=== PATIENT | male | born 1950 | race Caucasian/White ===

== ENCOUNTER 2019-05-25 16:56 | Inpatient (IN) | payer OTHER ==
[~2019-05-25] VITALS: Ht 177.8 cm; Wt 105.0 kg
[~2019-05-25 16:56] MED LIST: CYCL10 PO; LISI5 PO; METO50ER PO; MORP15ER PO; NITR.4SL SL; POTA10T PO; Prozac20 MG PO
[2019-05-25] MEDS ORDERED: FUROSEMIDE20 MG PO (17:24)
[2019-05-25] MEDS ORDERED: ZOLP10 PO (17:25)
[2019-05-25 17:44] LABS: BASOPHILS ABSOLUTE AUTO 0.03 K/mm3 (0.00-0.23); BASOPHILS PERCENT AUTO 0 % (0-2); EOSINOPHILS ABSOLUTE AUTO 0.16 K/mm3 (0.00-0.68); EOSINOPHILS PERCENT AUTO 1 % (0-6); Hematocrit 42.7 % (37.0-53.0); Hemoglobin 14.3 g/dL (13.5-17.5); IMMATURE GRAN ABSOLUTE AUTO 0.06 K/mm3 (0.00-0.10); IMMATURE GRAN PERCENT AUTO 1 % (0-1); LYMPHOCYTES ABSOLUTE AUTO 1.53 K/mm3 (0.84-5.20); LYMPHOCYTES PERCENT AUTO 12 % (21-46); MONOCYTES ABSOLUTE AUTO 0.91 K/mm3 (0.16-1.47); MONOCYTES PERCENT AUTO 7 % (4-13); Mean Corpuscular HGB 27.9 pg (26.0-34.0); Mean Corpuscular HGB Conc 33.5 g/dL (31.5-36.5); Mean Corpuscular Volume 83 fL (80-100); Mean Platelet Volume 10.1 fL (9.1-12.4); NEUTROPHILS ABSOLUTE AUTO 9.71 K/mm3 (1.96-9.15); NEUTROPHILS PERCENT AUTO 78 % (41-73); Platelet Count 209 K/mm3 (150-400); RDW Coefficient Variation 16.4 % (11.7-14.2); RDW Standard Deviation 49.8 fL (35.1-46.3); Red Blood Cell Count 5.12 M/mm3 (4.30-5.90)
[2019-05-25 18:12] LABS: Alanine Aminotransfer (ALT/SGP 18 U/L (12-78); Albumin, Blood 3.5 g/dL (3.4-5.0); Albumin/Globulin Ratio 1.2 (0.8-1.8); Alk Phos 92 U/L (50-136); Anion Gap 11 mmol/L (6-16); Aspartate Aminotrans (AST/SGOT 20 U/L (12-37); Bilirubin, Total 0.6 mg/dL (0.1-1.0); Blood Urea Nitrogen 17 mg/dL (8-24); Bun/Creatinine Ratio 11.9 (12.0-20.0); CO2, Blood 24 mmol/L (21-32); Calcium, Blood 6.5 mg/dL (8.5-10.1); Chloride, Blood 107 mmol/L (98-108); Creatinine, Blood 1.43 mg/dL (0.60-1.20); Glomerular Filtration Rate 52 (60-); Glucose, Blood 161 mg/dL (70-99); Potassium, Blood 2.6 mmol/L (3.5-5.5); Sodium, Blood 142 mmol/L (136-145); Total Protein, Blood 6.5 g/dL (6.4-8.2); Troponin I <0.015 ng/mL (0.000-0.040)
[2019-05-25 19:28] LABS: International Normalized Ratio 0.97; Prothrombin Time Results 10.3 Sec (9.7-11.5)
--- NOTE | 2019-05-26 00:47 | NUR ---
PATIENT ADMITTED FROM ER. AAOX4. B/P 197/132. SPOKE WITH LAUNDROMAT MANAGER PHYSICIAN WHO WANTS NG TUBE PLACED AND PREMEDICATED WITH ATIVAN FOR PLACEMENT. SPOKE TO NURSING LOGISTICS PLANNING ENGINEER MAGDALENA ANDERSON WHO REQUESTED THAT RESPIRATORY PLACE PATIENT ON CONTINUOUS PULSE OXIMETRY. PATIENT PLACED ON CONT. SPO2 MONITOR AND DOCK SUPERINTENDENT PLACED NG TUBE AFTER PATIENT MEDICATED WITH 2MG ATIVAN. TUBE PLACED AND ONLY SMALL AMOUNT OF FLUID ASPIRATED. SPOKE TO LAUNDROMAT MANAGER PHYSICIAN AGAIN REQUESTING XRAY VERIFICATION OF NG TUBE. ORDER PLACED AND WAITING FOR XRAY TO BE OBTAINED. PATIENT RESTING COMFORTABLY IN BED. RATES PAIN AT 4 WITH NO LONGER COMPLAINING OF NAUSEA. WILL CONTINUE TO MONITOR AND WAIT FOR XRAY RESULTS.
[2019-05-26 05:06] LABS: BASOPHILS ABSOLUTE AUTO 0.01 K/mm3 (0.00-0.23); BASOPHILS PERCENT AUTO 0 % (0-2); EOSINOPHILS ABSOLUTE AUTO 0.03 K/mm3 (0.00-0.68); EOSINOPHILS PERCENT AUTO 0 % (0-6); Hematocrit 38.7 % (37.0-53.0); Hemoglobin 12.8 g/dL (13.5-17.5); IMMATURE GRAN ABSOLUTE AUTO 0.02 K/mm3 (0.00-0.10); IMMATURE GRAN PERCENT AUTO 0 % (0-1); LYMPHOCYTES ABSOLUTE AUTO 1.45 K/mm3 (0.84-5.20); LYMPHOCYTES PERCENT AUTO 18 % (21-46); MONOCYTES ABSOLUTE AUTO 0.85 K/mm3 (0.16-1.47); MONOCYTES PERCENT AUTO 11 % (4-13); Mean Corpuscular HGB 27.2 pg (26.0-34.0); Mean Corpuscular HGB Conc 33.1 g/dL (31.5-36.5); Mean Corpuscular Volume 82 fL (80-100); Mean Platelet Volume 10.1 fL (9.1-12.4); NEUTROPHILS ABSOLUTE AUTO 5.72 K/mm3 (1.96-9.15); NEUTROPHILS PERCENT AUTO 71 % (41-73); Platelet Count 173 K/mm3 (150-400); RDW Coefficient Variation 16.5 % (11.7-14.2); RDW Standard Deviation 49.7 fL (35.1-46.3); White Blood Cell Count 8.08 K/mm3 (4.00-11.30)
--- NOTE | 2019-05-26 05:08 | NUR ---
SHIFT SUMMARY AAOX4. BP ELEVATED AND PHYSICIAN NOTIFIED AND ORDERS RECEIVED. NG TUBE PLACED AND CONNECTED TO LOW INTERMITTENT SUCTION. NAUSEA RESOLVED AFTER NG TUBE PLACED. XRAY OBTAINED FOR NG TUBE PLACEMENT. PATIENT PLACED ON CONTINUOUS PULSE OX AFTER RECEIVING 2MG ATIVAN FOR TUBE PLACEMENT. PATIENT UP SBA. WILL CONTINUE TO MONITOR AND REPORT TO ONCOMING SHIFT.
[2019-05-26 05:35] LABS: Bun/Creatinine Ratio 11.8 (12.0-20.0); Calcium, Blood 6.5 mg/dL (8.5-10.1); Creatinine, Blood 1.27 mg/dL (0.60-1.20); Potassium, Blood 3.3 mmol/L (3.5-5.5)
--- NOTE | 2019-05-26 16:58 | NUR ---
SHIFT SUMMARY PATIENT IS HAVING MINIMAL OUTPUT, NOTED 100CC SINCE START OF SHIFT. PATIENT HAS HAD 1 EPISODE OF GAS NOTED. HYPOACTIVE BOWELS. NO NAUSEA. BLOOD PRESSURE ELEVATED. WORKING WITH DR AND MEDS PER EMAR TO GET THIS WNL. PATIENT IS ALERT AND ORIENTED. ABLE TO MAKE NEEDS KNOWN. MEDICATED FOR PAIN REGULARLY. BEDBATH GIVEN TODAY.
[2019-05-26 17:11] LABS: C-REACTIVE PROTEIN, EXT RANGE 1.69 mg/dL (0.000-0.300)
[2019-05-26 17:41] LABS: Potassium, Blood 3.2 mmol/L (3.5-5.5)
--- NOTE | 2019-05-27 00:38 | NUR ---
AFTER RECEIVING REPORT I NOTICED THAT THE PATIENT HAD SHY RED BLOOD IN THE TUBING OF HIS NG TUBE. I NOTIFIED THE HYDROCHLORIC ACID OPERATOR PHYSICIAN ABOUT BLOOD COMING FROM NG TUBE. WILL CONTINUE TO MONITOR PER PHYSICIAN RECOMMENDATION. PATIENTS NG TUBE THEN WAS ACCIDENTALLY PULLED OUT WHILE PATIENT WAS GETTING BACK IN BED FROM THE [facility]. PATIENT STATES HE DOES NOT WANT THE TUBE REPLACED AT THIS TIME BUT IF HE BECOMES NAUSEOUS WE CAN REEVALUATE TUBE BEING REPLACED. PAIENT ALSO STATES THAT MAYBE HE WILL BE WILLING TO REPLACE THE TUBE IN THE MORNING. WILL CONTINUE TO MONITOR.
--- NOTE | 2019-05-27 02:57 | NUR ---
REPLACED NG TUBE AFTER PATIENT BEGAN HAVING NAUSEA AND SOME VOMITING. TUBE PLACED AND CLEAR MUCOUS LIKE LIQUID WAS PULLED THROUGH TUBE. CONNECTED TO LOW INTERMITTENT SUCTION.
--- NOTE | 2019-05-27 04:46 | NUR ---
SHIFT SUMMARY BLOOD PRESSURE BETTER CONTROLLED. NG TUBE REPLACED AFTER ACCIDENTALLY BEING PULLED. BLOOD NO LONGER SEEN IN TUBING. AAOX4. PAIN NOT WELL CONTROLLED BY DILAUDID. PATIENT RATING HEADACHE PAIN 9/10.STEAM FITTER PHYSICIAN NOTIFIED ABOUT SHY RED BLOOD IN NG TUBE. UP 1 PERSON ASSIST TO BSC. WILL CONTINUE TO MONITOR.
[2019-05-27 05:02] LABS: BASOPHILS ABSOLUTE AUTO 0.01 K/mm3 (0.00-0.23); BASOPHILS PERCENT AUTO 0 % (0-2); EOSINOPHILS ABSOLUTE AUTO 0.07 K/mm3 (0.00-0.68); EOSINOPHILS PERCENT AUTO 1 % (0-6); Hematocrit 34.5 % (37.0-53.0); Hemoglobin 11.2 g/dL (13.5-17.5); IMMATURE GRAN ABSOLUTE AUTO 0.04 K/mm3 (0.00-0.10); IMMATURE GRAN PERCENT AUTO 1 % (0-1); LYMPHOCYTES ABSOLUTE AUTO 1.04 K/mm3 (0.84-5.20); LYMPHOCYTES PERCENT AUTO 13 % (21-46); MONOCYTES ABSOLUTE AUTO 0.78 K/mm3 (0.16-1.47); MONOCYTES PERCENT AUTO 10 % (4-13); Mean Corpuscular HGB 27.2 pg (26.0-34.0); Mean Corpuscular HGB Conc 32.5 g/dL (31.5-36.5); Mean Corpuscular Volume 84 fL (80-100); Mean Platelet Volume 10.3 fL (9.1-12.4); NEUTROPHILS ABSOLUTE AUTO 6.12 K/mm3 (1.96-9.15); NEUTROPHILS PERCENT AUTO 76 % (41-73); Platelet Count 175 K/mm3 (150-400); RDW Coefficient Variation 16.9 % (11.7-14.2); RDW Standard Deviation 51.8 fL (35.1-46.3); Red Blood Cell Count 4.12 M/mm3 (4.30-5.90); White Blood Cell Count 8.06 K/mm3 (4.00-11.30)
[2019-05-27 05:20] LABS: Albumin, Blood 3.2 g/dL (3.4-5.0); Anion Gap 6 mmol/L (6-16); Blood Urea Nitrogen 10 mg/dL (8-24); Bun/Creatinine Ratio 9.5 (12.0-20.0); CO2, Blood 27 mmol/L (21-32); Calcium, Blood 6.7 mg/dL (8.5-10.1); Chloride, Blood 107 mmol/L (98-108); Creatinine, Blood 1.05 mg/dL (0.60-1.20); Glomerular Filtration Rate >60 (60-); Glucose, Blood 102 mg/dL (70-99); Phosphorus, Blood 2.7 mg/dL (2.5-4.9); Potassium, Blood 3.2 mmol/L (3.5-5.5); Sodium, Blood 140 mmol/L (136-145)
--- NOTE | 2019-05-27 08:58 | NUR ---
LEFT MESSAGE ON VOICE MAIL FOR SOMETHING FOR NAUSEA
--- NOTE | 2019-05-27 09:13 | NUR ---
PER GIVE EXTRA DOSE ZOFRAN 4 MG IV.
--- NOTE | 2019-05-27 09:28 | NUR ---
NG TAKEN OUTM ABOUTY 0910 WAS CURLED UP IN MOUITH DUE TO RETCHING.
--- NOTE | 2019-05-27 10:01 | NUR ---
PER PATIENT GOING TO SURGERY TODAY FOR SM INTESTINE RESECTION. PER MD IF PATIENT DOES NOT WISH NG REPLACED DOES NOT NEED TO HAVE IT. PER MD NG WILL NOT HELP.
--- NOTE | 2019-05-27 16:48 | NUR ---
05/27/19 1648 Jonathan Swift CONVERTED FROM OPEN EX LAP TO DIAGNOSTIC LAPAROSCOPIC AT 1650. RELIEF COUNT DONE WITH NEW STAFF.
--- NOTE | 2019-05-27 18:09 | NUR ---
REPORT TO ROCHELLE DYE IN PCU. PATIENT TO GO TO PCU AFTER SURGERY.ANSWER ALL QUESTIONS. BELONGINGS TAKEN TO PCU
--- NOTE | 2019-05-27 18:37 | NUR ---
pt's belongings are now sent to pcu 16 family member came up stairs and asked where he was i dirrected her to the location mentioned to me by the nurse.
[2019-05-28 03:30] LABS: BASOPHILS PERCENT AUTO 0 % (0-2); EOSINOPHILS PERCENT AUTO 0 % (0-6); Hematocrit 33.3 % (37.0-53.0); Hemoglobin 10.8 g/dL (13.5-17.5); IMMATURE GRAN ABSOLUTE AUTO 0.05 K/mm3 (0.00-0.10); IMMATURE GRAN PERCENT AUTO 0 % (0-1); LYMPHOCYTES ABSOLUTE AUTO 0.71 K/mm3 (0.84-5.20); LYMPHOCYTES PERCENT AUTO 6 % (21-46); MONOCYTES PERCENT AUTO 5 % (4-13); Mean Corpuscular HGB 27.8 pg (26.0-34.0); Mean Corpuscular HGB Conc 32.4 g/dL (31.5-36.5); Mean Corpuscular Volume 86 fL (80-100); Mean Platelet Volume 10.2 fL (9.1-12.4); NEUTROPHILS ABSOLUTE AUTO 9.89 K/mm3 (1.96-9.15); NEUTROPHILS PERCENT AUTO 89 % (41-73); Platelet Count 170 K/mm3 (150-400); RDW Coefficient Variation 17.2 % (11.7-14.2); RDW Standard Deviation 55.2 fL (35.1-46.3); Red Blood Cell Count 3.89 M/mm3 (4.30-5.90); White Blood Cell Count 11.15 K/mm3 (4.00-11.30)
[2019-05-28 03:55] LABS: Alanine Aminotransfer (ALT/SGP 27 U/L (12-78); Alk Phos 78 U/L (50-136); Anion Gap 8 mmol/L (6-16); Aspartate Aminotrans (AST/SGOT 40 U/L (12-37); Bilirubin, Total 0.7 mg/dL (0.1-1.0); Blood Urea Nitrogen 13 mg/dL (8-24); Bun/Creatinine Ratio 11.1 (12.0-20.0); CO2, Blood 25 mmol/L (21-32); Calcium, Blood 6.6 mg/dL (8.5-10.1); Chloride, Blood 107 mmol/L (98-108); Creatinine, Blood 1.17 mg/dL (0.60-1.20); Glomerular Filtration Rate >60 (60-); Glucose, Blood 137 mg/dL (70-99); Potassium, Blood 3.4 mmol/L (3.5-5.5); Sodium, Blood 140 mmol/L (136-145)
--- NOTE | 2019-05-28 04:18 | NUR ---
ASSUMED CARE APPROXIMATELY 192; PT COMING FROM SURGICAL PROCEDURE, RHODA TY; PT TALKING TO SPOUSE AT BEDSIDE 2-3 WORD SENTENCES; PT C/O SEVERE PAIN; PT MEDICATED PER EMAR CONSISTENTLY THROUGH THE NIGHT; SURGICAL SITE AQUACELL BANDAGE APPEARS TO BE SOAKED BUT NOT THROUGH; PT HAS TRIED TO URINATE A FEW TIMES IN THE NIGHT STATES THAT HE NEEDS TO BUT CANNOT; L HAND FIELD START IV DC'D; PT HAS 20G IV IN R HAND; CALL LIGHT IN REACH; BED IN LOWEST POSITION; WILL CONTINUE TO MONITOR AND ASSESS UNTIL HAND OFF TO DAY SHIFT RN.
--- NOTE | 2019-05-28 05:55 | NUR ---
BLADDER SCAN: PATIENT BLADDER SCANED DUE TO THE FACT THAT PATIENT HAD ONLY VOIDED APPROX 10 ML'S THROUGHOUT THE NIGHT. PATIENT ALREADY HAVING ABD PAIN DUE TO RECENT SURGERY. PATIENT BLADDER SANED WITH THE RESULT OF 298 ML'S. CHARGE NURSE AWARE AND STATES IT'S FINE TO GIVE HIM MORE TIME TO VOID ON HIS OWN. PATIENT VERY ADAMANT THAT HE DOES NOT WANT TO HAVE A CATHETER PLACED.
--- NOTE | 2019-05-28 15:15 | NUR ---
Pt ref bath. Says will be here soon and doesn't want to "conflict that" I told him to just call when he is ready and I will come help him. He said thank you and then asked if he could have it tele off since is IV meds are done. I explaied that we have to have a DR order for that and that I would talk to his RN so she can figure all that out. call light in reach.
--- NOTE | 2019-05-28 17:30 | NUR ---
SHIFT SUMMARY PT ALERT AND ORIENTED. VS STABLE. O2 SATS REMAIN ABOVE 90% ON RA. HR NSR RATE IN 80'S. AQUACEL DRESSING CHANGED THIS SHIFT. PT COMPLAINS OF PAIN IN HER ABD AND MEDICATED PER EMAR. PT TOLERATING CLEAR LIQUIDS. DIET TO BE ADVANCED TOLERATED. PT TO BE TRANSFERRED TO SURGICAL FLOOR.
--- NOTE | 2019-05-28 18:23 | NUR ---
PT TO RM 224 FROM PCU. RESTING IN BED. REPORTED 10/10 PAIN, MEDICATED PER ORDERS W/1 MG IV DILAUDID. DENIES ANY OTHER NEEDS AT THIS TIME. DRESSING TO MIDLINE ABDOMINAL INCISION HAS SMALL AMT SHADOWING. SPOUSE AT BEDSIDE. CALL LIGHT IN REACH.
[2019-05-29 04:33] LABS: BASOPHILS ABSOLUTE AUTO 0.01 K/mm3 (0.00-0.23); BASOPHILS PERCENT AUTO 0 % (0-2); EOSINOPHILS PERCENT AUTO 1 % (0-6); Hemoglobin 10.7 g/dL (13.5-17.5); IMMATURE GRAN ABSOLUTE AUTO 0.06 K/mm3 (0.00-0.10); IMMATURE GRAN PERCENT AUTO 1 % (0-1); LYMPHOCYTES ABSOLUTE AUTO 1.12 K/mm3 (0.84-5.20); LYMPHOCYTES PERCENT AUTO 12 % (21-46); MONOCYTES ABSOLUTE AUTO 1.29 K/mm3 (0.16-1.47); MONOCYTES PERCENT AUTO 13 % (4-13); Mean Corpuscular HGB 27.4 pg (26.0-34.0); Mean Corpuscular HGB Conc 32.4 g/dL (31.5-36.5); Mean Corpuscular Volume 84 fL (80-100); Mean Platelet Volume 10.2 fL (9.1-12.4); NEUTROPHILS ABSOLUTE AUTO 7.17 K/mm3 (1.96-9.15); NEUTROPHILS PERCENT AUTO 74 % (41-73); Platelet Count 205 K/mm3 (150-400); RDW Coefficient Variation 17.3 % (11.7-14.2); RDW Standard Deviation 53.3 fL (35.1-46.3); Red Blood Cell Count 3.91 M/mm3 (4.30-5.90); White Blood Cell Count 9.75 K/mm3 (4.00-11.30)
[2019-05-29 04:55] LABS: Alanine Aminotransfer (ALT/SGP 29 U/L (12-78); Alk Phos 79 U/L (50-136); Anion Gap 10 mmol/L (6-16); Aspartate Aminotrans (AST/SGOT 40 U/L (12-37); Bilirubin, Total 0.5 mg/dL (0.1-1.0); Blood Urea Nitrogen 13 mg/dL (8-24); Bun/Creatinine Ratio 11.5 (12.0-20.0); CO2, Blood 27 mmol/L (21-32); Calcium, Blood 6.3 mg/dL (8.5-10.1); Chloride, Blood 104 mmol/L (98-108); Creatinine, Blood 1.13 mg/dL (0.60-1.20); Glomerular Filtration Rate >60 (60-); Glucose, Blood 103 mg/dL (70-99); Phosphorus, Blood 2.2 mg/dL (2.5-4.9); Potassium, Blood 2.9 mmol/L (3.5-5.5); Sodium, Blood 141 mmol/L (136-145)
--- NOTE | 2019-05-29 06:08 | NUR ---
SHIFT SUMMARY LYING IN LOW FOWLERS WITH EYES OPEN WHILE WATCHING TV. HAS BEEN PLEASANT AND COOPERATIVE THIS SHIFT. PAIN MANAGAMENT VIA PRN MEDS. DENIES FURTHER NEEDS AT THIS TIME. SAFETY MEASURES IN PLACE. WILL GIVE HAND OFF TO ONCOMING SHIFT USING SBAR.
--- NOTE | 2019-05-29 16:56 | NUR ---
SHIFT SUMMARY PT ABD FIRM AND DISTENDED BUT PASSING GAS. ONLY TAKING SIPS OF WATER SINCE BREAKFAST. UP TO USE BATHROOM SEVERAL TIMES BUT REPORTS FEELING HE DID NOT FEEL UP TO WALKING IN HALLWAY. HTN CONTINUES W/ RELIEF FROM IV HYDRALAZINE. PAIN IS SOMEWHAT BETTER CONTROLLED FROM CHANGING TO TID BUT STILL HIGH.
[2019-05-30 03:47] LABS: Adenovirus F 40/41 Not Detected (NOT DETECT); Astrovirus Not Detected (NOT DETECT); Campylobacter Sp Not Detected (NOT DETECT); Cryptosporidium Not Detected (NOT DETECT); Cyclospora Cayetanensis Not Detected (NOT DETECT); E. Coli O157 Not Detected (NOT DETECT); Entamoeba Histolytica Not Detected (NOT DETECT); Enteroaggregative E. coli-EAEC Not Detected (NOT DETECT); Enteropathogenic E. coli-EPEC Not Detected (NOT DETECT); Enterotoxigenic E. coli-ETEC Not Detected (NOT DETECT); Giardia Lamblia Not Detected (NOT DETECT); Norovirus GI/GII Not Detected (NOT DETECT); Plesiomonas Shigelloides Not Detected (NOT DETECT); Rotavirus A Not Detected (NOT DETECT); Salmonella Sp Not Detected (NOT DETECT); Sapovirus Not Detected (NOT DETECT); Shiga Toxin-prod E. coli-STEC Not Detected (NOT DETECT); Shigella/Enteroin E. coli-EIEC Not Detected (NOT DETECT); Vibrio Cholerae Not Detected (NOT DETECT); Vibrio Sp Not Detected (NOT DETECT); Yersinia Enterocolitica Not Detected (NOT DETECT)
[2019-05-30 04:45] LABS: Anion Gap 13 mmol/L (6-16); Blood Urea Nitrogen 12 mg/dL (8-24); Bun/Creatinine Ratio 10.3 (12.0-20.0); CO2, Blood 24 mmol/L (21-32); Calcium, Blood 6.1 mg/dL (8.5-10.1); Chloride, Blood 101 mmol/L (98-108); Creatinine, Blood 1.17 mg/dL (0.60-1.20); Glomerular Filtration Rate >60 (60-); Glucose, Blood 112 mg/dL (70-99); Phosphorus, Blood 3.7 mg/dL (2.5-4.9); Potassium, Blood 2.8 mmol/L (3.5-5.5); Sodium, Blood 138 mmol/L (136-145)
--- NOTE | 2019-05-30 06:35 | NUR ---
SHIFT SUMMARY PT POD#3 OPEN MELONY. AAOX4. DISCOMFORT CONTROLLED WITH SCHEDULED MS CONTIN + 1MG IV DILAUDID X1 THIS SHIFT, NAUSEA CONTROLLED WITH 4MG IV ZOFRAN X1, NO EMESIS. ABD INCISIONS WITH DRESSING, QUARTER SIZE RED DRAINAGE NOTED UPON ASSESSMENT, NO INCREASE THIS SHIFT. PT UP TO RESTROOM SBA WITH FWW, CONTINUE TO ENCOURAGE. MULTIPLE LOOSE BMs THIS SHIFT. PT REPORTING THE SENSATION OF NEEDING TO VOID, BLADDER SCAN POST VOID OF 350cc, PT EDUCATED REGARDING NEXT INTERVENTIONS + PT REFUSING STRAIGHT CATHETER T/O NIGHT, CONTINUE TO EDUCATE. PT RESTING WELL THIS AM. CALL CEDRIC IN LACHELLE GRANADOS.
--- NOTE | 2019-05-30 18:08 | NUR ---
PATIENT ENCOURAGED TO BE OOB AMBULATING THIS SHIFT. PATIENT IS RESISTIVE TO ACTIVITY DUE TO FEAR OF EXPLOSIVE LIQUID STOOL. PATIENT WITH 1 EPISODE OF INCONT OF STOOL. PT REPORTS CHRONIC BACK AND ABD PAIN AND FAIR RELIEF WITH PAIN MEDS. PT YUAN DIET WITHOUT NAUSEA. IV POTASSIUM INFUSION SLOWED FROM SCHEDULED RATE DUE TO PATIENTS REPORT OF BURNING AND ARM PAIN WITH INFUSION. PATIENT IN ISOLATION FOR C DIFF
[2019-05-31 05:12] LABS: Albumin, Blood 2.9 g/dL (3.4-5.0); Anion Gap 9 mmol/L (6-16); Blood Urea Nitrogen 13 mg/dL (8-24); Bun/Creatinine Ratio 11.5 (12.0-20.0); CO2, Blood 27 mmol/L (21-32); Calcium, Blood 6.7 mg/dL (8.5-10.1); Chloride, Blood 100 mmol/L (98-108); Creatinine, Blood 1.13 mg/dL (0.60-1.20); Glomerular Filtration Rate >60 (60-); Glucose, Blood 89 mg/dL (70-99); Phosphorus, Blood 2.7 mg/dL (2.5-4.9); Potassium, Blood 2.9 mmol/L (3.5-5.5); Sodium, Blood 136 mmol/L (136-145)
--- NOTE | 2019-05-31 06:43 | NUR ---
SHIFT SUMMARY: LUIS HAS COMPLAINED OF 7-9/10 PAIN FOR WHICH IV DILAUDID IS EFFECTIVE. HE STATES THAT HIS CHRONIC BACK PAIN HAS A BASELINE OF 6/10. HE REPORTED 2 EPISDOES OF DIARRHEA LAST NIGHT. HE IS INDEPENDENT IN HIS ROOM. HE IS ABLE TO MAKE HIS NEEDS KNOWN. NO ACUTE CHANGES THIS SHIFT.
--- NOTE | 2019-05-31 12:20 | NUR ---
1145 iv infiltrated k rider infusing, tender, iv site slightly puffy and dc'd. spoke with dr Reinoso regarding IV
[2019-05-31 15:26] LABS: BASOPHILS ABSOLUTE AUTO 0.02 K/mm3 (0.00-0.23); BASOPHILS PERCENT AUTO 0 % (0-2); EOSINOPHILS ABSOLUTE AUTO 0.38 K/mm3 (0.00-0.68); EOSINOPHILS PERCENT AUTO 5 % (0-6); Hemoglobin 11.7 g/dL (13.5-17.5); IMMATURE GRAN ABSOLUTE AUTO 0.04 K/mm3 (0.00-0.10); IMMATURE GRAN PERCENT AUTO 1 % (0-1); LYMPHOCYTES ABSOLUTE AUTO 1.04 K/mm3 (0.84-5.20); LYMPHOCYTES PERCENT AUTO 14 % (21-46); MONOCYTES ABSOLUTE AUTO 1.23 K/mm3 (0.16-1.47); MONOCYTES PERCENT AUTO 16 % (4-13); Mean Corpuscular HGB 27.5 pg (26.0-34.0); Mean Corpuscular HGB Conc 32.5 g/dL (31.5-36.5); Mean Corpuscular Volume 85 fL (80-100); Mean Platelet Volume 10.3 fL (9.1-12.4); NEUTROPHILS ABSOLUTE AUTO 5.02 K/mm3 (1.96-9.15); NEUTROPHILS PERCENT AUTO 65 % (41-73); Platelet Count 256 K/mm3 (150-400); RDW Coefficient Variation 16.6 % (11.7-14.2); RDW Standard Deviation 51.3 fL (35.1-46.3); Red Blood Cell Count 4.26 M/mm3 (4.30-5.90); White Blood Cell Count 7.73 K/mm3 (4.00-11.30)
--- NOTE | 2019-05-31 18:18 | NUR ---
PATIENT RESISTANT TO ACTIVITY THIS SHIFT AND HAS DECLINED TO SIT IN CHAIR OR AMBULATE OTHER THAN WHEN AMBULATES TO BATHROOM TO VOID. PATIENT REPORTS ONE SMALL, BROWN, LIQUID STOOL AND SEVERAL EPISODED OF PASSING FLATUS. PATIENT YUAN SMALL AMOUNTS OF REGULAR DIET WITHOUT NAUSEA.
[2019-06-01 04:35] LABS: Albumin, Blood 2.8 g/dL (3.4-5.0); Anion Gap 9 mmol/L (6-16); Blood Urea Nitrogen 10 mg/dL (8-24); Bun/Creatinine Ratio 9.5 (12.0-20.0); CO2, Blood 28 mmol/L (21-32); Calcium, Blood 7.1 mg/dL (8.5-10.1); Chloride, Blood 100 mmol/L (98-108); Creatinine, Blood 1.05 mg/dL (0.60-1.20); Glomerular Filtration Rate >60 (60-); Glucose, Blood 89 mg/dL (70-99); Phosphorus, Blood 2.7 mg/dL (2.5-4.9); Sodium, Blood 137 mmol/L (136-145)
--- NOTE | 2019-06-01 04:41 | NUR ---
SHIFT SUMMARY POD 5 EXLAP AND LAP MELONY PATIENT AA0X4. BP ELEVATED, PRN HYDRALAZINE GIVEN. MEDICATED FOR PAIN X2 DURING SHIFT, PATIENT HAS BEEN SLEEPING IN BED DURING SHIFT. STATES PAIN RELIEVED WELL WITH MEDICATION. PATIENT STILL PASSING LOOSE STOOLS, ABLE TO AMBULATE TO BATHROOM. STILL DISTENDED ABD. LUNGS COARSE, ENCOURAGED INCENTIVE SPIROMETRY, EDUCATED PATIENT ON PURPOSE. EXPRESSED UNDERSTANDING AND WAS ABLE TO DO TASK INDEPENDENTLY.
--- NOTE | 2019-06-01 16:56 | NUR ---
SUMMARY: PT IS POD5 LAP/OPEN MELONY. NO ACUTE CHANGE TODAY. SURGERY HAS SIGNED OFF. VSS, PT IS A/O, INDEPENDENT IN ROOM. SURGICAL SITES WNL. PT PAIN AND BLOOD PRESSURE MEDS EDITED TODAY, PT BP AND PAIN STABLE AT THIS TIME. NO IV HYDRALAZINE NEEDED TODAY. CONTINUES TO HAVE LOOSE STOOLS, CDIFF POSTIVE, RECIEVING PO VANCO. PLAN IS POSSIBLE DC TOMORROW.
[2019-06-02 05:23] LABS: Albumin, Blood 2.8 g/dL (3.4-5.0); Anion Gap 9 mmol/L (6-16); Blood Urea Nitrogen 9 mg/dL (8-24); Bun/Creatinine Ratio 8.2 (12.0-20.0); CO2, Blood 28 mmol/L (21-32); Calcium, Blood 7.1 mg/dL (8.5-10.1); Chloride, Blood 101 mmol/L (98-108); Glomerular Filtration Rate >60 (60-); Glucose, Blood 92 mg/dL (70-99); Phosphorus, Blood 3.2 mg/dL (2.5-4.9); Potassium, Blood 3.1 mmol/L (3.5-5.5); Sodium, Blood 138 mmol/L (136-145)
--- NOTE | 2019-06-02 07:05 | NUR ---
SUMMARY CALLED DR EDWARDS REGARDING PT C/O PO MORPHINE INEFFECTIVE FOR ACUTE PAIN. ROBYN ORDERED 1 DOSE MORPHINE IV AND WAS GIVEN.PT REPORTED EFFECTIVE AND SLEPT AFTER WITH NO DISTRESS.
[2019-06-02] MEDS ORDERED: CALCIUM 600 +1 EA11 PO (11:43)
[2019-06-02] MEDS ORDERED: Vsl#3 Capsule1 EACH PO (11:45)
[2019-06-02] MEDS ORDERED: VANCOCIN HCL250 MG PO (11:47)
[2019-06-02] MEDS ORDERED: Vitamin D2000 UNIT PO (11:48)
--- NOTE | 2019-06-02 13:05 | NUR ---
DISCHARGE: PACKET PRINTED. MEDS CALLED TO [facility], PT GIVEN SCRIPT. PT VERBALIZED UNDERSTANDING OF EDUCATION. PT LEFT UNIT VIA WHEELCHAIR WITH AND THAO SMITH AT ABOUT 1250
--- NOTE | 2019-06-02 17:06 | NUR ---
MED REC FAXED TO [facility] AT 9722
--- NOTE | 2019-06-02 17:21 | NUR ---
DR. RODARTE SPOKE WITH THIS RN CONCERNING PT DSICHARGED/HOME METOPROLOL DOSE. PT CALLED AND MADE AWARE THAT PT PRESCRIBED DOSE NEEDED TO BE CHANGED. PT NEREIDA, TO DAY CARE HOME MOTHER DIFFERENT SCRIPT FOR METOPROLOL TARTRATE 50MG XL 100MG PO DAILY, DISP: 30. SAYS THAT SHE WILL DAY CARE HOME MOTHER SCRIPT TONIGHT. WILL MAKE CHARGE NOC RN AWARE AND LEAVE SCRIPT AT NURSES STATION.
== END 2019-06-02 12:50 | disposition home or self-care (01) | DRG 418 ==
LOC: ER 16:56 → MEDS 16:57 → PCU 05-27 19:06 → SURS 05-28 18:13
PROVIDERS: Emergency Medicine; Internal Medicine; Nurse Practitioner Acute Care; Surgery; ADMIT Hospitalist
PROC: 0FT44ZZ Resection of Gallbladder, Percutaneous Endoscopic Approach (ICD-10-PCS; principal; 2019-05-27 14:00)
DX: K80.20 Calculus of gallbladder without cholecystitis without obstruction (principal); A04.72 Enterocolitis due to Clostridium difficile, not specified as recurrent; I48.0 Paroxysmal atrial fibrillation; F32.9 Major depressive disorder, single episode, unspecified; J45.909 Unspecified asthma, uncomplicated; E78.5 Hyperlipidemia, unspecified; Z86.73 Personal history of transient ischemic attack (TIA), and cerebral infarction without residual deficits; I45.81 Long QT syndrome; I25.10 Atherosclerotic heart disease of native coronary artery without angina pectoris; G89.29 Other chronic pain; E87.6 Hypokalemia; N18.3 Chronic kidney disease, stage 3 (moderate); E83.51 Hypocalcemia; E55.9 Vitamin D deficiency, unspecified; I12.9 Hypertensive chronic kidney disease with stage 1 through stage 4 chronic kidney disease, or unspecified chronic kidney disease
CPT/HCPCS: 0097U; 36415; 71045; 74174; 74176; 76377; 80048; 80053; 80069; 82306; 82330; 82652; 83605; 83615; 83690; 83735; 83970; 84132; 84484; 85025; 85610; 85651; 85730; 86140; 87324; 88304; 93005; 93010; 94640; 94760; 96361; 96365-59; 96366; 96368; 96375-59; 96376-59; 97116; 97162; 97166; 97530; 97535; 99285-25; J0360; J0610; J1100; J1170; J2060; J2250; J2270; J2405; J2543; J2704; J2710; J3010; J3480; J7030; J7050; J7060; J7120; Q9967

== ENCOUNTER 2019-07-20 09:45 | Emergency (ER) | payer OTHER ==
[~2019-07-20] VITALS: Ht 182.9 cm; Wt 99.8 kg
[~2019-07-20 09:45] MED LIST changes: +CALCIUM 600 +1 EA11 PO; +FUROSEMIDE20 MG PO; +VANCOCIN HCL250 MG PO; +Vitamin D2000 UNIT PO; +Vsl#3 Capsule1 EACH PO; +ZOLP10 PO
== END 2019-07-20 11:09 | disposition home or self-care (01) ==
LOC: ER 09:45
DX: G89.29 Other chronic pain (principal); M54.5 Low back pain; R33.9 Retention of urine, unspecified; I10 Essential (primary) hypertension; J45.909 Unspecified asthma, uncomplicated; I48.91 Unspecified atrial fibrillation; E78.5 Hyperlipidemia, unspecified; Z88.5 Allergy status to narcotic agent; Z88.6 Allergy status to analgesic agent; Z79.899 Other long term (current) drug therapy; Z88.8 Allergy status to other drugs, medicaments and biological substances; Z86.73 Personal history of transient ischemic attack (TIA), and cerebral infarction without residual deficits
CPT/HCPCS: 51798; 96374; 99283-25; J1170

== ENCOUNTER 2019-08-31 15:12 | Inpatient (IN) | payer OTHER, MEDICARE ==
[~2019-08-31] VITALS: Ht 180.3 cm; Wt 100.5 kg
[2019-08-31] MEDS ORDERED: BUDE6HFA INH (16:20)
[2019-08-31] MEDS ORDERED: FAMO20 PO (16:21)
[2019-08-31] MEDS ORDERED: GABA800 PO (16:22)
[2019-08-31] MEDS ORDERED: BACL10 PO (16:22)
[2019-08-31] MEDS ORDERED: ZOCOR20 MG PO (16:23)
[2019-08-31] MEDS ORDERED: Cymbalta20 MG PO (16:23)
[2019-08-31] MEDS ORDERED: TAMS.4ER PO (16:24)
[2019-08-31] MEDS ORDERED: TRAZ50 PO (16:24)
[2019-08-31] MEDS ORDERED: Aspirin EC81 MG PO (16:24)
[2019-08-31] MEDS ORDERED: OXYC10TA19 PO (16:25)
[2019-08-31 16:45] LABS: Albumin, Blood 3.2 g/dL (3.4-5.0); Albumin/Globulin Ratio 0.9 (0.8-1.8); Bilirubin, Total 0.5 mg/dL (0.1-1.0); Bun/Creatinine Ratio 10.9 (12.0-20.0); Creatinine, Blood 2.2 mg/dL (0.60-1.20); Globulin, Blood 3.5 g/dL (2.2-4.0); Potassium, Blood 2.8 mmol/L (3.5-5.5); Total Protein, Blood 6.7 g/dL (6.4-8.2)
[2019-08-31 16:49] LABS: Influenza A Negative (NEGATIVE); Influenza B Negative (NEGATIVE)
[2019-08-31 16:59] LABS: BASOPHILS ABSOLUTE AUTO 0.01 K/mm3 (0.00-0.23); BASOPHILS PERCENT AUTO 0 % (0-2); EOSINOPHILS ABSOLUTE AUTO 0.17 K/mm3 (0.00-0.68); EOSINOPHILS PERCENT AUTO 3 % (0-6); Hematocrit 26.9 % (37.0-53.0); Hemoglobin 8.7 g/dL (13.5-17.5); IMMATURE GRAN ABSOLUTE AUTO 0.02 K/mm3 (0.00-0.10); IMMATURE GRAN PERCENT AUTO 0 % (0-1); LYMPHOCYTES ABSOLUTE AUTO 0.75 K/mm3 (0.84-5.20); LYMPHOCYTES PERCENT AUTO 12 % (21-46); MONOCYTES ABSOLUTE AUTO 0.97 K/mm3 (0.16-1.47); MONOCYTES PERCENT AUTO 15 % (4-13); Mean Corpuscular HGB 26.5 pg (26.0-34.0); Mean Corpuscular HGB Conc 32.3 g/dL (31.5-36.5); Mean Corpuscular Volume 82 fL (80-100); Mean Platelet Volume 9.8 fL (9.1-12.4); NEUTROPHILS ABSOLUTE AUTO 4.59 K/mm3 (1.96-9.15); NEUTROPHILS PERCENT AUTO 71 % (41-73); Platelet Count 225 K/mm3 (150-400); RDW Coefficient Variation 16.2 % (11.7-14.2); Red Blood Cell Count 3.28 M/mm3 (4.30-5.90); White Blood Cell Count 6.51 K/mm3 (4.00-11.30)
[2019-08-31 18:25] LABS: Source, Urine Clean Catch
[2019-08-31 18:37] LABS: Bilirubin, Urine Neg (Neg); Blood, Urine 2+ (Neg); Glucose Qualitative, Urine Neg (Neg); Ketones, Urine 1+ (Neg); Leukocyte Esterase, Urine Neg (Neg); Nitrite, Urine Neg (Neg); Protein, Urine 2+ (Neg); Specific Gravity, Urine 1.015 (1.003-1.022); Urobilinogen, Urine NORM (Normal)
[2019-08-31 18:45] LABS: Magnesium, Blood 1.8 mg/dL (1.6-2.4); Phosphorus, Blood 3.9 mg/dL (2.5-4.9)
[2019-08-31 18:54] LABS: Appearance, Urine Clear (Clear); Color, Urine Yellow (P-Yellow); White Blood Cells, Urine 0-2 /hpf (0-5)
[2019-08-31 18:55] LABS: Amorphous Mod (0-Heavy); Bacteria Mod /hpf; Mucus Heavy (0-Heavy); Squamous Epithelial Cells Few /hpf (Few)
--- NOTE | 2019-08-31 22:52 | NUR ---
Received pt in good condition from ED RN at 1925. Pt alert and oriented, but in pain. Aurelia Conrad APRN updated on pt status, d/c ng tube order. Pt passed swallow eval, no n+v. Diet updated. Pt oriented to room, brought to bedside afterwards. Pt states pain still 02/15, however pt is also dozing. O2 sat without NC is 92% when awake, snoring while asleep. Will reassess after pt wakes again. Call light close to hand, pt uses TV for distraction from pain while awake.
[2019-09-01 02:05] LABS: BASOPHILS ABSOLUTE AUTO 0.02 K/mm3 (0.00-0.23); BASOPHILS PERCENT AUTO 0 % (0-2); EOSINOPHILS PERCENT AUTO 4 % (0-6); Hematocrit 28.4 % (37.0-53.0); IMMATURE GRAN ABSOLUTE AUTO 0.03 K/mm3 (0.00-0.10); IMMATURE GRAN PERCENT AUTO 0 % (0-1); LYMPHOCYTES ABSOLUTE AUTO 1.29 K/mm3 (0.84-5.20); LYMPHOCYTES PERCENT AUTO 17 % (21-46); MONOCYTES ABSOLUTE AUTO 1.33 K/mm3 (0.16-1.47); MONOCYTES PERCENT AUTO 18 % (4-13); Mean Corpuscular HGB 26.5 pg (26.0-34.0); Mean Corpuscular HGB Conc 31.7 g/dL (31.5-36.5); Mean Corpuscular Volume 84 fL (80-100); Mean Platelet Volume 10.4 fL (9.1-12.4); NEUTROPHILS ABSOLUTE AUTO 4.65 K/mm3 (1.96-9.15); NEUTROPHILS PERCENT AUTO 61 % (41-73); Platelet Count 217 K/mm3 (150-400); RDW Coefficient Variation 16.6 % (11.7-14.2); RDW Standard Deviation 50.4 fL (35.1-46.3); Red Blood Cell Count 3.39 M/mm3 (4.30-5.90); White Blood Cell Count 7.62 K/mm3 (4.00-11.30)
[2019-09-01 02:22] LABS: Albumin, Blood 2.6 g/dL (3.4-5.0); Albumin/Globulin Ratio 0.9 (0.8-1.8); Bilirubin, Total 0.3 mg/dL (0.1-1.0); Bun/Creatinine Ratio 13.9 (12.0-20.0); Calcium, Blood 6.4 mg/dL (8.5-10.1); Creatinine, Blood 1.66 mg/dL (0.60-1.20); Potassium, Blood 3.2 mmol/L (3.5-5.5); Total Protein, Blood 5.6 g/dL (6.4-8.2)
--- NOTE | 2019-09-01 05:38 | NUR ---
Trialed pt off O2 again, pt tolerated for a few minutes, but due to pain and shallow breathing, unable to tolerate room air. Pt able to sleep deeply, arousable to touch/shake.
--- NOTE | 2019-09-01 10:17 | NUR ---
CARE ASSUMED ASSESSMENT COMPLETED. PT ALERT AND ORIENTED X4, APPROPRIATE AND COOPERATIVE. TEMP 99.3, OTHER VSS, PT NORMOTENSIVE. ABDOMEN TENDER TO PALPATION, PT HAD 1 MUCOUSY LIQUID STOOL, SPECIMEN SENT TO LAB. SURGICAL INCISION TO MID LOWER BACK OPEN TO AIR, NANCY INTACT, SLIGHT REDNESS AND MINIMAL SWELLING NOTED TO RIGHT UPPER SIDE OF INCISION, NO DRAINAGE OR FOUL ODOR NOTED. DR. MAN IN TO ASSESS, PT NOW MED STATUS NO TELE. PT MEDICATED FOR PAIN, ABX ADMINISTERED PER ORDERS.
--- NOTE | 2019-09-01 12:13 | NUR ---
PT HAS HAD MULTIPLE MUCOUS BM'S TODAY, PLAN TO INSERT RECTAL TUBE AFTER LUNCH. PT SITTING UP IN BED EATING AT THIS TIME, APPETITE GOOD, AT BEDSIDE. VS REMAIN STABLE, PT ALERT AND ORIENTED X4.
[2019-09-01 12:57] LABS: Adenovirus F 40/41 Not Detected (NOT DETECT); Astrovirus Not Detected (NOT DETECT); Campylobacter Sp Not Detected (NOT DETECT); Cryptosporidium Not Detected (NOT DETECT); Cyclospora Cayetanensis Not Detected (NOT DETECT); E. Coli O157 Not Detected (NOT DETECT); Entamoeba Histolytica Not Detected (NOT DETECT); Enteroaggregative E. coli-EAEC Not Detected (NOT DETECT); Enteropathogenic E. coli-EPEC Not Detected (NOT DETECT); Enterotoxigenic E. coli-ETEC Not Detected (NOT DETECT); Giardia Lamblia Not Detected (NOT DETECT); Norovirus GI/GII Not Detected (NOT DETECT); Plesiomonas Shigelloides Not Detected (NOT DETECT); Rotavirus A Not Detected (NOT DETECT); Salmonella Sp Not Detected (NOT DETECT); Sapovirus Not Detected (NOT DETECT); Shiga Toxin-prod E. coli-STEC Not Detected (NOT DETECT); Shigella/Enteroin E. coli-EIEC Not Detected (NOT DETECT); Vibrio Cholerae Not Detected (NOT DETECT); Vibrio Sp Not Detected (NOT DETECT); Yersinia Enterocolitica Not Detected (NOT DETECT)
--- NOTE | 2019-09-01 14:53 | NUR ---
PT CONTINUES TO HAVE LOOSE BM'S, RECTAL TUBE PLACED, IMMEDIATELY BEGAN LEAKING, STOOL IS SLIGHTLY MORE FORMED. RECTAL TUBE DC'D. PT WORKING IN BED WITH PHYSICAL THERAPY, PT INSTRUCTED TO HAVE FAMILY BRING IN BACK BRACE. PT COOPERATIVE WITH CARE, TOLERATING PO WELL, RESTING WITH EYES CLOSED AT THIS TIME. VS HAVE BEEN STABLE.
--- NOTE | 2019-09-01 16:52 | NUR ---
TRANSFER NOTE- PT TRANSFERED TO MEDICAL FLOOR FROM ICU2. PT ALERT AND ORIENTED 2P MAX ASSIST FOR TRANSFERS IN THE BED. PT USES THE BED MOORE FOR ALL STOOLS. PT C-DIFF POSSITIVE. THIS IS HIS SECOND BOUT OF C-DIFF IN THE PAST TWO MONTHS. PT HAD A SPINAL FUSION OF THE LOWER BACK ARROUND Aug. PT HAS ALOT OF PAIN A RESULT OF THE SURGERY.
--- NOTE | 2019-09-01 17:32 | NUR ---
1700: PT HAS BEEN SLEEPING SOUNDLY WITH NO C/O, NO ADDITIONAL DIARRHEA SINCE RECTAL TUBE REMOVED. VSS AT THIS TIME, PT NORMOTENSIVE, DENIES CHEST PAIN/SOB. REPORT CALLED TO HARDIK GREWAL. PT TO ROOM 338 WITH BELONGINGS, CHART, AND MEDS AT THIS TIME, TOLERATED TRANSFER WELL. FLAGYL CONTINUES TO INFUSE.
--- NOTE | 2019-09-01 18:09 | NUR ---
SHIFT SUMMARY- PT ARRIVED ON MEDICAL FLOOR AT 1700. HE IS IN BED CALL LIGHT IN REACH, CALLS APPROPRIATELY, IN ISO FOR C-DIFF. PT MEDICATED FOR PAIN AT AROUND 1730 WITH NO EFFECT AT THIS TIME WILL CTM. WILL PASS ON IN BEDSIDE REPORT THAT THE PT HAS OTHER PAIN MEDICATION ONCE THIS MED HAS HAD TIME TO BECOME EFFECTIVE.
[2019-09-02 05:03] LABS: Hematocrit 27.9 % (37.0-53.0); Hemoglobin 8.8 g/dL (13.5-17.5); Mean Corpuscular HGB 26.4 pg (26.0-34.0); Mean Corpuscular HGB Conc 31.5 g/dL (31.5-36.5); Mean Corpuscular Volume 84 fL (80-100); Mean Platelet Volume 10.3 fL (9.1-12.4); Platelet Count 228 K/mm3 (150-400); RDW Coefficient Variation 16.3 % (11.7-14.2); RDW Standard Deviation 49.7 fL (35.1-46.3); Red Blood Cell Count 3.33 M/mm3 (4.30-5.90); White Blood Cell Count 6.92 K/mm3 (4.00-11.30)
[2019-09-02 05:27] LABS: Bun/Creatinine Ratio 13.2 (12.0-20.0); Calcium, Blood 6.7 mg/dL (8.5-10.1); Creatinine, Blood 1.29 mg/dL (0.60-1.20); Magnesium, Blood 1.9 mg/dL (1.6-2.4)
--- NOTE | 2019-09-02 06:18 | NUR ---
SHIFT SUMMARY PATIENT ALERT AND ORIENTED OVERNIGHT. PLEASANT BUT EXPERIENCING HIGH LEVELS OF PAIN DUE TO HIS RECENT BACK SURGERY. JARQUIN IN PLACE AND DRAINING TO GRAVITY. BOTH IV'S PATENT AND FLUSHED. ON 2 LITERS O2 VIA NASAL CANULA. BED IN LOWEST POSITION WITH WHEELS LOCKED. CALL LIGHT AND BELONGINGS WITHIN REACH. REPORT GIVEN TO ONCOMING RN.
--- NOTE | 2019-09-02 16:59 | NUR ---
PT AOX3-4 DOES HAVE SOME CONFUSION AT TIMES. PT CONTINUE TO HAVE A LOT OF BACK PAIN RELATED TO BACK SURGERY. PT TREATED FOR PAIN PER EMAR. PT AT THIS TIME DOES NOT HAVE BACK BRACE IN ROOM AND HAS BEEN USING BED MOORE HE IS NOT TO GET UP WITHOUT BRACE ONE. PT CALLS APPROPRIATELY NO DISTRESS NOTE AT THIS TIME. WILL CONTINUE TO MONITOR.
[2019-09-03 05:50] LABS: BASOPHILS ABSOLUTE AUTO 0.01 K/mm3 (0.00-0.23); BASOPHILS PERCENT AUTO 0 % (0-2); EOSINOPHILS ABSOLUTE AUTO 0.18 K/mm3 (0.00-0.68); EOSINOPHILS PERCENT AUTO 4 % (0-6); Hematocrit 28.4 % (37.0-53.0); IMMATURE GRAN ABSOLUTE AUTO 0.03 K/mm3 (0.00-0.10); IMMATURE GRAN PERCENT AUTO 1 % (0-1); LYMPHOCYTES PERCENT AUTO 13 % (21-46); MONOCYTES ABSOLUTE AUTO 0.67 K/mm3 (0.16-1.47); MONOCYTES PERCENT AUTO 15 % (4-13); Mean Corpuscular HGB 26.1 pg (26.0-34.0); Mean Corpuscular HGB Conc 31.7 g/dL (31.5-36.5); Mean Corpuscular Volume 82 fL (80-100); Mean Platelet Volume 10.6 fL (9.1-12.4); NEUTROPHILS ABSOLUTE AUTO 2.98 K/mm3 (1.96-9.15); NEUTROPHILS PERCENT AUTO 67 % (41-73); Platelet Count 244 K/mm3 (150-400); RDW Coefficient Variation 16.1 % (11.7-14.2); RDW Standard Deviation 49.3 fL (35.1-46.3); Red Blood Cell Count 3.45 M/mm3 (4.30-5.90); White Blood Cell Count 4.47 K/mm3 (4.00-11.30)
[2019-09-03 06:09] LABS: Albumin, Blood 2.7 g/dL (3.4-5.0); Anion Gap 8 mmol/L (6-16); Blood Urea Nitrogen 11 mg/dL (8-24); Bun/Creatinine Ratio 10.1 (12.0-20.0); CO2, Blood 25 mmol/L (21-32); Calcium, Blood 6.8 mg/dL (8.5-10.1); Chloride, Blood 106 mmol/L (98-108); Creatinine, Blood 1.09 mg/dL (0.60-1.20); Glomerular Filtration Rate >60 (60-); Glucose, Blood 135 mg/dL (70-99); Phosphorus, Blood 2.2 mg/dL (2.5-4.9); Potassium, Blood 3.4 mmol/L (3.5-5.5); Sodium, Blood 139 mmol/L (136-145)
--- NOTE | 2019-09-03 07:37 | NUR ---
SHIFT SUMMARY PT WAS FOUND IN PAIN AT BEGINNING OF SHIFT. PT TX PER MAR WITH GOOD RELIEF. PT HAD SLEPT FOR MOST OF SHIFT. PT CONTINUES TO HAVE LOOSE WATERY STOOL. PT WAS FOUND WITH A TEMP AND INCREASED CONFUSION. PT TX WITH TYLENOL WITH CONFUSION AND TEMP RESOLVEING. PT CURRENTLY AWAKE AND HAVE SOME DISCOMFORT. CALL LIGHT IN REACH.
--- NOTE | 2019-09-03 19:50 | NUR ---
SHIFT SUMMARY: NO ACUTE CHANGES TO REPORT THIS SHIFT. PT A&O; CALM AND COOPERATIVE WITH CARE. BACK PAIN R/T LUMBAR FUSION 08/25; MEDICATED FOR PAIN PER EMAR; STRICT BEDREST c BACK BRACE IN PLACE; JARQUIN IN PLACE-PATENT & DRAINING. TELE ADDED THIS SHIFT; SINUS TACHYCARDIA; 2X HOME BLOOD PRESSURE MEDS ADDED THIS SHIFT. IV & PO ABX CONTINUING; INFECTIOUS DISEASE (DR CABALLERO) TO BE CONSULTED 09/04. REPORT GIVEN TO ONCOMING RN.
--- NOTE | 2019-09-04 02:03 | NUR ---
RAPID RESPONSE NOTE WENT INTO PT ROOM JUST BEFORE MIDNIGHT TO GIVE MEDS & PT STARTED PROJECTILE VOMITING, CALLED CHARGE NURSE & ASKED HER TO BRING ZOFRAN. CHECKED VS, BP 174/127, HR 113, RR 25, SPO2 @91% ON 2L, T 99.0. VEW SCORE 4. PT ALSO REPORTED 10/10 PAIN IN BACK & WAS SHOWING MANY NON-VERBAL SIGNS OF PAIN, THEREFORE AFTER ADMINISTERING ZOFRAN I GAVE 50MCG FENTANYL & 10MG ROXICODONE TO SEE IF BP & HR WERE INCREASED R/T PAIN. PT LOOKED REALLY SICK, ABD VERY DISTENDED, FIRM, TIGHT, PAINFUL TO PALPATION & PT WAS MORE DROWSY THEN BEGINNNING OF SHIT YET STILL AOX4. PT REPORTED HIS ABD WAS MORE SWOLLEN THEN USUAL. ASKED CHARGE NURSE TO CALL RAPID. DURING RAPID BP INCREASED TO 209/141, HR 108, T 100.2, SPO2 @89% ON 2L THEREFORE INCREASED O2 TO 4L & SPO2 @92%. PT HAD ANOTHER EPISODE OF EMESIS ONCE SENIOR BUSINESS ANALYST ARRIVED, BUT COULD NOT RECIEVE MORE ZOFRAN SINCE IT WAS JUST GIVEN [address] INGRAM ORDERED STAT CT, NPO & NG TUBE PLACEMENT. CT SHOWED BOWEL BLOCKAGE. PT WAS TRANSFERRED TO PCU PER ORDERS @0150, GAVE REPORT TO GARO MALONE RN. NOTIFIED PTS (NEREIDA) OF ROOM CHANGE @0200.
--- NOTE | 2019-09-04 03:25 | NUR ---
OBSTETRICS SCRUB NURSE- PT TO PCU 14 FROM ROOM 338 AT 0155. OBSTETRICS SCRUB NURSE CALLED AFTER PT HAD NEW ONSET VOMITING, INCREASING OXYGEN NEEDS, TACHYCARDIA, AND INCREASING ABDOMINAL PAIN. ON ARRIVAL TO PCU PT IS ACTIVELY VOMITING AND IS INCONTINENT OF EXTRA LARGE WATERY STOOL. NG HOOKED TO SUCTION AND PT STOPPED VOMITING. PT OPEN EYES TO VERBAL STIMULI BUT APPEARS VERY DROWSY, FAILS TO FOLLOW COMMANDS OR ANSWER QUESTIONS, AND FALLS BACK TO SLEEP QUICKLY. PT IS HYPERTENSIVE, TEMP 101.7, INCREASED RR. ABDOMEN IS SEVERELY DISTENDED, HYPOACTIVE BOWEL TONES, PAIN/GUARDING WITH PALPATION. PER CT RESULTS, POSSIBLE ILEUS. PT HAS SURGICAL INCISION MID LOWER BACK FOLLOWING RECENT LUMBAR FUSION AND EXPERIENCES SIGNIFICANT PAIN WITH REPOSITIONING AND CARE. 3 PEOPLE USED TO LOG ROLL AND REPOSITION. JARQUIN PATENT AND DRAINING CLOUDY YELLOW URINE. SEE FULL SHIFT ASSESSMENT
--- NOTE | 2019-09-04 04:00 | NUR ---
CALL PLACED TO HOSPITALIST REGARDING CONTINUED HYPERTENSION. ORDER FOR HYDRALAZINE PLACED.
[2019-09-04 04:27] LABS: BASOPHILS ABSOLUTE AUTO 0.01 K/mm3 (0.00-0.23); BASOPHILS PERCENT AUTO 0 % (0-2); EOSINOPHILS ABSOLUTE AUTO 0.02 K/mm3 (0.00-0.68); EOSINOPHILS PERCENT AUTO 0 % (0-6); Hemoglobin 9.6 g/dL (13.5-17.5); IMMATURE GRAN ABSOLUTE AUTO 0.04 K/mm3 (0.00-0.10); IMMATURE GRAN PERCENT AUTO 1 % (0-1); LYMPHOCYTES ABSOLUTE AUTO 0.31 K/mm3 (0.84-5.20); LYMPHOCYTES PERCENT AUTO 7 % (21-46); MONOCYTES ABSOLUTE AUTO 0.46 K/mm3 (0.16-1.47); MONOCYTES PERCENT AUTO 10 % (4-13); Mean Corpuscular Volume 81 fL (80-100); Mean Platelet Volume 10.5 fL (9.1-12.4); NEUTROPHILS ABSOLUTE AUTO 3.78 K/mm3 (1.96-9.15); NEUTROPHILS PERCENT AUTO 82 % (41-73); Platelet Count 235 K/mm3 (150-400); RDW Coefficient Variation 15.9 % (11.7-14.2); Red Blood Cell Count 3.69 M/mm3 (4.30-5.90); White Blood Cell Count 4.62 K/mm3 (4.00-11.30)
[2019-09-04 04:44] LABS: Albumin, Blood 2.7 g/dL (3.4-5.0); Anion Gap 7 mmol/L (6-16); Blood Urea Nitrogen 10 mg/dL (8-24); Bun/Creatinine Ratio 10.2 (12.0-20.0); CO2, Blood 28 mmol/L (21-32); Chloride, Blood 101 mmol/L (98-108); Creatinine, Blood 0.98 mg/dL (0.60-1.20); Glomerular Filtration Rate >60 (60-); Glucose, Blood 173 mg/dL (70-99); Magnesium, Blood 1.3 mg/dL (1.6-2.4); Phosphorus, Blood 1.5 mg/dL (2.5-4.9); Sodium, Blood 136 mmol/L (136-145)
--- NOTE | 2019-09-04 05:01 | NUR ---
DR. INGRAM AT BEDSIDE TO ASSESS PT. PT OPENS EYES TO VERBAL STIMULUS, FAILS TO VERBALLY RESPOND OR FOLLOW DIRECTIONS. ORDER FOR URGENT HEAD CT AND ABG.
--- NOTE | 2019-09-04 08:00 | NUR ---
ASSUMED CARE PT ALERT AND ORIENTED TO SELF, PLACE, AND FOLLOWING DIRECTIONS. VS STABLE. O2 SATS REMAIN ABOVE 90% ON 2L NC. BP STABLE. HR NSR. PT COMPLAINS OF 8/10 PAIN IN HIS BACK AND REFUSES REPOSITIONING AT TIMES DUE TO PAIN. PT YELLING OUT ABOUT HIS PAIN IN HIS BACK. ATTEMPTING TO COMFORT PATIENT AND TREAT PAIN. SURGICAL SITE TO LOWER BACK WITH NANCY OPEN TO AIR. PT HAVING LARGE SOFT BOWEL MOVEMENTS. PT VOMITTING THIS AM AND MEDICATED PER EMAR. NG TUBE TO LIS. SECOND SUCTION SET UP IN THE ROOM. BED ALARM ON. WILL CONTINUE TO MONITOR CLOSELY.
[2019-09-04 08:30] LABS: PCO2 Arterial 38.7 mmHg (35-45); PO2 Arterial 45.7 mmHg (80-100); pH Blood Arterial 7.48 (7.35-7.45)
--- NOTE | 2019-09-04 18:01 | NUR ---
SHIFT SUMMARY PT ALERT AND ORIENTED TO SELF, PLACE, AND FOLLOWING DIRECTIONS. VS STABLE. HR REMAINS NSR. BP STABLE. O2 SATS REMAIN ABOVE 90% ON 2L NC. PT COMPLAINS OF PAIN IN HIS BACK AND MEDICATED PER EMAR. PT REPOSITIONED NEEDED, BUT OFTEN REFUSES DUE TO PAIN. PT INCONTINENT OF BM THIS SHIFT. JARQUIN PATENT AND DRAINING CLEAR YELLOW URINE. NG TUBE TO LIS. ABD SEVERELY DISTENDED AND TENDER. PT NAUSEOUS THROUGH SHIFT AND MEDICATED PER EMAR. CALL LIGHT IN REACH AND BED ALARM ON. WILL CONTINUE TO MONITOR AND REPORT TO ONCOMING RN.
--- NOTE | 2019-09-04 19:20 | NUR ---
ASSUME CARE: BEDSIDE REPORT RECIEVED FROM BRIGETTE OFF GOING RN. MONITOR INTACT SHOWING SINUS RHYTHM. HEART RATE 70'S. LUNG SOUNDS CLEAR IN THE UPPER LOBES DECREASED IN THE LOWER. RESPIRATIONS REGULAR AND EASY AT REST. NGN TO9 LIS WITH YELLOW/GREEN RETURN. ABDOMEN FIRM ROUND WITH BOWEL SOUNDS FOUR QUADS. NANCY TO MID BACK DRY/INTACT. INCONTINENT OF STOOL LIQUID GREEN MODERATE AMT. JARQUIN PATENT DRAINING JASON URINE. ASSIST WITH REPOSIONING. PILLOWS PLACED UNDER EXTREMITIES FOR PATIENT COMFORT. CONTINUE TO MONITOR AND REPORT CHANGE IN PATIENT CONDITION.
[2019-09-05 05:49] LABS: BASOPHILS PERCENT AUTO 0 % (0-2); EOSINOPHILS ABSOLUTE AUTO 0.01 K/mm3 (0.00-0.68); EOSINOPHILS PERCENT AUTO 0 % (0-6); Hematocrit 28.8 % (37.0-53.0); Hemoglobin 9.4 g/dL (13.5-17.5); IMMATURE GRAN ABSOLUTE AUTO 0.08 K/mm3 (0.00-0.10); IMMATURE GRAN PERCENT AUTO 2 % (0-1); LYMPHOCYTES ABSOLUTE AUTO 0.88 K/mm3 (0.84-5.20); LYMPHOCYTES PERCENT AUTO 18 % (21-46); MONOCYTES ABSOLUTE AUTO 0.82 K/mm3 (0.16-1.47); MONOCYTES PERCENT AUTO 17 % (4-13); Mean Corpuscular HGB 26.2 pg (26.0-34.0); Mean Corpuscular HGB Conc 32.6 g/dL (31.5-36.5); Mean Corpuscular Volume 80 fL (80-100); Mean Platelet Volume 10.2 fL (9.1-12.4); NEUTROPHILS ABSOLUTE AUTO 2.98 K/mm3 (1.96-9.15); NEUTROPHILS PERCENT AUTO 63 % (41-73); Platelet Count 249 K/mm3 (150-400); RDW Standard Deviation 47.3 fL (35.1-46.3); Red Blood Cell Count 3.59 M/mm3 (4.30-5.90); White Blood Cell Count 4.77 K/mm3 (4.00-11.30)
[2019-09-05 06:01] LABS: Anion Gap 9 mmol/L (6-16); Blood Urea Nitrogen 12 mg/dL (8-24); Bun/Creatinine Ratio 13.8 (12.0-20.0); CO2, Blood 27 mmol/L (21-32); Calcium, Blood 6.5 mg/dL (8.5-10.1); Chloride, Blood 101 mmol/L (98-108); Creatinine, Blood 0.87 mg/dL (0.60-1.20); Glomerular Filtration Rate >60 (60-); Glucose, Blood 108 mg/dL (70-99); Potassium, Blood 2.9 mmol/L (3.5-5.5); Sodium, Blood 137 mmol/L (136-145)
--- NOTE | 2019-09-05 06:45 | NUR ---
SHIFT SUMMARY: DOZES AT INTERVALS DURING NOC. FREQ REQUEST FOR "NAUSEA MEDICINE AND PAIN MEDICINE" MEDICATED WITH ZOFRAN AND 50MCGS OF FENTAYNL IV SEE MAR FOR FREQUENCY AND TIMES. LUNG SOUNDS CLEAR UPPER LOBES WITH COARSE SOUNDS IN THE BASES RESPIRATIONS REGULAR AND EASY AT REST. CALLS OUT AND MOANS WITH DISCOMFORT UPON REPOSITIONING. ABDOMEN FIRM,ROUND, TENDER WITH HYPER ACTIVE BOWLE SOUNDS JARQUIN PATENT DRAINING JASON URINE. INCONTINENT OF LIQUID GREEN/BROWN STOOL.REPOSITION FREQ AT LEAST EVERY TWO HOURS FOR PT COMFORT. N\\G TO LIS WITH YELLOW/GREEN LIQUID RETURN. 100ML THIS SHIFT.EXTREMITIES ELEVATED ON PILLOWS FOR COMFORT. BARRIER CREME TO BOTTOM FOR PREVENTIVE SKIN CARE. BOTTOM RED. CONTINUE TO MONITOR AND REPORT CHANGE IN PATIENT CONDITION
--- NOTE | 2019-09-05 18:41 | NUR ---
SHIFT SUMMARY PT ALERT AND ORIENTED. VS STABLE. O2 SATS REMAIN ABOVE 90% ON 2L NC. PT HAVING SEVERE BACK PAIN THROUGHOUT SHIFT. MEDICATED PER EMAR AND REPOSITIONED REQUESTED BY PATIENT. ABD IS SEVERLY DISTENDED AND TENDER. JARQUIN PATENT AND DRAINING CLEAR YELLOW URINE. PT NPO. DISCUSSED WITH HOSPITALIST PO MEDICATIONS AND IF WE COULD SWITCH PERTINENT MEDICATIONS TO IV. CARDIAC MEDS HAVE NOT BEEN CHANGED TO IV. NS WITH KCL INFUSING PER ORDERS. ORAL VANCO GIVEN PER DR. CABALLERO AND ORDERS TO TURN OFF SUCTION FOR 20 MIN AFTER VANCO IS GIVEN TO LET IT ABSORB AND THEN RESUME SUCTION. WILL CONTINUE TO MONITOR AND REPORT TO ONCOMING RN. CALL LIGHT IN REACH.
--- NOTE | 2019-09-05 22:09 | NUR ---
LYING ON L SIDE, REPORT RECEIVED FROM DAY SHIFT, CALL LIGHT IN REACH, KCL INFUSING AT 125, NC 3L 02 96%, ABLE TO MOVE LEGS AND ARMS BUT WEAK, PULSES STRONG WITH GOOD PROFUSION, LS COURSE THROUGHOUT,ABDM TENDER WITH HYPO IN LOWER QUADRANTS, EYES PERRL, ORAL CARE PERFORMED, REPOSITIONED AND CLEANED, MAC DRAINING DARK GREEN FLUID, JARQUIN IN PLACE YELLOW CLEAR URINE, MEDICATED FOR HIGH BP, HELD ALL PO MEDICATION DURE TO NPO STATUS, MEDICATED FOR PAIN WITH SOME SUCCESS, WILL CONTINUE TO MONITOR AND TREAT
[2019-09-06 05:27] LABS: Hemoglobin 10.5 g/dL (13.5-17.5); Mean Corpuscular HGB 26.2 pg (26.0-34.0); Mean Corpuscular HGB Conc 32.8 g/dL (31.5-36.5); Mean Corpuscular Volume 80 fL (80-100); Platelet Count 302 K/mm3 (150-400); RDW Coefficient Variation 16.2 % (11.7-14.2); RDW Standard Deviation 47.5 fL (35.1-46.3); Red Blood Cell Count 4.01 M/mm3 (4.30-5.90); White Blood Cell Count 7.66 K/mm3 (4.00-11.30)
[2019-09-06 05:56] LABS: Anion Gap 10 mmol/L (6-16); Blood Urea Nitrogen 17 mg/dL (8-24); Bun/Creatinine Ratio 21.9 (12.0-20.0); CO2, Blood 25 mmol/L (21-32); Calcium, Blood 6.7 mg/dL (8.5-10.1); Chloride, Blood 100 mmol/L (98-108); Creatinine, Blood 0.78 mg/dL (0.60-1.20); Free Thyroxine 1.61 ng/dL (0.70-1.60); Glomerular Filtration Rate >60 (60-); Glucose, Blood 102 mg/dL (70-99); Potassium, Blood 3.4 mmol/L (3.5-5.5); Sodium, Blood 135 mmol/L (136-145)
[2019-09-06 05:59] LABS: Triiodothyronine, Free 1.72 pg/mL (2.18-3.98)
[2019-09-06 06:02] LABS: BAND PERCENT MAN 1 % (0-8); BASOPHILS PERCENT MAN 0 % (0-2); EOSINOPHILS PERCENT MAN 0 % (0-6); LYMPHOCYTES ABSOLUTE MAN 0.76 K/mm3 (0.84-5.20); LYMPHOCYTES PERCENT MAN 10 % (21-46); METAMYELOCYTE ABSOLUTE MAN 0.15 K/mm3 (0.00-0.00); METAMYELOCYTE PERCENT MAN 2 % (0-0); MONOCYTES ABSOLUTE MAN 0.76 K/mm3 (0.16-1.47); MONOCYTES PERCENT MAN 10 % (4-13); MYELOCYTE ABSOLUTE MAN 0.15 K/mm3 (0.00-0.00); MYELOCYTE PERCENT MAN 2 % (0-0); NEUTROPHILS ABSOLUTE MAN 5.82 K/mm3 (1.96-9.15); SEG NEUTROPHILS PERCENT MAN 75 % (41-73); TOTAL CELLS COUNTED 100
--- NOTE | 2019-09-06 07:37 | NUR ---
A+O TALKING IN FULL SENTENCES, a+o, received nausea and pain medication as offten as allowed by bertram díaz bath given by staff, medicated for high bp successfully, call light in reach, bed in low position, 2L via nc
--- NOTE | 2019-09-06 08:00 | NUR ---
pt laying in bed awake nausiated, a/ox3, seems fatigued, lungs are clear dim in bases, 2 liters 02 via n/c, resp even and unlabored, no cough noted, hrirr, tele in place running afib per monitor, see strip, no edema noted, ppp+2, cap refill <3 sec, iv sites to r and l fa's, sites are clear and patent, infusing ns with potassium in left arm, btx4, abd round semi firm, tender, magallanes draining clear yellow urine, ng tube draining clear,to lis, bright yellow material, is npo at this time, skin c/w/d, kenny davis, call light in reach.
--- NOTE | 2019-09-06 12:16 | NUR ---
pt still having some nausia, but doing ok, he reports the dilaudid I gave him earlier helped a lot. reports a h/a, gave him a cool washcloth for his f/h. call light in reach.
--- NOTE | 2019-09-06 16:08 | NUR ---
Spiritual care visit conducted. Patient is lying in bed and alert. Patient immediately shares that he is not doing well and that he is not [employer] Witness and he does not attend [employer] but believes in God. Patient tells me about how emotionally he is a roller coaster as he tries to deal with the pain. He then tells me that he is wiped out and needs to rest and I ask if I could prayer for him. Patient agrees that prayer would be ok. I gladly provide prayer. Patient states that he would be good with me visiting tomorrow. I will continue to remain available to patient and family.
--- NOTE | 2019-09-06 18:21 | NUR ---
pt has had a rough day this am, but was able to relax this afternoon, has recieved 3 doses of zofran, he reports he is feeling like he is improving. no further changes this shift. call light in reach.
--- NOTE | 2019-09-07 04:03 | NUR ---
SHIFT SUMMARY A/O, ABLE TO MAKE NEEDS KNOWN. COOPERATIVE WITH CARE. CALLS AND ANSWERS QUESTIONS APPROPRIATELY. C/O PAIN/DISCOMFORT WELL NAUSEA W/O EMESIS; MEDICATED PER EMAR. RESTED, BUT UNABLE TO SLEEP DURING THE NIGHT. NOTED X3 BM'S THIS SHIFT. NG REMAINS IN PALCE WITH SUCTION LOW INTERMITTENT. NOTED HTN, ALL OTHER VS WNL. RESPIRATIONS REMAIN EVEN WITH EQUAL RISE/FALL WITH SPO2 >90%. NO ACUTE CHANGES NOTED OVERNIGHT. BED IN LOWEST POSITION; ALARM ON. CALL LIGHT AND BELONGINGS WITHIN REACH. WCTM. REPORT TO ONCOMING RN.
[2019-09-07 04:31] LABS: BASOPHILS ABSOLUTE AUTO 0.02 K/mm3 (0.00-0.23); BASOPHILS PERCENT AUTO 0 % (0-2); EOSINOPHILS ABSOLUTE AUTO 0.03 K/mm3 (0.00-0.68); EOSINOPHILS PERCENT AUTO 0 % (0-6); Hematocrit 34.2 % (37.0-53.0); IMMATURE GRAN ABSOLUTE AUTO 0.25 K/mm3 (0.00-0.10); IMMATURE GRAN PERCENT AUTO 4 % (0-1); LYMPHOCYTES ABSOLUTE AUTO 1.26 K/mm3 (0.84-5.20); LYMPHOCYTES PERCENT AUTO 18 % (21-46); MONOCYTES ABSOLUTE AUTO 1.05 K/mm3 (0.16-1.47); MONOCYTES PERCENT AUTO 15 % (4-13); Mean Corpuscular HGB 25.8 pg (26.0-34.0); Mean Corpuscular HGB Conc 32.2 g/dL (31.5-36.5); Mean Corpuscular Volume 80 fL (80-100); Mean Platelet Volume 10.2 fL (9.1-12.4); NEUTROPHILS ABSOLUTE AUTO 4.45 K/mm3 (1.96-9.15); NEUTROPHILS PERCENT AUTO 63 % (41-73); Platelet Count 371 K/mm3 (150-400); RDW Coefficient Variation 16.4 % (11.7-14.2); RDW Standard Deviation 47.7 fL (35.1-46.3); Red Blood Cell Count 4.26 M/mm3 (4.30-5.90); White Blood Cell Count 7.06 K/mm3 (4.00-11.30)
[2019-09-07 04:52] LABS: Anion Gap 8 mmol/L (6-16); Blood Urea Nitrogen 19 mg/dL (8-24); Bun/Creatinine Ratio 21.7 (12.0-20.0); CO2, Blood 25 mmol/L (21-32); Calcium, Blood 6.8 mg/dL (8.5-10.1); Chloride, Blood 103 mmol/L (98-108); Creatinine, Blood 0.87 mg/dL (0.60-1.20); Glomerular Filtration Rate >60 (60-); Glucose, Blood 104 mg/dL (70-99); Magnesium, Blood 1.8 mg/dL (1.6-2.4); Potassium, Blood 3.7 mmol/L (3.5-5.5); Sodium, Blood 136 mmol/L (136-145)
--- NOTE | 2019-09-07 08:35 | NUR ---
the pt reports nausea and pain. NGT evacuated 200 cc green clear fluid per noc shift. Currently has hypoactive bowel tones, states passing liquid stool and gas. Monroy catheter in place, draining clear yellow urine. Pt was medicated for pain and repositioned on his right side with pillows positioned behind his back and under calves and between knees for comrfort.
--- NOTE | 2019-09-07 11:04 | NUR ---
Pt received phone call from his ; pt tells me that his is in the ER with "respiratory issues". STates that he needs to be disconnected from everything and his ailyn taken out so that he can go home and take care of the dog which his cannot take care of now that she is in hospital. Explained to the pt that in his condition he needs to be well before he is capable of taking care of the dog. He is making phone calls to family/friends to find someone who can care for the dog.
--- NOTE | 2019-09-07 12:30 | NUR ---
The pt spoke with his , who was on a stretcher in the hallway, as she was being admitted to room PCU 12 across the lowery from the patient.
--- NOTE | 2019-09-07 14:21 | NUR ---
Telephone report was given to Vanessa Koo. The pt voided before he was transferred up to room 330. He is requesting pain medication upon arrival. NGT to low intermittent suction; green brownish fluid being evacuated from tubing. NGT was secured with new stat lock device to his nose. IV fluids infusing per orders at this time. Pt has no other complaints or needs voiced. THAO Templeton at the bedside, assisting patient and verifying needs are met.
--- NOTE | 2019-09-07 19:55 | NUR ---
SHIFT SUMMARY- PT PAIN SEEMS TO BE WELL MANAGED BY THE IV DILAUDID. NG TUBE IN PLACE PATENT AND DRAINING TO LOW INTERMITTENT SUCTION, CURRENTLY CLAMPED POST PO ABX ADMINISTRATION. PASSED ON IN REPORT TO NIGHT RN THAT TUBE SHOULD BE RECONNECTED AT 2100. PT REQUESTED PAIN MEDICATION NIGHT HARDIK COMBS IS AWARE AND WILL MEDICATE PER EMAR. PT IS CONTINENT OF STOOL WHEN HE CALLS FOR ASSISTANCE THERE IS SOME URGENCY INVOLVED D/T C-DIFF. PT HAS A URINAL AT THE BEDSIDE THAT HE USES INDEPENDENTLY. PASSED ALL INFORMATION ALONG IN BEDSIDE REPORT TO NIGHT HARDIK COMBS.
--- NOTE | 2019-09-08 02:36 | NUR ---
09/07/191999 UPON ASSESSMENT, RN NOTICED THAT NG TUBE NASAL TAPE WAS OFF NOSE. RN RE-APPLIED TAPE AFTER PLACEMENT OF NG TUBE CONFIRMED. SAFETY PIN HOLDING NG TUBE TO GOWN IN PLACE. MEDICATED FOR NAUSEA AND PAIN PER MAR. ABDOMEN WITH VERY HYPOACTIVE BOWEL SOUNDS. PT DENIES PASSING ANY FLATUS OR STOOL TODAY. HOB ELEVATED.
[2019-09-08 05:32] LABS: Alanine Aminotransfer (ALT/SGP 16 U/L (12-78); Albumin, Blood 2.7 g/dL (3.4-5.0); Albumin/Globulin Ratio 0.9 (0.8-1.8); Alk Phos 69 U/L (50-136); Anion Gap 7 mmol/L (6-16); Aspartate Aminotrans (AST/SGOT 29 U/L (12-37); Bilirubin, Total 0.4 mg/dL (0.1-1.0); Blood Urea Nitrogen 20 mg/dL (8-24); CO2, Blood 24 mmol/L (21-32); Calcium, Blood 6.6 mg/dL (8.5-10.1); Chloride, Blood 106 mmol/L (98-108); Creatinine, Blood 0.91 mg/dL (0.60-1.20); Globulin, Blood 3.1 g/dL (2.2-4.0); Glomerular Filtration Rate >60 (60-); Glucose, Blood 105 mg/dL (70-99); Sodium, Blood 137 mmol/L (136-145); Total Protein, Blood 5.8 g/dL (6.4-8.2)
--- NOTE | 2019-09-08 07:47 | NUR ---
09/08/19 0610 NG TUBE DRAINAGE = 450 ML LIGHT GREEN LIQUIDS. MEDICATED FOR NAUSEA AND BACK INCISIONAL PAIN. VITALS STABLE. BP HIGH THIS AM AND WAS MEDICATED THIS AM WELL.
--- NOTE | 2019-09-08 15:59 | NUR ---
CALLED DR CHAUDHARY- PT BP ELEVATED TO 180/108. PT MEDICATED WITH IV PAIN MEDICATION AT THIS TIME. DR AWARE OF BP WILL RECHECK SHORTLY AND ADMINISTER PRN BP MEDS IF NEEDED.
--- NOTE | 2019-09-08 18:32 | NUR ---
SHIFT SUMMARY- PT ALERT AND ORIENTED. C/O SPINAL PAIN T/O THE SHIFT. PT IN ISOLATION FOR C-DIFF. PT USES THE URINAL INDEPENDENTLY IN THE BED. PT HAD AN ACCIDENT WITH THE URINAL THIS EVENING RESULTING IN A FULL BED CHANGE. PT BEING MEDICATED FOR PAIN AT THIS TIME. AFTER THE LINEN CHANGE HE ASKED FOR PAIN MEDICATION WHILE MOANING AND CRYING A LITTLE. PT NG TUBE IS CLAMPED AT THIS TIME PO VANCO WAS GIVENAT 1800. WILL UNCLAMP AT TIME OF REPORT TO NIGHT RN. PT HAS A BACK BRACE IN THE ROOM FOR WHEN HE WORKS WITH PHYSICAL THERAPY. PT DECLINED PHYSICAL THERAPY TODAY. PT NG TUBE NORMALLY CONNECTED TO LOW INTERMITTENT SUCTION. PT HAS HAD INTERMITTENT NAUSEA NOT REQUIRING MEDICATION T/O THE DAY.
--- NOTE | 2019-09-08 18:41 | NUR ---
ANIMAL THERAPIST PLACED A CALL TO THE NEURO SURGEON IN [place] TO DETERMINE WHEN THE PT NANCY SHOULD BE REMOVED. NO CALL BACK HAS BEEN RECIEVED. WILL PASS ON TO NIGHT RN THAT ANOTHER CALL SHOULD BE PLACED TOMORROW.
--- NOTE | 2019-09-09 04:31 | NUR ---
SHIFT SUMMARY: PATIENT STATES HE IS VERY LIGHT SENSETIVE AND [place]. PATIENT WRITHING AND YELLING OUT WHEN STAFF USED THE LANCET FOR A BLOOD SUGAR POC. PATIENT ASKING FOR PAIN MEDICATION EVERY 2 HOURS. VSS AT THIS TIME, BED LOW AND LOCKED, CALL LIGHT WITHIN REACH.
[2019-09-09 06:00] LABS: Anion Gap 8 mmol/L (6-16); Blood Urea Nitrogen 23 mg/dL (8-24); Bun/Creatinine Ratio 25.2 (12.0-20.0); CO2, Blood 23 mmol/L (21-32); Chloride, Blood 102 mmol/L (98-108); Creatinine, Blood 0.91 mg/dL (0.60-1.20); Glomerular Filtration Rate >60 (60-); Glucose, Blood 107 mg/dL (70-99); Magnesium, Blood 1.7 mg/dL (1.6-2.4); Potassium, Blood 3.7 mmol/L (3.5-5.5); Sodium, Blood 133 mmol/L (136-145); Triglycerides 64 mg/dL (30-160)
--- NOTE | 2019-09-09 16:10 | NUR ---
SHIFT SUMMARY NO ACUTE CHANGES. PATIENT HAS REQUESTED PRN PAIN MEDICATIONS Q2 THROUGHT THIS SHIFT. PATIENT COUNCILED ABOUT EFFECTS OF OPIATES ON GASTRIC MOTILITY. PATIENT DENEIS NAUSEA AND SHORTNESS OF BREATH. PATIENT HAS REFUSED TO GET OUT OF BED FOR PT OR FLOOR STAFF. PATIENT REPOSITIONED HE WILL ALLOW. PATIENT SAT ON EDGE OF BED WITH PT. NG TO LIS, DRAINING GREEN-BROWN LIQUID. CALL LIGHT IN REACH.
--- NOTE | 2019-09-10 01:32 | NUR ---
At shift commence pt was transferred to radiology for ultrasound of abd re ileus. Has been hooked up to intermittent low suction (per NG tube) and has received PO Vanco for C-Diff treatment - see MAR for details. Has also received Dilaudid 1 mg IV about every 2 hrs for back pain - see MAR for details. Call light in reach. Isolation precautions maintained. IV Cinimix infusing at 100 ml/hr as ordered - JCRn
[2019-09-10 06:03] LABS: Anion Gap 8 mmol/L (6-16); Blood Urea Nitrogen 27 mg/dL (8-24); Bun/Creatinine Ratio 27.2 (12.0-20.0); CO2, Blood 24 mmol/L (21-32); Calcium, Blood 7.2 mg/dL (8.5-10.1); Chloride, Blood 102 mmol/L (98-108); Creatinine, Blood 0.99 mg/dL (0.60-1.20); Glomerular Filtration Rate >60 (60-); Glucose, Blood 104 mg/dL (70-99); Magnesium, Blood 1.8 mg/dL (1.6-2.4); Phosphorus, Blood 4.6 mg/dL (2.5-4.9); Potassium, Blood 3.9 mmol/L (3.5-5.5); Sodium, Blood 134 mmol/L (136-145)
--- NOTE | 2019-09-10 17:09 | NUR ---
SHIFT SUMMARY PATIENT MEDICATED SEVERAL TIMES FOR PAIN. DENIES NAUSEA AND SHORTNESS OF BREATH. PATIENT WORKED WITH PT TODAY. PATIENT UP ONE ASSIST WITH FWW AND GAIT BELT. PATIENT UP IN CHAIR FOR ONE HOUR. PATIENT CAN HAVE NANCY REMOVED FROM BACK INCISION BUT DECLINED TO HAVE THEM REMOVED THIS AFTERNOON BECAUSE HE WAS TIRED. PATIENT TOLERATING CLEAR LIQUID DIET AT THIS TIME BUT HAS NOT HAD MUCH APPETITE. NG TUBE SUCTION CURRENTLY TURNED OFF. POSSIBLE NG DC IF PATIENT CONTINUES TO TOLERATE ADVANCING DIET. CALL CATHY GRANADOS.
--- NOTE | 2019-09-10 19:13 | NUR ---
NG DC'D NG TUBE DC'D WITHOUT DIFFICULTY.
--- NOTE | 2019-09-11 03:25 | NUR ---
hAS BEEN RESTING QUIETLY WITH FEW INTERRUTPTIONS SINCE HS. CLINIMIX CONTINUES TO INFUSE PER MD ORDERS AT 100 ML/HR. IV DILAUDID ADMINISTERED EARLIER, SEE MAR FOR DETAILS, NO COMPLAINTS VOICED AT THIS TIME. CALL LIGHT IN REACH.ISOLATION PRECAUTIONS MAINTAINED.
[2019-09-11 05:58] LABS: Anion Gap 7 mmol/L (6-16); Blood Urea Nitrogen 28 mg/dL (8-24); Bun/Creatinine Ratio 29.8 (12.0-20.0); CO2, Blood 25 mmol/L (21-32); Calcium, Blood 7.1 mg/dL (8.5-10.1); Chloride, Blood 103 mmol/L (98-108); Creatinine, Blood 0.94 mg/dL (0.60-1.20); Glomerular Filtration Rate >60 (60-); Glucose, Blood 99 mg/dL (70-99); Magnesium, Blood 1.9 mg/dL (1.6-2.4); Phosphorus, Blood 3.8 mg/dL (2.5-4.9); Potassium, Blood 4.2 mmol/L (3.5-5.5); Sodium, Blood 135 mmol/L (136-145)
--- NOTE | 2019-09-11 18:16 | NUR ---
ALERT. ORIENTED. MEDICATED T/O DAY FOR BACK PAIN. TOLERATING ADVANCED DIET. UNLABORED RESPIRATIONS. HAS DECLINED TO GET UP TODAY. CLINBRENX April'Aleida. .TM
--- NOTE | 2019-09-12 02:14 | NUR ---
HAS BEEN RESTING QUIETLY WITH FEW INTERRUPTIONS THIS SHIFT. VOIDING -USING URINAL. REMAINS ON C-DIFF PRECAUTIONS. TOLERATING SOFT DIET. HOB ELEVATED. RECEIVED ANALGESICS FOR BACK PAIN - SEE MAR FOR DETAILS. CALL LIGHT IN REACH.
[2019-09-12 06:14] LABS: Albumin, Blood 2.5 g/dL (3.4-5.0); Anion Gap 6 mmol/L (6-16); Blood Urea Nitrogen 28 mg/dL (8-24); Bun/Creatinine Ratio 24.1 (12.0-20.0); CO2, Blood 25 mmol/L (21-32); Chloride, Blood 108 mmol/L (98-108); Creatinine, Blood 1.16 mg/dL (0.60-1.20); Glomerular Filtration Rate >60 (60-); Glucose, Blood 83 mg/dL (70-99); Phosphorus, Blood 3.6 mg/dL (2.5-4.9); Potassium, Blood 4.3 mmol/L (3.5-5.5); Sodium, Blood 139 mmol/L (136-145)
--- NOTE | 2019-09-12 16:21 | NUR ---
THERE WAS SOME CONCERN TO WHERE PATIENTS BACK BRACE IS. BACK BRACE IS IN PATIENT ROOM AT THIS TIME AND PATIENT IS AWARE, P.T. IS AWARE FOR WHEN PATIENT IS MOBILIZED AND IS AWARE.
--- NOTE | 2019-09-13 04:08 | NUR ---
HAS BEEN RESTING QUIETLY WITH FEW INTERRUPTIONS SINCE HS. WAS AWAKENED FOR INCONT CHANGE X 2 [id number]. RECEIVED PAIN MEDS - SEE MAR FOR DETAILS. CONTACT PRECAUTIONS MAINTAINED. CALL LIGHT IN REACH.
[2019-09-13 09:22] LABS: Albumin, Blood 2.8 g/dL (3.4-5.0); Anion Gap 7 mmol/L (6-16); Blood Urea Nitrogen 20 mg/dL (8-24); Bun/Creatinine Ratio 19.2 (12.0-20.0); CO2, Blood 25 mmol/L (21-32); Calcium, Blood 7.3 mg/dL (8.5-10.1); Chloride, Blood 107 mmol/L (98-108); Creatinine, Blood 1.04 mg/dL (0.60-1.20); Glomerular Filtration Rate >60 (60-); Glucose, Blood 94 mg/dL (70-99); Phosphorus, Blood 3.5 mg/dL (2.5-4.9); Sodium, Blood 139 mmol/L (136-145)
--- NOTE | 2019-09-13 18:06 | NUR ---
No acute changes noted. Patient has constant chronic back pain that is reported as a 10/10 even with prn medications on board. Patient continues to have loose stools this shift. Patient worked with PT on getting up to the bedside commode. No other issues noted at this time. Will continue to monitor for changes.
--- NOTE | 2019-09-14 04:23 | NUR ---
DISTRIBUTION CENTER SUPERVISOR SUMMARY Patient slept intermittantly waking to use commode or urinal. Hardeep had two liquid stools overnight. It was reiterrated to patient that it was important for him to call for staff assist to BSC to use commode. Explained Patient that his complaints of being tender around his rectum were from the cdiff stools in his briefs. Patient agreed and did well with commode (with assist) after that. Bowel tones hypoactive, no nausea. Lungs clear but dim, AP regular to auscultation. Marcelina in back out today.
[2019-09-14 09:03] LABS: Albumin, Blood 2.7 g/dL (3.4-5.0); Anion Gap 6 mmol/L (6-16); Blood Urea Nitrogen 16 mg/dL (8-24); CO2, Blood 27 mmol/L (21-32); Calcium, Blood 7.8 mg/dL (8.5-10.1); Chloride, Blood 106 mmol/L (98-108); Creatinine, Blood 1.07 mg/dL (0.60-1.20); Glomerular Filtration Rate >60 (60-); Glucose, Blood 88 mg/dL (70-99); Phosphorus, Blood 3.4 mg/dL (2.5-4.9); Potassium, Blood 3.9 mmol/L (3.5-5.5); Sodium, Blood 139 mmol/L (136-145)
--- NOTE | 2019-09-14 17:55 | NUR ---
SUMMARY PT IS A/O X4, PLEASANT AFFECT, UP w SBA TO CHAIR/BSC. DX C-DIFF COLITIS, ORAL VANCO/ORDER CONTINUES. HE HAS HAD 2-3 LOO[address] STO[address]S THIS SHIFT. DR WOODWARD PT MAY TRANSFER TO SNF FOR CONTINUING REHAB D/T RECENT SPINAL FUSION SURG ONCE STOOLS ARE FORMED. AIRPLANE ENGINEER STATE WE WILL START BANATROL TONITE TO BULK STOOLS. BACK SURG SITE w STERISTRIPS IN PLACE, NO S/S INFECTION. VSS.
--- NOTE | 2019-09-14 19:30 | NUR ---
SOTO IS SITTING IN BED, STATES SHE CONTINUES TO HAVE BROWN LOOSE STOOLS. HE HAS A FEW TODAY. ABDOMIN WITH HYPERACTIVE BOWELS, MILD TENDERNESS. STATES HIS BUTTOCKS IS ALSO SORE, ENCOURAGED HIM TO GET UP AND MOVE SOME. REPORTS PAIN WITH MOVMENT AND DOES NOT LIKE TO GET UP DUE TO THIS. DISCUSSED REHABILITATION AFTER BACK SURGERY AND HOW IT HELPS TO PREVENT PAIN AND STIFFNESS. REQUESTED MEDICATIONS FOR PAIN. WILL PULL WITH NIGHT MEDS. NUMBNESS TO BLE STATES IS HIS NORM. LUNG SOUNDS DIMINISHED, COUGH MILD AND NONPRODUCTIVE. CALL LIGHT IN REACH, WILL CONTINUE TO MONITOR.
--- NOTE | 2019-09-15 04:43 | NUR ---
SHIFT SUMMARY: SOTO HAD A GOOD NIGHT. PAIN HAS BEEN CONTROLLED WITH CURRENT TREATMENT. HE CALLED IT AN EARLY NIGHT TAKING HIS MEDICATIONS AND GOING TO SLEEP. WOKE UP ONCE TO USE THE BATHROOM AND ASKED FOR A SNACK THEN FELL BACK TO SLEEP. HE HAD NO LOOSE STOOLS THIS SHIFT. CALL LIGHT REMAINED IN REACH AND USED APPROPRIATLY. NO ACUTE CHANGES TO REPORT.
[2019-09-15 05:48] LABS: Albumin, Blood 2.6 g/dL (3.4-5.0); Anion Gap 5 mmol/L (6-16); Blood Urea Nitrogen 14 mg/dL (8-24); Bun/Creatinine Ratio 12.5 (12.0-20.0); CO2, Blood 28 mmol/L (21-32); Calcium, Blood 7.5 mg/dL (8.5-10.1); Chloride, Blood 104 mmol/L (98-108); Creatinine, Blood 1.12 mg/dL (0.60-1.20); Glomerular Filtration Rate >60 (60-); Glucose, Blood 93 mg/dL (70-99); Phosphorus, Blood 3.4 mg/dL (2.5-4.9); Potassium, Blood 3.7 mmol/L (3.5-5.5); Sodium, Blood 137 mmol/L (136-145)
--- NOTE | 2019-09-15 17:15 | NUR ---
SUMMARY PT HAD LARGE LOOSE BM THIS AM, DIARRHEA HOWEVER NOT WATERY. RN D/C DOUGH MAKER & VOCATIONAL HORTICULTURE INSTRUCTOR STATE PT MUST BE 48HR W/O DIARRHEA BEFORE HE WILL BE ACCEPTED TO SNF REHAB. PT WAS STARTED ON BANATROL YESTERDAY, DR CARROLL ADD QUESTRAN TODAY. PT HAS NOT HAD ANY FURTHER BM'S OR DIARRHEA TODAY, VOCATIONAL HORTICULTURE INSTRUCTOR NOTIFIED THIS AFTERNOON. DX C-DIFF, DR CARROLL DECREASE ORAL VANCO DOSE TODAY. SPINAL FUSION SITE W/O S/S INFECTION. PT CONTINUES TO STATE BACK PAIN. DR CARROLL CHANGE TO SCHEDULED MORPHINE 30MG PO Q8HRS, HAVE GIVEN TYLENOL X1. PT IS UP TO CHAIR/BSC SBA, ENCOURAGED TO LOG ROLL TO GET IN&OUT OF BED. HE IS GENERALLY PLEASANT, A/O X4. VSS.
--- NOTE | 2019-09-15 20:00 | NUR ---
SOTO WAS SLEEPING WHEN WALKED INTO THE ROOM. HE WAS EASILY AWAKENED. STATES HIS PAIN IS BETTER. HAD SOME ENCOURAGED SAYINGS ABOUT HIS MOBILITY, AND THOUGHTS OF GETTING UP AND MOVING MORE. HOPES HIS STOOLS CONTINUE TO THICKEN UP SO HE CAN GET BACK TO REHAB. MEDS ADMINISTERED. DENIES ANY NEEDS AT THIS TIME. WILL CONTINUE TO MONITOR.
--- NOTE | 2019-09-16 05:14 | NUR ---
SHIFT SUMMARY: SOTO HAS BEEN QUIET THIS SHIFT. SLEEPING MOST OF THE TIME. NO STOOLS NOTED THIS SHIFT. PAIN MANAGED WITH MS SAM STAYING AN AVERAGE 6/. VS HAVE BEEN STABLE. MEDS ADMINISTERED PER EMAR. NO OTHER ACUTE CHANGES TO REPORT.
--- NOTE | 2019-09-16 17:11 | NUR ---
PT AOX4 AND COOPERATIVE OF CARE. PT CONTINUES TO BE TREATED FOR BACK PAIN PER EMAR. PT HAS BM TODAY THE CONSISTANCY WAS SOFT PUDDING LIKE AND BROWN IN COLOR. PT UP IN CHAIR FOR SOME OF THE DAY. CALLS APPROPRIATELY WILL CONTINUE TO MONITOR.
--- NOTE | 2019-09-17 03:11 | NUR ---
SHIFT SUMMARY PATIENT HAD NO ACUTE CHANGES OBSERVED. AXOX 3 AND ONE ASSIST TO BSC. PIV REMAINS INTACT AND ON ROOM AIR. ORAL VANCO GIVEN PER EMAR AND SCHEDULE MS CONTIN FOR BACK PAIN. VSS/AFEBRILE. DENIES SOB AND N/V. COOPERATIVE WITH CARE. CALL LIGHT IN REACH. BED IN LOWEST POSITION. WILL CONTINUE TO MONITOR UNTIL DAY SHIFT NURSE ASSUMES CARE.
[2019-09-17 06:19] LABS: Anion Gap 4 mmol/L (6-16); Blood Urea Nitrogen 11 mg/dL (8-24); CO2, Blood 27 mmol/L (21-32); Calcium, Blood 7.4 mg/dL (8.5-10.1); Chloride, Blood 107 mmol/L (98-108); Glomerular Filtration Rate >60 (60-); Glucose, Blood 91 mg/dL (70-99); Potassium, Blood 4.6 mmol/L (3.5-5.5); Sodium, Blood 138 mmol/L (136-145)
--- NOTE | 2019-09-17 19:25 | NUR ---
SHIFT SUMMARY: NO ACUTE CHANGES TO REPORT THIS SHIFT. PT A&O; CALM AND COOPERATIVE WITH CARE. MEDICATED FOR BACK PAIN PER EMAR c JUAN FRANCISCO MS CONTIN & PRN TYLENOL. PO ABX CONTINUING; PHYSICAL THERAPY FOLLOWING. REPORT GIVEN TO ONCOMING RN.
--- NOTE | 2019-09-18 03:03 | NUR ---
SHIFT SUMMARY PATIENT HAD NO ACUTE CHANGES OBSERVED THIS SHIFT. AXOX 3 AND ONE ASSIST TO BSC. SCHEDULE MS CONTIN PER EMAR FOR BACK PAIN. USING TYLENOL INBETWEEN SCHEDULED MS CONTIN. PIV REMAINS INTACT. DENIES SOB AND N/V. ORAL VANCO GIVEN PER EMAR. VSS/AFEBRILE. COOPERATIVE WITH CARE. CALL LIGHT IN REACH. BED IN LOWEST POSITION. WILL CONTINUE TO MONITOR UNTIL DAY SHIFT NURSE ASSUMES CARE.
[2019-09-18] MEDS ORDERED: METO50 PO (10:01)
[2019-09-18] MEDS ORDERED: TUMS500 MG PO (10:03)
[2019-09-18] MEDS ORDERED: CHOLP PO (10:04)
[2019-09-18] MEDS ORDERED: Vsl#3 Capsule1 EACH PO (10:05)
[2019-09-18] MEDS ORDERED: XARELTO20 MG PO (10:05)
[2019-09-18] MEDS ORDERED: VANCOCIN HCL125 MG PO (10:06)
--- NOTE | 2019-09-18 11:05 | NUR ---
PT DCD TO [facility]. REPORT CALLED TO JAZMINE MAN. PACKET SENT WITH SYNCHRONIZER. ALL PERSONAL BELONGINGS SENT WITH PT. IV REMOVED WITH NO ISSUE. PT STABLE UPON DC.
== END 2019-09-18 10:49 | DRG 871 ==
LOC: ER 15:12 → MEDS 19:26 → ICUE 19:26 → ICUW 19:26 → PCU 19:26 → ICUE 19:29 → MEDS 09-01 16:52 → PCU 09-04 01:50 → MEDS 09-07 14:10 → ENPENDDIS 09-18 10:28 → MEDS 09-18 10:49
PROVIDERS: Internal Medicine; Nurse Practitioner Acute Care; Physician Assistant; ADMIT Internal Medicine
DX: A41.4 Sepsis due to anaerobes (principal); R65.21 Severe sepsis with septic shock; G93.41 Metabolic encephalopathy; R57.1 Hypovolemic shock; N17.9 Acute kidney failure, unspecified; F33.8 Other recurrent depressive disorders; A04.72 Enterocolitis due to Clostridium difficile, not specified as recurrent; E83.39 Other disorders of phosphorus metabolism; E83.42 Hypomagnesemia; E83.51 Hypocalcemia; G47.33 Obstructive sleep apnea (adult) (pediatric); N40.0 Benign prostatic hyperplasia without lower urinary tract symptoms; R53.81 Other malaise; D63.8 Anemia in other chronic diseases classified elsewhere; J44.9 Chronic obstructive pulmonary disease, unspecified; Z86.73 Personal history of transient ischemic attack (TIA), and cerebral infarction without residual deficits; E86.0 Dehydration; Z99.81 Dependence on supplemental oxygen; I12.9 Hypertensive chronic kidney disease with stage 1 through stage 4 chronic kidney disease, or unspecified chronic kidney disease; N18.3 Chronic kidney disease, stage 3 (moderate)
CPT/HCPCS: 0097U; 36415; 36600; 51702; 70450; 71045; 74018; 74176; 80048; 80053; 80069; 81001; 82272; 82306; 82330; 82728; 82803; 82947; 83540; 83550; 83605; 83690; 83735; 83880; 83970; 84100; 84439; 84443; 84478; 84481; 84484; 85025; 85027; 86850; 86900; 86901; 87040; 87086; 87324; 87804; 93005; 93010; 94640; 94760; 94762; 96361-59; 96365-59; 96367-59; 96368; 96375-59; 97110; 97116; 97163; 97530; 99285-25; A9270; C9113; J0360; J0610; J0696; J0744; J1170; J1650; J2310; J2405; J3010; J3243; J3475; J3480; J7030; J7050; J7060

== ENCOUNTER 2019-10-23 17:35 | Inpatient (IN) | payer OTHER ==
[~2019-10-23] VITALS: Ht 180.3 cm; Wt 90.0 kg
[~2019-10-23 17:35] MED LIST changes: +Aspirin EC81 MG PO; +BACL10 PO; +BUDE6HFA INH; +CHOLP PO; +Cymbalta20 MG PO; +FAMO20 PO; +GABA800 PO; +METO50 PO; +OXYC10TA19 PO; +TAMS.4ER PO; +TRAZ50 PO; +TUMS500 MG PO; +VANCOCIN HCL125 MG PO; +XARELTO20 MG PO; +ZOCOR20 MG PO
[2019-10-23] MEDS ORDERED: AMLO5 PO (17:43)
[2019-10-23] MEDS ORDERED: BACL10 PO (17:44)
[2019-10-23] MEDS ORDERED: FURO20 PO (17:44)
[2019-10-23] MEDS ORDERED: METO50ER PO (17:44)
[2019-10-23] MEDS ORDERED: Cymbalta20 MG PT (17:45)
[2019-10-23] MEDS ORDERED: Prozac20 MG PO (17:45)
[2019-10-23] MEDS ORDERED: LISI20 PO (17:45)
[2019-10-23] MEDS ORDERED: GABA800 PO (17:46)
[2019-10-23] MEDS ORDERED: BACL20 PO (17:46)
[2019-10-23] MEDS ORDERED: ZOCOR20 MG PO (17:46)
[2019-10-23] MEDS ORDERED: XARELTO20 MG PO (17:48)
[2019-10-23 18:13] LABS: BASOPHILS ABSOLUTE AUTO 0.01 K/mm3 (0.00-0.23); BASOPHILS PERCENT AUTO 0 % (0-2); EOSINOPHILS ABSOLUTE AUTO 0.16 K/mm3 (0.00-0.68); EOSINOPHILS PERCENT AUTO 2 % (0-6); Hematocrit 34.9 % (37.0-53.0); Hemoglobin 11.4 g/dL (13.5-17.5); IMMATURE GRAN ABSOLUTE AUTO 0.02 K/mm3 (0.00-0.10); IMMATURE GRAN PERCENT AUTO 0 % (0-1); LYMPHOCYTES ABSOLUTE AUTO 1.82 K/mm3 (0.84-5.20); LYMPHOCYTES PERCENT AUTO 20 % (21-46); MONOCYTES ABSOLUTE AUTO 0.97 K/mm3 (0.16-1.47); MONOCYTES PERCENT AUTO 11 % (4-13); Mean Corpuscular HGB 26.5 pg (26.0-34.0); Mean Corpuscular HGB Conc 32.7 g/dL (31.5-36.5); Mean Corpuscular Volume 81 fL (80-100); Mean Platelet Volume 9.5 fL (9.1-12.4); NEUTROPHILS ABSOLUTE AUTO 6.09 K/mm3 (1.96-9.15); NEUTROPHILS PERCENT AUTO 67 % (41-73); Platelet Count 257 K/mm3 (150-400); RDW Standard Deviation 53.1 fL (35.1-46.3); White Blood Cell Count 9.07 K/mm3 (4.00-11.30)
[2019-10-23 18:28] LABS: Albumin, Blood 3.7 g/dL (3.4-5.0); Bilirubin, Total 0.5 mg/dL (0.1-1.0); Bun/Creatinine Ratio 19.5 (12.0-20.0); Calcium, Blood 7.3 mg/dL (8.5-10.1); Creatinine, Blood 1.28 mg/dL (0.60-1.20); Globulin, Blood 3.6 g/dL (2.2-4.0); International Normalized Ratio 1.06; Magnesium, Blood 1.7 mg/dL (1.6-2.4); Potassium, Blood 2.6 mmol/L (3.5-5.5); Prothrombin Time Results 11.3 Sec (9.7-11.5); Total Protein, Blood 7.3 g/dL (6.4-8.2)
[2019-10-23 19:22] LABS: Source, Urine Clean Catch
[2019-10-23 19:27] LABS: Bilirubin, Urine Neg (Neg); Blood, Urine Neg (Neg); Glucose Qualitative, Urine Neg (Neg); Ketones, Urine Neg (Neg); Leukocyte Esterase, Urine Neg (Neg); Nitrite, Urine Neg (Neg); Protein, Urine Neg (Neg); Urobilinogen, Urine NORM (Normal)
[2019-10-23 19:30] LABS: Appearance, Urine Clear (Clear); Color, Urine Yellow (P-Yellow)
--- NOTE | 2019-10-24 04:10 | NUR ---
PT DRY HEAVING, NURSE NOTIFIED
--- NOTE | 2019-10-24 04:25 | NUR ---
PHYSICIAN COMMUNICATION CONTACTED DIE MAKER BENCH STAMPING PHYSICIAN, DR INGRAM, TO ASK FOR ADDITIONAL MEDICATION TO HELP WITH THE PATIENT'S NAUSEA. HE ORDERED REGLAN 10MG IV Q6HR.
--- NOTE | 2019-10-24 06:03 | NUR ---
PT HAD ONE INCONTINENT STOOL IN ATTENDS, ONE EXTRA LARGE STOOL IN BEDSIDE COMMODE
--- NOTE | 2019-10-24 06:17 | NUR ---
SHIFT SUMMARY PATIENT ALERT AND ORIENTED. HAS BEEN HAVING NAUSEA AND DRY HEAVING WITH PAIN IN HIS BACK AT 8/10. PATIENT MEDICATED PER EMAR FOR PAIN AND NAUSEA. TELE IN PLACE. PATIENT IS ABLE TO GET UP TO THE COMMODE WITH MINIMAL ASSISTANCE AND CALLS APPROPRIATELY WHEN HE NEEDS HELP. PATIENT HAD ONE LARGE LOOSE BOWEL MOVEMENT. IV IN LEFT HAND PATENT AND INFUSING WITH NORMAL SALINE AT 75 ML/HR. PATIENT ON ROOM AIR. BED IN LOWEST POSITION WITH WHEELS LOCKED. CALL LIGHT WITHIN REACH. REPORT GIVEN TO ONCOMING RN.
[2019-10-24 09:19] LABS: Hematocrit 33.6 % (37.0-53.0); Hemoglobin 10.8 g/dL (13.5-17.5); Mean Corpuscular HGB 26.3 pg (26.0-34.0); Mean Corpuscular HGB Conc 32.1 g/dL (31.5-36.5); Mean Corpuscular Volume 82 fL (80-100); Mean Platelet Volume 9.4 fL (9.1-12.4); Platelet Count 219 K/mm3 (150-400); RDW Standard Deviation 53.7 fL (35.1-46.3)
[2019-10-24 09:48] LABS: Alanine Aminotransfer (ALT/SGP 18 U/L (12-78); Albumin, Blood 3.3 g/dL (3.4-5.0); Alk Phos 100 U/L (50-136); Anion Gap 10 mmol/L (6-16); Aspartate Aminotrans (AST/SGOT 15 U/L (12-37); Bilirubin, Total 0.6 mg/dL (0.1-1.0); Blood Urea Nitrogen 17 mg/dL (8-24); Bun/Creatinine Ratio 17.9 (12.0-20.0); CO2, Blood 27 mmol/L (21-32); Chloride, Blood 103 mmol/L (98-108); Creatinine, Blood 0.95 mg/dL (0.60-1.20); Globulin, Blood 3.2 g/dL (2.2-4.0); Glomerular Filtration Rate >60 (60-); Glucose, Blood 126 mg/dL (70-99); Potassium, Blood 2.8 mmol/L (3.5-5.5); Sodium, Blood 140 mmol/L (136-145); Total Protein, Blood 6.5 g/dL (6.4-8.2)
--- NOTE | 2019-10-24 19:12 | NUR ---
PT. LAYING IN BED, HAD SEVERAL LOOSE STOOLS TODAY. STOOL SENT TO R/O C-DIFF. PT IS COLONIZED BUT DOES NOT HAVE C-DIFF. PT. GETTING K-RIDERS FOR REPORT OF LOW KCL. PT. A&O AND USES CALL LIGHT APPROPRIATELY. 1 PERSON ASSIST TO BSC.
--- NOTE | 2019-10-25 03:48 | NUR ---
BIOINFORMATICS SPECIALIST REPORT PT A/P X4. SLEPT OFF AND ON TONIGHT. PT WAS NAUSEOUS AND HAS CHRONIC BACK PAIN. MEDICATED FOR PAIN AND NAUSEA PER EMAR. PT HAD 250 ML EMESIS OUTPUT. WARM WASH CLOTH APPLIED TO FOREHEAD. VSS. NO ACUTE CHANGES. WILL CONTINUE TO MONITOR.
[2019-10-25 09:39] LABS: Anion Gap 8 mmol/L (6-16); Blood Urea Nitrogen 13 mg/dL (8-24); Bun/Creatinine Ratio 14.7 (12.0-20.0); CO2, Blood 28 mmol/L (21-32); Calcium, Blood 7.4 mg/dL (8.5-10.1); Chloride, Blood 105 mmol/L (98-108); Creatinine, Blood 0.88 mg/dL (0.60-1.20); Glomerular Filtration Rate >60 (60-); Glucose, Blood 115 mg/dL (70-99); Potassium, Blood 2.8 mmol/L (3.5-5.5); Sodium, Blood 141 mmol/L (136-145)
[2019-10-25] MEDS ORDERED: ASPIR 8181 M1 PO (15:24)
[2019-10-25] MEDS ORDERED: TUMS500 MG PO (15:28)
[2019-10-25] MEDS ORDERED: TAMS.4ER PO (15:29)
[2019-10-25] MEDS ORDERED: MORP15ER PO (15:34)
[2019-10-25] MEDS ORDERED: BUDE6HFA INH (15:37)
[2019-10-25] MEDS ORDERED: NITR.4SL SL (15:37)
[2019-10-25] MEDS ORDERED: ACET500 PO (15:38)
[2019-10-25] MEDS ORDERED: TRAZ100 PO (15:38)
[2019-10-25] MEDS ORDERED: VANCOMYCIN50 MG/1 ML PO (15:42)
[2019-10-25] MEDS ORDERED: Vsl#3 Capsule1 EACH PO (15:45)
--- NOTE | 2019-10-25 19:05 | NUR ---
PT. LYING BED PHENERGAN GIVEN FOR REPORT OF NAUSEA AND WRETCHING. 12,5 OF PHERGAN WAS GIVEN. STARTED NS AT 200 ML/HR BUT PT. UNABLE TO BEAR THE PAIN RELATED TO THE 22 GA. HE HAS IN HIS LEFT HAND. HAD TO LOWER THE RATE TO 100 ML/HR. KCL RIDERS COMPLETE, NOTED POTASSIUM NOW AT 3.6
[2019-10-25 19:17] LABS: Anion Gap 9 mmol/L (6-16); Blood Urea Nitrogen 15 mg/dL (8-24); Bun/Creatinine Ratio 19.4 (12.0-20.0); CO2, Blood 23 mmol/L (21-32); Calcium, Blood 7.3 mg/dL (8.5-10.1); Chloride, Blood 108 mmol/L (98-108); Creatinine, Blood 0.77 mg/dL (0.60-1.20); Glomerular Filtration Rate >60 (60-); Glucose, Blood 124 mg/dL (70-99); Potassium, Blood 3.6 mmol/L (3.5-5.5); Sodium, Blood 140 mmol/L (136-145)
--- NOTE | 2019-10-26 04:18 | NUR ---
SHIFT SUMMARY PT HAS HAD NO ACUTE CHANGES THIS SHIFT, PT REPORTS NAUSEA T/O SHIFT, VOMITING PERIODICALLY SOMEWHAT CONTROLLED BY ANTIEMETICS, PT REFUSED ALL 2100 PO MEDS D/T NAUSEA, MEDICATED PER Oct PAIN, NO OTHER COMPLAINTS, BEDRESTING AT THIS TIME, CALL LIGHT IN REACH, WILL CONT TO MONITOR UNTIL REPORT GIVEN TO DAY RN.
--- NOTE | 2019-10-26 08:53 | NUR ---
PATIENT DECLINED ALL OF HIS ORAL MEDICATIONS, WITH THE EXCEPTION OF THE BACLOFEN, BECAUSE HE CANNOT KEEP THEM DOWN. WILL NOTIFY DR ESTRADA WHEN HE MAKES HIS ROUNDS.
--- NOTE | 2019-10-26 10:03 | NUR ---
DR ESTRADA NOTIFIED THAT PATIENT HAS NOT TAKEN HIS PO MEDICATIONS AT 1000. DR ESTRADA WENT IN TO VISIT WITH PATIENT.
[2019-10-26] MEDS ORDERED: ONDA4ODT MM (13:28)
--- NOTE | 2019-10-26 13:55 | NUR ---
DISCHARGE INSTRUCTIONS GIVEN TO PATIENT WITH AT BEDSIDE. EDUCATIONAL MATERIAL GIVEN WELL. IV REMOVED FROM DANIEL. ALL QUESTIONS ANSWERED. PATIENT IS READY TO DISCHARGE HOME, WAITING FOR DIGITAL CONTROLS TECHNICAL OFFICER AND W/C TO ASSIST HIM OUT TO VEHICLE. TO TRANPORT HIM HOME.
--- NOTE | 2019-10-26 13:58 | NUR ---
PATIENT DISCHARGED HOME AT 1355.
== END 2019-10-26 13:52 | disposition home or self-care (01) | DRG 392 ==
LOC: ER 17:35 → MEDS 17:36
PROVIDERS: Emergency Medicine; Hospitalist; ADMIT Internal Medicine
DX: K52.9 Noninfective gastroenteritis and colitis, unspecified (principal); N17.9 Acute kidney failure, unspecified; E86.0 Dehydration; G47.33 Obstructive sleep apnea (adult) (pediatric); I10 Essential (primary) hypertension; E87.6 Hypokalemia; E78.5 Hyperlipidemia, unspecified; I48.91 Unspecified atrial fibrillation; Z86.73 Personal history of transient ischemic attack (TIA), and cerebral infarction without residual deficits; Z79.01 Long term (current) use of anticoagulants
CPT/HCPCS: 36415; 74018; 74177; 80048; 80053; 81003; 83690; 83735; 85025; 85027; 85610; 85730; 87324; 87493; 93005; 93010; 96361; 96365; 96366; 96375; 96376; 99285-25; G0378; J2405; J2550; J2765; J3010; J3480; J7030; Q9967

== ENCOUNTER 2019-11-22 06:50 | Inpatient (IN) | payer OTHER, MEDICARE ==
[~2019-11-22] VITALS: Ht 180.3 cm; Wt 92.2 kg
[~2019-11-22 06:50] MED LIST changes: +AMLO5 PO; +ASPIR 8181 M1 PO; +BACL20 PO; +Cymbalta20 MG PT; +FURO20 PO; +LISI20 PO; +ONDA4ODT MM; +TRAZ100 PO; +VANCOMYCIN50 MG/1 ML PO
[2019-11-22] MEDS ORDERED: TRAZ50 (07:29)
[2019-11-22] MEDS ORDERED: MORP15ER (07:31)
[2019-11-22 07:42] LABS: BASOPHILS ABSOLUTE AUTO 0.02 K/mm3 (0.00-0.23); BASOPHILS PERCENT AUTO 0 % (0-2); EOSINOPHILS ABSOLUTE AUTO 0.08 K/mm3 (0.00-0.68); EOSINOPHILS PERCENT AUTO 1 % (0-6); Hematocrit 34.3 % (37.0-53.0); Hemoglobin 10.9 g/dL (13.5-17.5); IMMATURE GRAN ABSOLUTE AUTO 0.03 K/mm3 (0.00-0.10); IMMATURE GRAN PERCENT AUTO 0 % (0-1); LYMPHOCYTES ABSOLUTE AUTO 1.58 K/mm3 (0.84-5.20); LYMPHOCYTES PERCENT AUTO 20 % (21-46); MONOCYTES ABSOLUTE AUTO 1.26 K/mm3 (0.16-1.47); MONOCYTES PERCENT AUTO 16 % (4-13); Mean Corpuscular HGB 25.9 pg (26.0-34.0); Mean Corpuscular HGB Conc 31.8 g/dL (31.5-36.5); Mean Corpuscular Volume 82 fL (80-100); Mean Platelet Volume 9.2 fL (9.1-12.4); NEUTROPHILS PERCENT AUTO 63 % (41-73); Platelet Count 289 K/mm3 (150-400); RDW Coefficient Variation 17.6 % (11.7-14.2); RDW Standard Deviation 52.1 fL (35.1-46.3); Red Blood Cell Count 4.21 M/mm3 (4.30-5.90); White Blood Cell Count 7.97 K/mm3 (4.00-11.30)
[2019-11-22 08:06] LABS: Alanine Aminotransfer (ALT/SGP 13 U/L (12-78); Albumin/Globulin Ratio 0.7 (0.8-1.8); Alk Phos 98 U/L (50-136); Anion Gap 7 mmol/L (6-16); Aspartate Aminotrans (AST/SGOT 24 U/L (12-37); Bilirubin, Total 0.2 mg/dL (0.1-1.0); Blood Urea Nitrogen 31 mg/dL (8-24); Bun/Creatinine Ratio 16.2 (12.0-20.0); CO2, Blood 29 mmol/L (21-32); Calcium, Blood 6.2 mg/dL (8.5-10.1); Chloride, Blood 104 mmol/L (98-108); Creatinine, Blood 1.91 mg/dL (0.60-1.20); Glomerular Filtration Rate 37 (60-); Glucose, Blood 114 mg/dL (70-99); Potassium, Blood 2.7 mmol/L (3.5-5.5); Sodium, Blood 140 mmol/L (136-145); Troponin I <0.015 ng/mL (0.000-0.040)
[2019-11-22] MEDS ORDERED: ASPI81CH PO (10:23)
[2019-11-22] MEDS ORDERED: BACL10 PO (10:24)
[2019-11-22] MEDS ORDERED: BUDE6HFA INH (10:24)
[2019-11-22] MEDS ORDERED: Prozac20 MG PO (10:25)
[2019-11-22] MEDS ORDERED: TUMS500 MG PO (10:25)
[2019-11-22] MEDS ORDERED: Neurontin800 MG PO (10:25)
[2019-11-22] MEDS ORDERED: LACT PO (10:26)
[2019-11-22] MEDS ORDERED: ZESTRIL40 M1 PO (10:26)
[2019-11-22] MEDS ORDERED: METO50ER PO (10:26)
[2019-11-22] MEDS ORDERED: NITR.4SL SL (10:27)
[2019-11-22] MEDS ORDERED: MORP15ER PO (10:27)
[2019-11-22] MEDS ORDERED: ONDA4 PO (10:27)
[2019-11-22] MEDS ORDERED: ZOCOR20 MG PO (10:28)
[2019-11-22] MEDS ORDERED: XARELTO20 MG PO ×2 (10:28→12:27)
[2019-11-22] MEDS ORDERED: TRAZ100 PO (10:29)
[2019-11-22] MEDS ORDERED: TAMS.4ER PO (10:29)
[2019-11-22 11:27] LABS: Adenovirus F 40/41 Not Detected (NOT DETECT); Astrovirus Not Detected (NOT DETECT); Campylobacter Sp Not Detected (NOT DETECT); Cryptosporidium Not Detected (NOT DETECT); Cyclospora Cayetanensis Not Detected (NOT DETECT); E. Coli O157 Not Detected (NOT DETECT); Entamoeba Histolytica Not Detected (NOT DETECT); Enteroaggregative E. coli-EAEC Not Detected (NOT DETECT); Enteropathogenic E. coli-EPEC Not Detected (NOT DETECT); Enterotoxigenic E. coli-ETEC Not Detected (NOT DETECT); Giardia Lamblia Not Detected (NOT DETECT); Norovirus GI/GII Not Detected (NOT DETECT); Plesiomonas Shigelloides Not Detected (NOT DETECT); Rotavirus A Not Detected (NOT DETECT); Salmonella Sp Not Detected (NOT DETECT); Sapovirus Not Detected (NOT DETECT); Shiga Toxin-prod E. coli-STEC Not Detected (NOT DETECT); Shigella/Enteroin E. coli-EIEC Not Detected (NOT DETECT); Vibrio Cholerae Not Detected (NOT DETECT); Vibrio Sp Not Detected (NOT DETECT); Yersinia Enterocolitica Not Detected (NOT DETECT)
[2019-11-22] MEDS ORDERED: ACET500 PO (12:24)
[2019-11-22] MEDS ORDERED: ALBU90OI INH (12:29)
[2019-11-22] MEDS ORDERED: Cymbalta20 MG PO (12:34)
--- NOTE | 2019-11-22 14:26 | NUR ---
ADISSION FROM ED. BROUGHT TO PCU VIA JARRET, REPORT FROM MAGDA. K+ AND NS INFUSING ON ARRIVAL. A/A/0X4, JARQUIN CATH PLACED BY ED. VSS, CALL LIGHT IN REACH. WILL CONTINUE TO MONITOR.
[2019-11-22 15:13] LABS: Hemoglobin 10.9 g/dL (13.5-17.5)
[2019-11-22 15:56] LABS: Source, Urine Clean Catch
[2019-11-22 16:08] LABS: Bilirubin, Urine Neg (Neg); Blood, Urine Neg (Neg); Glucose Qualitative, Urine Neg (Neg); Ketones, Urine Neg (Neg); Leukocyte Esterase, Urine Neg (Neg); Nitrite, Urine Neg (Neg); Protein, Urine 2+ (Neg); Specific Gravity, Urine 1.015 (1.003-1.022); Urobilinogen, Urine NORM (Normal)
[2019-11-22 16:10] LABS: Appearance, Urine Clear (Clear); Color, Urine Yellow (P-Yellow)
[2019-11-22 16:15] LABS: Bacteria Few /hpf; Mucus Light (0-Heavy); Red Blood Cells, Urine 0-2 /hpf (0-2); Squamous Epithelial Cells Few /hpf (Few); White Blood Cells, Urine 0-2 /hpf (0-5)
--- NOTE | 2019-11-22 17:50 | NUR ---
SHIFT SUMMARY; ADMISSION FROM ED DURING SHIFT. REPORTS WEAKNESS AND SYNCOPE AT HOME WITH 5 DAYS DIARRHEA. C-DIFF POSITIVE STOOL IN ED. REPORTS HX OF SAME RECENTLY. A/A/OX4. 2 PERSON ASSIST DURING SHIFT WITH ATTENDS CHANGE AND LEIF CARE. LOOSE WATERY, RED STOOL X2 DURING AFTERNOON. VSS, LR INFUSING AT 100ML/HR. SITTING IN HIGH FOWLERS AT DINNER, MEAL TRAY PROVIDED. MEPILEX TO PRESSURE SORE TO COCCYX. BARRIER CREAM TO BUTTOX AND GROIN FOR RED TENDER SKIN.
[2019-11-22 21:16] LABS: Hematocrit 29.4 % (37.0-53.0); Hemoglobin 9.7 g/dL (13.5-17.5)
[2019-11-23 03:45] LABS: BASOPHILS ABSOLUTE AUTO 0.01 K/mm3 (0.00-0.23); BASOPHILS PERCENT AUTO 0 % (0-2); EOSINOPHILS ABSOLUTE AUTO 0.05 K/mm3 (0.00-0.68); EOSINOPHILS PERCENT AUTO 1 % (0-6); Hematocrit 27.6 % (37.0-53.0); Hemoglobin 8.8 g/dL (13.5-17.5); IMMATURE GRAN ABSOLUTE AUTO 0.05 K/mm3 (0.00-0.10); IMMATURE GRAN PERCENT AUTO 1 % (0-1); LYMPHOCYTES ABSOLUTE AUTO 1.54 K/mm3 (0.84-5.20); LYMPHOCYTES PERCENT AUTO 22 % (21-46); MONOCYTES ABSOLUTE AUTO 1.24 K/mm3 (0.16-1.47); MONOCYTES PERCENT AUTO 18 % (4-13); Mean Corpuscular HGB Conc 31.9 g/dL (31.5-36.5); Mean Corpuscular Volume 81 fL (80-100); Mean Platelet Volume 9.4 fL (9.1-12.4); NEUTROPHILS ABSOLUTE AUTO 4.03 K/mm3 (1.96-9.15); NEUTROPHILS PERCENT AUTO 58 % (41-73); Platelet Count 227 K/mm3 (150-400); RDW Coefficient Variation 17.8 % (11.7-14.2); RDW Standard Deviation 52.8 fL (35.1-46.3); Red Blood Cell Count 3.39 M/mm3 (4.30-5.90); White Blood Cell Count 6.92 K/mm3 (4.00-11.30)
[2019-11-23 04:03] LABS: Albumin, Blood 1.6 g/dL (3.4-5.0); Albumin/Globulin Ratio 0.7 (0.8-1.8); Bilirubin, Total 0.3 mg/dL (0.1-1.0); Bun/Creatinine Ratio 17.9 (12.0-20.0); Calcium, Blood 6.1 mg/dL (8.5-10.1); Creatinine, Blood 1.34 mg/dL (0.60-1.20); Globulin, Blood 2.3 g/dL (2.2-4.0); Magnesium, Blood 1.5 mg/dL (1.6-2.4); Potassium, Blood 3.2 mmol/L (3.5-5.5); Total Protein, Blood 3.9 g/dL (6.4-8.2)
--- NOTE | 2019-11-23 06:41 | NUR ---
SHIFT SUMMARY PT A&O X4. BP's LOW, OTHERWISE VSS. SPO2 > 92% ON 3L NC. MONITOR SHOWS AFIB, HR 80's-110's. 4 BT RUN OF VTACH @ 0234 THIS AM & 8 BT RUN OF VTACH @ 9939. VSS W/ PT REPORT OF "I FELT A FLUTTERING." EVENT STRIPS PRINTED & PLACED IN CHART. PT C/O "BACK & BUTT" PAIN. PRESSURE ULCERES NOTED TO PT's COCCYX/BUTTOCKS. PT C/O PAIN W/ ANY PT CARE/MOVEMENT. PT W/ MULT BLOODY BM's THIS SHIFT, PASSING DARK MAROON COLORED CLOTS, LIQUID, AND JELLY LIKE STOOL. PROTONIX GTT INFUSING PER ORDERS. LR GTT INFUSING PER ORDERS. JARQUIN CATH PATENT AND DRAINING. PUSS NOTED TO BE COMING FROM HEAD OF PT's PENIS. FREQUENT PRN LEIF CARE/CATH CARE/ATTENDS CHANGES PROVIDED. WILL CONTINUE TO MONITOR AND PROVIDE CARE UNTIL REPORT OFF TO DAY SHIFT RN.
--- NOTE | 2019-11-23 07:30 | NUR ---
ASSUMED CARE AT 0700. A/A/OX4 RESTING IN BED IN SUPINE POSITION. JARQUIN CATH IN PLACE DRAINING CLEAR STRAW URINE. ATTENDS ON WITH MEPILEX ON COCCYX. CONTINUES TO HAVE INTERMITANT RED JELLY LIKE OUT PUT FROM RECTUM. CONSULTED BY GI LAST NIGHT. WILL CONTINUE TO MONITOR. CALL LIGHT IN REACH, SIDE RAILS X3 LOCKED.
[2019-11-23 10:58] LABS: Percent Saturation 21.4 % (20.0-50.0)
[2019-11-23 12:41] LABS: Hematocrit 29.9 % (37.0-53.0); Hemoglobin 9.6 g/dL (13.5-17.5)
--- NOTE | 2019-11-23 18:08 | NUR ---
SHIFT SUMMARY; SLEEPING INTERMIANTLY THROUGHOUT DAY. REPORTS PAIN TO LOW BACK WHICH IS CHRONIC. MEDICATED PER ORDERS WITH PO PAIN MEDS. MULTIPLE ATTENDS CHANGES THROUGHOUT DAY. NO LOOSE STOOL DURING SHIFT. RED BLOOD WITH ATTENDS CHANGES DECREASING THROUGHOUT SHIFT TO MINIMAL AMOUNT. PROTONIX INFUSING AT 10ML/HR. A/A/OX4. REPOSITIONED Q2 HOURS, MEPILEX DRESSING ON COCCYX FOR PRESSURE ULCER THAT WAS PRESENT ON ADMIT.
[2019-11-23 20:56] LABS: Hematocrit 23.7 % (37.0-53.0); Hemoglobin 7.8 g/dL (13.5-17.5)
[2019-11-24 04:17] LABS: BASOPHILS ABSOLUTE AUTO 0.01 K/mm3 (0.00-0.23); BASOPHILS PERCENT AUTO 0 % (0-2); EOSINOPHILS ABSOLUTE AUTO 0.06 K/mm3 (0.00-0.68); EOSINOPHILS PERCENT AUTO 1 % (0-6); Hematocrit 22.2 % (37.0-53.0); Hemoglobin 7.1 g/dL (13.5-17.5); IMMATURE GRAN ABSOLUTE AUTO 0.06 K/mm3 (0.00-0.10); IMMATURE GRAN PERCENT AUTO 1 % (0-1); LYMPHOCYTES ABSOLUTE AUTO 1.09 K/mm3 (0.84-5.20); LYMPHOCYTES PERCENT AUTO 25 % (21-46); MONOCYTES ABSOLUTE AUTO 0.87 K/mm3 (0.16-1.47); MONOCYTES PERCENT AUTO 20 % (4-13); Mean Corpuscular HGB 25.8 pg (26.0-34.0); Mean Corpuscular Volume 81 fL (80-100); Mean Platelet Volume 9.2 fL (9.1-12.4); NEUTROPHILS ABSOLUTE AUTO 2.31 K/mm3 (1.96-9.15); NEUTROPHILS PERCENT AUTO 52 % (41-73); Platelet Count 199 K/mm3 (150-400); RDW Coefficient Variation 17.6 % (11.7-14.2); RDW Standard Deviation 52.3 fL (35.1-46.3); Red Blood Cell Count 2.75 M/mm3 (4.30-5.90)
[2019-11-24 04:38] LABS: Albumin, Blood 1.3 g/dL (3.4-5.0); Anion Gap 4 mmol/L (6-16); Blood Urea Nitrogen 16 mg/dL (8-24); Bun/Creatinine Ratio 15.4 (12.0-20.0); CO2, Blood 28 mmol/L (21-32); Calcium, Blood 6.2 mg/dL (8.5-10.1); Chloride, Blood 109 mmol/L (98-108); Creatinine, Blood 1.04 mg/dL (0.60-1.20); Glomerular Filtration Rate >60 (60-); Glucose, Blood 85 mg/dL (70-99); Phosphorus, Blood 2.4 mg/dL (2.5-4.9); Potassium, Blood 3.1 mmol/L (3.5-5.5); Sodium, Blood 141 mmol/L (136-145)
--- NOTE | 2019-11-24 06:17 | NUR ---
SHIFT SUMMARY PT A&O X4. VSS. MONITOR SHOWS AFIB, HR 80's-90's. SPO2 > 92% ON 2L NC. PT PAINFUL W/ MOVEMENT OR BEING TOUCHED. PRESSURE ULCER NOTED TO COCCYX/BUTTOCKS. PT W/ MULT EPISODES OF MAROON COLORED, JELLY LIKE BLEED FROM RECTUM. PRN LEIF CARE, CATH CARE, & ATTENDS CHANGES PROVIDED. JARQUIN CATH PATENT AND DRAINING YELLOW URINE. LR GTT & PROTONIX GTT INFUSING PER ORDERS. K LEVEL 3.1 THIS MORNING. CALL TO MD MAN W/ ORDERS FOR 40 MEQ PO KCL, GIVEN. HGB NOTED TO BE 7.1 W/ PROGRESS NOTE DATED 11/23/19 BY MD MARY INSTRUCTING TO TRANSFUSE FOR HGB < 7.0. WILL CONTINUE TO MONITOR AND PROVIDE CARE UNTIL REPORT OFF TO DAY SHIFT RN.
--- NOTE | 2019-11-24 07:25 | NUR ---
ASSUMED PATIENT CARE. PATIENT RESTING COMFORTABLY IN BED, CONVERSING WITH NURSING STAFF. NO SIGNS OF ACUTE DISTRESS, WCTM.
--- NOTE | 2019-11-24 11:57 | NUR ---
Spiritual care visit conducted. Patient immediately tells me that he is not doing well and that he is struggling physically and with his mind. Patient voices the reasons for the struggle. I listen empathically, normalize patient experience, reinforce helpful attitudes and practices and provide pastoral residential treatment counselor and prayer. Patient responds well and shows signs of improved hope. I will continue to remain available to patient and family.
--- NOTE | 2019-11-24 19:31 | NUR ---
RELINQUISHED PATIENT CARE.
--- NOTE | 2019-11-24 19:41 | NUR ---
NO ACUTE EVENTS THIS SHIFT. PATIENT H&H CONTINUED TO TREND DOWN AND X2 UNITS PRBCs GIVEN THIS SHIFT. PATIENT CONTINUED TO HAVE LOOSE, RED STOOLS WITH EITHER SCANT AMOUNTS OF FORMED STOOL OR CLOTS. PATIENT LOW IN K+, Ca AND Mag, RECIEVED THESE IV ALONG WITH IV ABX. PATIENT IS ALSO RECEIVING IV PUSH PROTONIX. PLAN IS TO CONTINUE TO TREAT C. DIFF. WITH IV AND PO ABX, AND SUPPORT H&H NEEDED, AND PROMOTE PO INTAKE OF CLEAR LIQUID DIET.
[2019-11-24 20:49] LABS: Hematocrit 28.3 % (37.0-53.0); Hemoglobin 9.5 g/dL (13.5-17.5)
[2019-11-25 04:53] LABS: BASOPHILS ABSOLUTE AUTO 0.01 K/mm3 (0.00-0.23); BASOPHILS PERCENT AUTO 0 % (0-2); EOSINOPHILS ABSOLUTE AUTO 0.04 K/mm3 (0.00-0.68); EOSINOPHILS PERCENT AUTO 1 % (0-6); Hemoglobin 9.8 g/dL (13.5-17.5); IMMATURE GRAN ABSOLUTE AUTO 0.11 K/mm3 (0.00-0.10); IMMATURE GRAN PERCENT AUTO 2 % (0-1); LYMPHOCYTES ABSOLUTE AUTO 1.73 K/mm3 (0.84-5.20); LYMPHOCYTES PERCENT AUTO 31 % (21-46); MONOCYTES ABSOLUTE AUTO 0.96 K/mm3 (0.16-1.47); MONOCYTES PERCENT AUTO 17 % (4-13); Mean Corpuscular HGB 27.5 pg (26.0-34.0); Mean Corpuscular HGB Conc 33.8 g/dL (31.5-36.5); Mean Corpuscular Volume 82 fL (80-100); Mean Platelet Volume 8.6 fL (9.1-12.4); NEUTROPHILS ABSOLUTE AUTO 2.75 K/mm3 (1.96-9.15); NEUTROPHILS PERCENT AUTO 49 % (41-73); Platelet Count 209 K/mm3 (150-400); RDW Coefficient Variation 16.7 % (11.7-14.2); RDW Standard Deviation 50.4 fL (35.1-46.3); Red Blood Cell Count 3.56 M/mm3 (4.30-5.90)
[2019-11-25 05:08] LABS: Albumin, Blood 1.5 g/dL (3.4-5.0); Anion Gap 4 mmol/L (6-16); Blood Urea Nitrogen 11 mg/dL (8-24); Bun/Creatinine Ratio 11.6 (12.0-20.0); CO2, Blood 27 mmol/L (21-32); Calcium, Blood 6.2 mg/dL (8.5-10.1); Chloride, Blood 109 mmol/L (98-108); Creatinine, Blood 0.95 mg/dL (0.60-1.20); Glomerular Filtration Rate >60 (60-); Glucose, Blood 89 mg/dL (70-99); Phosphorus, Blood 2.9 mg/dL (2.5-4.9); Potassium, Blood 3.6 mmol/L (3.5-5.5); Sodium, Blood 140 mmol/L (136-145)
--- NOTE | 2019-11-25 06:24 | NUR ---
SHIFT SUMMARY PATIENT PLEASENT THROUGHOUT THE NIGHT. PATIENT APPEARED TO NAP ON AND OFF LAST NIGHT. PATIENT MEDICATED FOR PAIN AND NAUSEA PER EMAR. IV FLUIDS RUNNING PER ORDERS. ABX GIVEN PER ORDERS. VITAL SIGNS CHARTED. CALL LIGHT WITHIN REACH. WILL CONTINUE TO MONITOR PATIENT AND REPORT TO ONCOMING RN.
--- NOTE | 2019-11-25 07:11 | NUR ---
ASSUMED PATIENT CARE. PATIENT SLEEPING COMFORTABLY IN BED, NO SIGNS OF ACUTE DISTRESS, WCTM.
--- NOTE | 2019-11-25 14:55 | NUR ---
REPORT GIVEN TO CARMINA DYE IN MEDICAL.
--- NOTE | 2019-11-25 15:08 | NUR ---
PATIENT TRANSFERRED TO MEDICAL FLOOR.
--- NOTE | 2019-11-25 16:22 | NUR ---
TRANSFER NOTE- PT ALERT AND ORIENTED. REQUESTED A CHANGE, HAD ANOTHER INCONTINENT STOOL, PT CHANGED AND REPOSITIONED ON MULTIPLE PILLOWS. CALMAZINE APPLIED TO EXCORIATIONS MEPILEX CHANGED D/T BEING SOILED. AFTER THE CHANGE THE PT REQUESTED PAIN MEDICATION, MS CONTIN NOT AVAILABLE FOR A COUPLE OF HOURS. PT REQUESTED TYLENOL. CALLED DR MALLOY FOR TYLENOL, NEW ORDER RECIEVED. WILL MEDICATE ONCE ORDER IS VERIFIED.
--- NOTE | 2019-11-25 18:46 | NUR ---
SHIFT SUMMARY- PT HAS HAD NO ACUTE CHANGE SINCE TRANSFER TO MEDICAL FLOOR. EXCORIATIONS ON BUTTOX NEED SPECIAL ATTENTION DURING LEIF CARE. FREQUENT INCONTINENT STOOLS D/T C-DIFF. PT CALLS APPROPRIATELY WHEN HE HAS LOOSE STOOLS. 2P MAX ASSIST WITH ROLL AND CHANGE.
[2019-11-26 04:02] LABS: BASOPHILS PERCENT AUTO 0 % (0-2); EOSINOPHILS ABSOLUTE AUTO 0.06 K/mm3 (0.00-0.68); EOSINOPHILS PERCENT AUTO 2 % (0-6); Hematocrit 27.2 % (37.0-53.0); Hemoglobin 9.1 g/dL (13.5-17.5); IMMATURE GRAN ABSOLUTE AUTO 0.14 K/mm3 (0.00-0.10); IMMATURE GRAN PERCENT AUTO 4 % (0-1); LYMPHOCYTES ABSOLUTE AUTO 0.98 K/mm3 (0.84-5.20); LYMPHOCYTES PERCENT AUTO 26 % (21-46); MONOCYTES ABSOLUTE AUTO 0.68 K/mm3 (0.16-1.47); MONOCYTES PERCENT AUTO 18 % (4-13); Mean Corpuscular HGB 27.3 pg (26.0-34.0); Mean Corpuscular HGB Conc 33.5 g/dL (31.5-36.5); Mean Corpuscular Volume 82 fL (80-100); Mean Platelet Volume 8.7 fL (9.1-12.4); NEUTROPHILS ABSOLUTE AUTO 1.96 K/mm3 (1.96-9.15); NEUTROPHILS PERCENT AUTO 51 % (41-73); Platelet Count 184 K/mm3 (150-400); RDW Coefficient Variation 16.9 % (11.7-14.2); RDW Standard Deviation 50.7 fL (35.1-46.3); Red Blood Cell Count 3.33 M/mm3 (4.30-5.90); White Blood Cell Count 3.82 K/mm3 (4.00-11.30)
[2019-11-26 04:25] LABS: Anion Gap 4 mmol/L (6-16); Blood Urea Nitrogen 9 mg/dL (8-24); CO2, Blood 28 mmol/L (21-32); Calcium, Blood 6.1 mg/dL (8.5-10.1); Chloride, Blood 107 mmol/L (98-108); Glomerular Filtration Rate >60 (60-); Glucose, Blood 83 mg/dL (70-99); Magnesium, Blood 1.4 mg/dL (1.6-2.4); Potassium, Blood 3.5 mmol/L (3.5-5.5); Sodium, Blood 139 mmol/L (136-145)
--- NOTE | 2019-11-26 07:39 | NUR ---
11/26/19 0545 SLEEPING WELL THIS AM. VITALS STABLE. MEDICATED FOR CHRONIC HEADACHES EARLIER IN SHIFT. UNEVENTFUL NIGHT.
--- NOTE | 2019-11-26 07:42 | NUR ---
11/26/19 0655 MEDICATED FOR CHRONIC PAIN PER OCT. PT HAS BEEN TRUNED Q 2-3 HOURS PER HIS REQUEST. ALFREDITO ANDRES. JARQUIN CATH. DRAINING WELL.
--- NOTE | 2019-11-26 18:28 | NUR ---
PT. SITTING UP IN BED EATING DINNER. DIET CHANGED TODAY TO MECH SOFT, WITH GROUND MEAT. TOLERATED WELL. NO OTHER NOTEABLE CHANGES. PT. STILL HAVING LOOSE STOOLS TODAY.
--- NOTE | 2019-11-27 03:35 | NUR ---
SUMMARY PT HAS BEEN RESTING QUIETLY WITH FEW INTRRUPTIONS SINCE HE REQUESTED SLEEP MED "MELATONIN" AND IT WAS ORDERED. IVF OF LR CONTINUES AT 100 ML/HR PER MD ORDERS. CHANGED WHEN INCONT OF FECES, FECES REMAINS LIQUID AND PT IS IN ISOLATION FOR R/O C DIFF. TAKING PO VANCOMYCIN Q 6 HRS ORDERED. CALL LIGHT IN REACH.
--- NOTE | 2019-11-27 14:58 | NUR ---
Pt resting in bed upon arrival. Pt is A&O and reports pain is managed with current regimen. Pt denies dyapnea at this time but reports SOB with exertion including repositioning in bed. Pt reports living at home with his , has 2 children, one of whom lives in [facility]. Listened as Pt describes event leading up to hospital stay. Pt reports concerns of his 's ability to help him up is he collapses again. Pt [facility] He [facility] 12 hours a week. Suggested having his needs reassessed to see if he qualifies for more hours. Discussed current code status. Educated Pt on life sustaining measures including risks and implications. Pt reports wanting to be a full code. He states he does not want to be intubated for a long period of time. Pt also reports having a comleted Advanced Directive with the [place]. Pt reports no other concerns at this time. Spoke with Pt's Bedside HARDIK Oliveira and discussed case. Spoke with Caremanager Tenorio and relayed Pt's concerns. Spoke with Dr Gonsalez, discussed case, and relayed Pt's wishes. Placed new code status order for full code per V/O from Dr Gonsalez. Palliative Care will remain available and will fax a request to [place] for AD/POLST.
--- NOTE | 2019-11-27 15:13 | NUR ---
Initial spiritual care note: Mr. Avelar is non-sikhism and declined auto body customizer visit.
--- NOTE | 2019-11-27 17:25 | NUR ---
SUMMARY PT SITTING UP IN THE CHAIR AT THE BEDSIDE, PT HAS BEEN PLEASANT AND COOPERATIVE WITH CARE T/O THE DAY, PT WORKED WITH PT/OT, PT HAS BEEN INCONTINENT OF A FEW LOOSE STOOLS TODAY, BUTTOCKS AND LEIF AREA IS RED, CREAM AND FOAM DRESSING APPLIED, PT MED PER EMAR FOR PAIN, VSS, NO ACUTE CHANGES, WILL CONT TO MONITOR
--- NOTE | 2019-11-28 04:10 | NUR ---
11/28/19 0400 PT REQUESTING TYLENOL FOR CHRONIC BACK/BUTTOCKS DISCOMFORT. MEDICATED PER OCT. STATES HE HAS NOT SLEPT YET THIS NIGHT. VITALS STABLE. REPOSITIONED Q 2-3 HOURS FOR COMFORT. JARQUIN PATENT WITH CLEAR YELLOW URINE.
[2019-11-28 04:55] LABS: Anion Gap 4 mmol/L (6-16); Blood Urea Nitrogen 6 mg/dL (8-24); Bun/Creatinine Ratio 6.1 (12.0-20.0); CO2, Blood 29 mmol/L (21-32); Calcium, Blood 6.1 mg/dL (8.5-10.1); Chloride, Blood 105 mmol/L (98-108); Creatinine, Blood 0.98 mg/dL (0.60-1.20); Glomerular Filtration Rate >60 (60-); Glucose, Blood 92 mg/dL (70-99); Magnesium, Blood 1.4 mg/dL (1.6-2.4); Potassium, Blood 3.9 mmol/L (3.5-5.5); Sodium, Blood 138 mmol/L (136-145)
--- NOTE | 2019-11-28 17:10 | NUR ---
PT IS A/OX3, PLEASANT AND COOPERATIVE, THE PT IS UP WITH 1 PERSON ASSIST TO THE CHAIR, THE PT WAS UP INTO THE CHAIR FOR LUNCH AND DINNER TODAY, THE PT APPEARS TO BE BREATHING EASILY AT REST, THE PT WAS MEDICATED FOR PAIN X1 SO FAR THIS SHIFT, PT REPORTED NO DIARRHEA OR BM SO FAR THIS SHIFT, PT WAS REPOSITIONED T/O THE DAY, CALL LIGHT WITHIN REACH, WILL CONTINUE TO MONITOR AND ASSESS FOR CHANGES
--- NOTE | 2019-11-29 04:56 | NUR ---
SHIFT SUMMARY- PT. A&O, COOPERATIVE WITH CARE. PT. UP TO THE BATHROOM MULTIPLE TIMES T/O THE NIGHT, HAD LOOSE STOOLS. C/O PAIN 1X TO THE LOWER BACK AND LT HIP. MEDICATED PER EMAR, WITH GOOD RELIEF. VSS AND JARQUIN PATENT. REPOSITIONED Q2 AND PRN FOR COMFORT. PT. DENIED ANY OTHER NEEDS T/O THE SHIFT. CALL LIGHT WITHIN REACH AND SIDE RAILS UP X2. WILL CONT TO MONITOR.
[2019-11-29 05:05] LABS: Anion Gap 3 mmol/L (6-16); Blood Urea Nitrogen 5 mg/dL (8-24); Bun/Creatinine Ratio 4.9 (12.0-20.0); CO2, Blood 31 mmol/L (21-32); Calcium, Blood 6.4 mg/dL (8.5-10.1); Chloride, Blood 104 mmol/L (98-108); Creatinine, Blood 1.03 mg/dL (0.60-1.20); Glomerular Filtration Rate >60 (60-); Glucose, Blood 85 mg/dL (70-99); Magnesium, Blood 1.7 mg/dL (1.6-2.4); Potassium, Blood 4.1 mmol/L (3.5-5.5); Sodium, Blood 138 mmol/L (136-145)
--- NOTE | 2019-11-29 15:54 | NUR ---
PT IS A/OX3, PLEASANT AND COOPERATIVE, THE PT IS UP WITH MINIMAL ASSIST USES THE FWW, THE PT BECOMES VERY SOB WITH MINIMAL ACITVITY, THEPT WAS MEDICADTE FOR PAIN NEEDED T/O THE DAY, THE PT EARLIER TODAY WAS CONCERNED ABOUT HIS AT HOME AND REQUESTED THAT WE TALK TO ABOUT DISCHARGE, THAT CALL WAS MADE TO THE AND SHE IS CONSIDERING DC HOME POSSIBLE [place] IF THE PT IS STRONG ENOUGH, PT APPEARS TO BE BREATHING EASILY AT REST ON RA, THE PT REPORTS HAVING SOFT STOOL BU NO DIARRHEA AT THIS TIME, CALL LIGHT IN REACH, WILL CONTINUE TO MONITOR AND ASSESS FOR CHANGES
--- NOTE | 2019-11-30 04:43 | NUR ---
SHIFT SUMMARY PATIENT HAD NO ACUTE CHANGES OBSERVED. ONE ASSIST W/FWW. POWERGLIDE REY INTACT. REPORTED LOW BACK PAIN X TWO AND RECIEVED MS CONTIN PER EMAR. DENIES SOB AND N/V. VSS AND ON ROOM AIR. USES URINAL AT BED SIDE. TAKES MEDICATION WHOLE WITH WATER X ONE EACH. COOPERATIVE WITH CARE. CALL LIGHT IN REACH. BED IN LOWEST POSITION. WILL CONTINUE TO MONITOR UNTIL DAY SHIFT NURSE ASSUMES CARE.
[2019-11-30 05:11] LABS: Anion Gap 2 mmol/L (6-16); Blood Urea Nitrogen 4 mg/dL (8-24); Bun/Creatinine Ratio 4.1 (12.0-20.0); CO2, Blood 32 mmol/L (21-32); Calcium, Blood 6.3 mg/dL (8.5-10.1); Chloride, Blood 105 mmol/L (98-108); Creatinine, Blood 0.96 mg/dL (0.60-1.20); Glomerular Filtration Rate >60 (60-); Glucose, Blood 95 mg/dL (70-99); Magnesium, Blood 1.6 mg/dL (1.6-2.4); Potassium, Blood 3.7 mmol/L (3.5-5.5); Sodium, Blood 139 mmol/L (136-145)
[2019-11-30] MEDS ORDERED: ACET325 PO (11:49)
[2019-11-30] MEDS ORDERED: TUMS500 MG PO (11:54)
[2019-11-30] MEDS ORDERED: CHOLP PO (11:55)
[2019-11-30] MEDS ORDERED: MELATONIN5 M1 PO (11:56)
[2019-11-30] MEDS ORDERED: PANT40 PO (11:57)
[2019-11-30] MEDS ORDERED: Florastor250 MG PO (11:58)
[2019-11-30] MEDS ORDERED: VANCOMYCIN50 MG/1 ML (12:00)
[2019-11-30] MEDS ORDERED: Vitamin D2000 UNIT PO (12:01)
--- NOTE | 2019-11-30 14:20 | NUR ---
1258 PT DISCHARGED HOME VIA PERSONAL VEHICLE ACCOPANIED AND DRIVEN BY . ESCORTED TO ENTRANCE VIA W/C BY CHAIR CAR DRIVER. IV REMOVED. D/C INSTRUCTIONS REVIEWED WITH PT AND COPY PROVIDED. NO NEW CHANGES OR CONCERNS.
== END 2019-11-30 12:59 | disposition home health service (06) | DRG 371 ==
LOC: ER 06:50 → PCU 10:09 → MEDS 10:09 → PCU 13:35 → MEDS 11-25 15:06 → ENPENDDIS 11-30 10:00 → MEDS 11-30 12:59
PROVIDERS: Emergency Medicine; Family Medicine; Internal Medicine; Nurse Practitioner Acute Care; Student in an Organized Health Care Education/Training Program; ADMIT Hospitalist
PROC: 30233N1 Transfusion of Nonautologous Red Blood Cells into Peripheral Vein, Percutaneous Approach (ICD-10-PCS; principal; 2019-11-23)
DX: A04.72 Enterocolitis due to Clostridium difficile, not specified as recurrent (principal); J96.01 Acute respiratory failure with hypoxia; N17.9 Acute kidney failure, unspecified; I48.20 Chronic atrial fibrillation, unspecified; D62 Acute posthemorrhagic anemia; R55 Syncope and collapse; N40.0 Benign prostatic hyperplasia without lower urinary tract symptoms; M54.9 Dorsalgia, unspecified; F32.9 Major depressive disorder, single episode, unspecified; I10 Essential (primary) hypertension; E83.51 Hypocalcemia; E87.6 Hypokalemia; E83.42 Hypomagnesemia
CPT/HCPCS: 0097U; 36415; 51702; 71045; 74176; 80048; 80053; 80069; 81001; 82330; 82607; 82728; 82746; 83540; 83550; 83735; 83880; 84132; 84484; 85014; 85018; 85025; 85651; 86140; 86850; 86900; 86901; 86923; 87324; 93005; 93010; 93971; 94640; 94760; 96361; 96365; 96366; 97110; 97116; 97162; 97166; 97530; 97535; 99285-25; A9270; A9270-GY; C9113; J0610; J2405; J3010; J3475; J3480; J7030; J7060; J7120; P9016

== ENCOUNTER → 2020-11-16 | Outpatient (CLI) | payer OTHER ==
[~2020-11-16] MED LIST changes: +ACET325 PO; +ACET500 PO; +ALBU90OI INH; +ASPI81CH PO; +Florastor250 MG PO; +LACT PO; +MELATONIN5 M1 PO; +METO25ER PO; +MORP15ER; +Neurontin800 MG PO; +ONDA4 PO; +PANT40 PO; +POTCHL20ER PO; +TRAZ50; +VANCOMYCIN50 MG/1 ML; +ZESTRIL40 M1 PO
[2020-11-16 11:56] LABS: Appearance, Urine Turbid (Clear); Bilirubin, Urine Neg (Neg); Blood, Urine Neg (Neg); Color, Urine Yellow (P-Yellow); Glucose Qualitative, Urine Neg (Neg); Ketones, Urine Neg (Neg); Leukocyte Esterase, Urine 1+ (Neg); Nitrite, Urine Neg (Neg); Protein, Urine 1+ (Neg); Urobilinogen, Urine NORM (Normal)
[2020-11-16 12:11] LABS: Protein, Urine Random 28.3 mg/dL (0.0-11.9); Protein/Creat Ratio, Ur Random 0.1
[2020-11-16 12:22] LABS: Amorphous Mod (0-Heavy); Bacteria Mod /hpf; Mucus Mod (0-Heavy); Red Blood Cells, Urine 0-2 /hpf (0-2); Squamous Epithelial Cells Not Seen /hpf (Few)
== END ==
LOC: OLS 09:30 → LAB SHORT 09:30
PROVIDERS: Internal Medicine
DX: N18.2 Chronic kidney disease, stage 2 (mild) (principal)
CPT/HCPCS: 81001; 82570; 84156

== ENCOUNTER 2021-01-31 02:26 | Inpatient (IN) | payer OTHER, MEDICARE ==
[~2021-01-31] VITALS: Ht 180.3 cm; Wt 108.8 kg
[2021-01-31 03:08] LABS: BASOPHILS ABSOLUTE AUTO 0.02 K/mm3 (0.00-0.23); BASOPHILS PERCENT AUTO 0 % (0-2); EOSINOPHILS ABSOLUTE AUTO 0.08 K/mm3 (0.00-0.68); EOSINOPHILS PERCENT AUTO 1 % (0-6); Hematocrit 39.9 % (37.0-53.0); Hemoglobin 14.3 g/dL (13.5-17.5); IMMATURE GRAN ABSOLUTE AUTO 0.03 K/mm3 (0.00-0.10); IMMATURE GRAN PERCENT AUTO 0 % (0-1); LYMPHOCYTES ABSOLUTE AUTO 2.13 K/mm3 (0.84-5.20); LYMPHOCYTES PERCENT AUTO 23 % (21-46); MONOCYTES ABSOLUTE AUTO 1.17 K/mm3 (0.16-1.47); MONOCYTES PERCENT AUTO 12 % (4-13); Mean Corpuscular HGB 31.1 pg (26.0-34.0); Mean Corpuscular HGB Conc 35.8 g/dL (31.5-36.5); Mean Corpuscular Volume 87 fL (80-100); Mean Platelet Volume 10.4 fL (9.1-12.4); NEUTROPHILS ABSOLUTE AUTO 5.98 K/mm3 (1.96-9.15); NEUTROPHILS PERCENT AUTO 64 % (41-73); Platelet Count 216 K/mm3 (150-400); RDW Coefficient Variation 14.1 % (11.7-14.2); RDW Standard Deviation 44.8 fL (35.1-46.3); White Blood Cell Count 9.41 K/mm3 (4.00-11.30)
[2021-01-31 03:20] LABS: Albumin, Blood 3.9 g/dL (3.4-5.0); Albumin/Globulin Ratio 1.2 (0.8-1.8); Bilirubin, Total 0.7 mg/dL (0.1-1.0); Bun/Creatinine Ratio 12.4 (12.0-20.0); Calcium, Blood 7.8 mg/dL (8.5-10.1); Creatinine, Blood 1.37 mg/dL (0.60-1.20); Globulin, Blood 3.3 g/dL (2.2-4.0); Potassium, Blood 2.5 mmol/L (3.5-5.5); Total Protein, Blood 7.2 g/dL (6.4-8.2)
[2021-01-31 03:26] LABS: International Normalized Ratio 1.01; Prothrombin Time Results 10.9 Sec (9.7-11.5)
[2021-01-31] MEDS ORDERED: ALBU3IS INH (10:07)
[2021-01-31] MEDS ORDERED: BACL10 PO (10:08)
[2021-01-31] MEDS ORDERED: SYMBICORT 160-4.6 GM INH (10:09)
[2021-01-31] MEDS ORDERED: Calcium Carbon500 MG PO (10:10)
[2021-01-31] MEDS ORDERED: CHOLP PO (10:11)
[2021-01-31] MEDS ORDERED: CYMBALTA20 M1 PO (10:13)
[2021-01-31] MEDS ORDERED: GABA400 PO (10:14)
[2021-01-31] MEDS ORDERED: ZESTRIL40 M1 PO (10:15)
[2021-01-31] MEDS ORDERED: METO25ER PO (10:16)
[2021-01-31] MEDS ORDERED: MORP15ER PO (10:17)
[2021-01-31] MEDS ORDERED: PANT40 PO (10:18)
[2021-01-31] MEDS ORDERED: K-Dur20 MEQ PO (10:20)
[2021-01-31] MEDS ORDERED: XARELTO10 M1 PO (10:21)
[2021-01-31] MEDS ORDERED: Simvastatin20 MG PO (10:22)
[2021-01-31] MEDS ORDERED: FLOMAX0.4 MG PO (10:23)
[2021-01-31] MEDS ORDERED: TRAZ100 PO (10:24)
[2021-01-31] MEDS ORDERED: VITAMIN D31000 UNI1 PO (10:26)
[2021-01-31 10:52] LABS: Hematocrit 36.7 % (37.0-53.0)
[2021-01-31 11:08] LABS: Albumin, Blood 3.5 g/dL (3.4-5.0); Anion Gap 6 mmol/L (6-16); Blood Urea Nitrogen 15 mg/dL (8-24); Bun/Creatinine Ratio 11.5 (12.0-20.0); CO2, Blood 31 mmol/L (21-32); Calcium, Blood 6.9 mg/dL (8.5-10.1); Chloride, Blood 104 mmol/L (98-108); Glomerular Filtration Rate 58 (60-); Glucose, Blood 92 mg/dL (70-99); Phosphorus, Blood 2.7 mg/dL (2.5-4.9); Potassium, Blood 2.5 mmol/L (3.5-5.5); Sodium, Blood 141 mmol/L (136-145)
[2021-01-31 17:04] LABS: Hematocrit 36.5 % (37.0-53.0); Hemoglobin 12.7 g/dL (13.5-17.5)
[2021-01-31 18:03] LABS: C DIFFICILE DNA POSITIVE (Negative)
--- NOTE | 2021-01-31 18:17 | NUR ---
ADMISSION, SHIFT SUMMARY PT ARRIVED TO PCU THIS AFTERNOON WITH BLOODY LOOSE STOOL. PT IS IN ISOLATION FOR POSSIBLE CDIFF. PT IS ALERT AND ORIENTED AND ON RA. VS STABLE OTHERWISE. PT IS HAS GI CONSULT IN PLACE. PT IS RESTING IN BED AT THIS TIME. PT IS ABLE TO USE THE BSC INDEPENDENTLY.
[2021-01-31 22:21] LABS: Hemoglobin 12.6 g/dL (13.5-17.5)
[2021-02-01 03:48] LABS: Hemoglobin 11.8 g/dL (13.5-17.5); Mean Corpuscular HGB Conc 34.7 g/dL (31.5-36.5); Mean Corpuscular Volume 89 fL (80-100); Mean Platelet Volume 10.1 fL (9.1-12.4); Platelet Count 151 K/mm3 (150-400); RDW Coefficient Variation 14.6 % (11.7-14.2); RDW Standard Deviation 47.6 fL (35.1-46.3); Red Blood Cell Count 3.81 M/mm3 (4.30-5.90); White Blood Cell Count 5.32 K/mm3 (4.00-11.30)
[2021-02-01 04:08] LABS: Bun/Creatinine Ratio 10.4 (12.0-20.0); Calcium, Blood 6.7 mg/dL (8.5-10.1); Creatinine, Blood 1.35 mg/dL (0.60-1.20); Potassium, Blood 2.7 mmol/L (3.5-5.5)
--- NOTE | 2021-02-01 05:18 | NUR ---
SHIFT SUMMARY PATIENT IS ALERT AND ORIENTED X4. INDEPENDENT WITH REPOSITIONING. USES URINAL. ASKED PT THROUGHOUT THE NIGHT IF HE HAS HAD ANY BOWEL MOVEMENTS AND HE STATES NO. MEDICATED PER EMAR FOR CHRONIC BACK PAIN. CALLED HOSPITALIST ABOUT PT POTASSIUM OF 2.7 DID A REDRAW AND POTASSIUM 2.9, WILL TALK WITH HOSPITALIST AGAIN TO SEE IF ANY FURTHER ORDERS ARE NEEDED. CALL LIGHT IN REACH.
--- NOTE | 2021-02-01 11:32 | NUR ---
TRANSFERRED PT TRANSFERRED AT APPROXIMATELY 1120 VIA WHEELCHAIR WITH HOOK AND EYE ATTACHER TO THE MEDICAL FLOOR. REPORT GIVEN TO STEVE GOODMAN RN. VS STABLE, PT TRANSFERRED WITH PERSONAL BELONGINGS AND MEDICATIONS. GI WAS RECONSULTED THIS MORNING WELL. PT HAS BEEN MOVED TO 337
--- NOTE | 2021-02-01 18:16 | NUR ---
PT TOLERATING CLEAR LIQUIDS. NO ACUTE CHANGES. CALL LIGHT WITHIN REACH.
--- NOTE | 2021-02-02 04:30 | NUR ---
SHIFT SUMMARY ALERT, ABLE TO MAKE NEEDS KNOWN. COOPERATIVE WITH CARE. CALLS AND ANSWERS QUESTIONS APPROPRIATELY. C/O PAIN/DISCOMFORT TO LOWER ABDOMEN AND BACK (CHRONIC); MEDICATED PER EMAR. APPEARED TO REST OFF AND ON T/O NIGHT. NO ACUTE CHANGES NOTED. CONTINUES TO RECIVED IV FLUIDS/ABX WITHOUT COMPLICATIONS. INDEPENDENT TO BSC. BED REMAINED IN LOWEST POSITION. CALL LIGHT AND BELONGINGS WITHIN REACH. CONTINUE WITH CURRENT PLAN OF CARE. REPORT TO ONCOMING RN.
[2021-02-02 05:35] LABS: Hematocrit 33.1 % (37.0-53.0); Hemoglobin 11.4 g/dL (13.5-17.5); Mean Corpuscular HGB 31.1 pg (26.0-34.0); Mean Corpuscular HGB Conc 34.4 g/dL (31.5-36.5); Mean Corpuscular Volume 90 fL (80-100); Platelet Count 140 K/mm3 (150-400); RDW Coefficient Variation 14.6 % (11.7-14.2); RDW Standard Deviation 48.2 fL (35.1-46.3); Red Blood Cell Count 3.67 M/mm3 (4.30-5.90); White Blood Cell Count 5.52 K/mm3 (4.00-11.30)
[2021-02-02 05:52] LABS: Bun/Creatinine Ratio 9.7 (12.0-20.0); Calcium, Blood 6.5 mg/dL (8.5-10.1); Creatinine, Blood 1.34 mg/dL (0.60-1.20); Potassium, Blood 3.2 mmol/L (3.5-5.5)
--- NOTE | 2021-02-02 17:50 | NUR ---
ALERT. ORIENTED. PLEASANT. COOPERATIVE. INDEPENDENT TO NEAR BSC. IV INFUSING. MEDICATED FOR PAIN WITH GOOD RESULTS. WAS IN TO SEE EARLIER TODAY. TM
--- NOTE | 2021-02-03 04:40 | NUR ---
SHIFT SUMMARY A/O, ABLE TO MAKE NEEDS KNOWN. COOPERATIVE WITH CARE. CALLS AND ANSWERS QUESTIONS APPROPRIATELY. C/O PAIN/DISCOMFORT THAT IS CHRONIC TO LOWER BACK AND HIPS; MEDICATED PER EMAR. MINIMAL DISCOMFORT TO ABDOMEN; STATES FEELS MUCH BETTER. NO BLOOD NOTED TO STOOL; HAD 1 BM OVERNIGHT. IV FLUIDS/ABX CONTINUED TO INFUSE WITHOUT COMPLICATION OVERNIGHT. REMAINS INDEPENDENT TO BSC. NO ACUTE CHANGES NOTED. BED REMAINS IN LOWEST POSITION. CALL LIGHT AND BELONGINGS WITHIN REACH. CONTINUE WITH CURRENT PLAN OF CARE. REPORT TO ONCOMING RN.
[2021-02-03 05:21] LABS: Hematocrit 33.2 % (37.0-53.0); Hemoglobin 11.5 g/dL (13.5-17.5); Mean Corpuscular HGB 30.9 pg (26.0-34.0); Mean Corpuscular HGB Conc 34.6 g/dL (31.5-36.5); Mean Corpuscular Volume 89 fL (80-100); Platelet Count 142 K/mm3 (150-400); RDW Coefficient Variation 14.6 % (11.7-14.2); RDW Standard Deviation 47.8 fL (35.1-46.3); Red Blood Cell Count 3.72 M/mm3 (4.30-5.90); White Blood Cell Count 4.77 K/mm3 (4.00-11.30)
[2021-02-03 05:38] LABS: Bun/Creatinine Ratio 7.2 (12.0-20.0); Calcium, Blood 6.5 mg/dL (8.5-10.1); Creatinine, Blood 1.38 mg/dL (0.60-1.20); Potassium, Blood 3.3 mmol/L (3.5-5.5)
--- NOTE | 2021-02-03 18:28 | NUR ---
SHIFT SUMMARY PT IS AOX4 AND PLEASANT. PT MEDICATED FOR PAIN X2. PT DENIES N/V, SOB. PT IS INDEPENDENT IN ROOM. PT TELE IS NSR. NO PROCEDURES DONE THIS SHIFT. PT DID NOT HAVE VISITORS. PLAN IS TO DC TOMORROW WITH X5 DAYS ABX OUTPATIENT. PT IS IN BED, CALL LIGHT IN REACH, BED IN LOW POSITION.
--- NOTE | 2021-02-03 18:55 | NUR ---
Mr. Avelar's , Rehana, a month ago in ICU. He remebered me and asked to see me today. He responded well to berevament dianetic counselor and I offered to meet with him one on one post discharge. I will remain available.
--- NOTE | 2021-02-04 04:39 | NUR ---
SHIFT SUMMARY NO ACUTE CHANGES THIS SHIFT, MEDICATED 1X FOR LOW BACK & R HIP PAIN W/50 FENT, SLEPT T/O THE NIGHT, BEDRESTING AT THIS TIME, CALL LIGHT IN REACH, WILL CONT TO MONITOR UNTIL REPORT GIVEN TO DAY RN.
[2021-02-04] MEDS ORDERED: AMOCLA500 PO (10:31)
--- NOTE | 2021-02-04 11:30 | NUR ---
PT DISCHARGE TO INTERMEDIATE HOME; CALLED [facility] AT 1130 WITH YVONNE VOLUNTEER. IV YVONNE'D. MEDS FAXED TO [facility]. PT ALSO WILL MAKE AN APPOINTMENT TO PCP AT [facility] AND CONTACT THE PCP FOR ANY CONCERNS. PT DENIES ANY BLOOD STOOL. PT EDUCATED AND GIVEN PACKET ABOUT HIS MEDICATIONS. PT ALSO AWARE OF ANY SIGNS OF BLOODY STOOL. NO OTHER CONCERNS. MED WAS GIVEN THIS AM
== END 2021-02-04 11:25 | disposition home or self-care (01) | DRG 387 ==
LOC: ER 02:26 → PCU 07:53 → ERHOLD 07:53 → MEDS 07:53 → PCU 14:50 → MEDS 02-01 11:25
PROVIDERS: Internal Medicine; Student in an Organized Health Care Education/Training Program; ADMIT Internal Medicine
DX: K51.011 Ulcerative (chronic) pancolitis with rectal bleeding (principal); N18.9 Chronic kidney disease, unspecified; G47.33 Obstructive sleep apnea (adult) (pediatric); I12.9 Hypertensive chronic kidney disease with stage 1 through stage 4 chronic kidney disease, or unspecified chronic kidney disease; E87.6 Hypokalemia; J45.909 Unspecified asthma, uncomplicated; I48.0 Paroxysmal atrial fibrillation; N40.0 Benign prostatic hyperplasia without lower urinary tract symptoms; G89.29 Other chronic pain; M54.9 Dorsalgia, unspecified; F32.9 Major depressive disorder, single episode, unspecified; I25.10 Atherosclerotic heart disease of native coronary artery without angina pectoris; K21.9 Gastro-esophageal reflux disease without esophagitis; E55.9 Vitamin D deficiency, unspecified; Z90.49 Acquired absence of other specified parts of digestive tract; Z98.890 Other specified postprocedural states; Z88.5 Allergy status to narcotic agent; Z88.6 Allergy status to analgesic agent; Z88.8 Allergy status to other drugs, medicaments and biological substances; Z86.73 Personal history of transient ischemic attack (TIA), and cerebral infarction without residual deficits; Z79.01 Long term (current) use of anticoagulants; Z79.899 Other long term (current) drug therapy; Z86.010 Personal history of colon polyps
CPT/HCPCS: 36415; 36416; 74177; 80048; 80053; 80069; 83735; 84132; 85014; 85018; 85025; 85027; 85610; 85651; 85730; 86140; 86850; 86900; 86901; 87324; 87493; 94640; 94664; 94760; 96365; 96375; 99285-25; A9270; J0295; J2270; J2405; J3010; J3480; J7030; Q9967

== ENCOUNTER 2021-05-16 06:46 | Day surgery (SDC) | payer OTHER ==
[~2021-05-16] VITALS: Ht 180.3 cm; Wt 108.6 kg
[~2021-05-16 06:46] MED LIST changes: +ALBU3IS INH; +AMOCLA500 PO; +CYMBALTA20 M1 PO; +Calcium Carbon500 MG PO; +FLOMAX0.4 MG PO; +GABA400 PO; +K-Dur20 MEQ PO; +SYMBICORT 160-4.6 GM INH; +Simvastatin20 MG PO; +VITAMIN D31000 UNI1 PO; +XARELTO10 M1 PO
== END 2021-05-16 09:51 | disposition home or self-care (01) ==
LOC: ORSCSDS 06:46
PROVIDERS: Surgery
PROC: 0DBK8ZX Excision of Ascending Colon, Via Natural or Artificial Opening Endoscopic, Diagnostic (ICD-10-PCS; principal; 2021-05-16 09:15)
DX: K92.2 Gastrointestinal hemorrhage, unspecified (principal); D12.2 Benign neoplasm of ascending colon; I10 Essential (primary) hypertension; I25.10 Atherosclerotic heart disease of native coronary artery without angina pectoris; I48.91 Unspecified atrial fibrillation; Z79.01 Long term (current) use of anticoagulants; E78.5 Hyperlipidemia, unspecified; J44.9 Chronic obstructive pulmonary disease, unspecified; Z86.73 Personal history of transient ischemic attack (TIA), and cerebral infarction without residual deficits; Z79.899 Other long term (current) drug therapy
CPT/HCPCS: 88305; J2704; J7120

== ENCOUNTER 2023-03-27 05:50 | Emergency (ER) | payer OTHER ==
[~2023-03-27] VITALS: Ht 180.3 cm; Wt 43.5 kg
[~2023-03-27 05:50] MED LIST changes: +PROM25 PO
[2023-03-27 06:42] LABS: BASOPHILS ABSOLUTE AUTO 0.01 K/mm3 (0.00-0.23); BASOPHILS PERCENT AUTO 0 % (0-2); EOSINOPHILS ABSOLUTE AUTO 0.11 K/mm3 (0.00-0.68); EOSINOPHILS PERCENT AUTO 1 % (0-6); Hemoglobin 14.4 g/dL (13.5-17.5); IMMATURE GRAN ABSOLUTE AUTO 0.03 K/mm3 (0.00-0.10); IMMATURE GRAN PERCENT AUTO 0 % (0-1); LYMPHOCYTES ABSOLUTE AUTO 1.62 K/mm3 (0.84-5.20); LYMPHOCYTES PERCENT AUTO 20 % (21-46); MONOCYTES ABSOLUTE AUTO 0.88 K/mm3 (0.16-1.47); MONOCYTES PERCENT AUTO 11 % (4-13); Mean Corpuscular HGB 29.9 pg (26.0-34.0); Mean Corpuscular HGB Conc 35.1 g/dL (31.5-36.5); Mean Corpuscular Volume 85 fL (80-100); Mean Platelet Volume 9.9 fL (9.1-12.4); NEUTROPHILS ABSOLUTE AUTO 5.38 K/mm3 (1.96-9.15); NEUTROPHILS PERCENT AUTO 67 % (41-73); Platelet Count 215 K/mm3 (150-400); RDW Coefficient Variation 13.8 % (11.7-14.2); RDW Standard Deviation 42.9 fL (35.1-46.3); Red Blood Cell Count 4.81 M/mm3 (4.30-5.90); White Blood Cell Count 8.03 K/mm3 (4.00-11.30)
[2023-03-27 07:07] LABS: Albumin, Blood 3.8 g/dL (3.4-5.0); Albumin/Globulin Ratio 1.2 (0.8-1.8); Bilirubin, Total 0.7 mg/dL (0.1-1.0); Bun/Creatinine Ratio 15.1 (12.0-20.0); Calcium, Blood 7.3 mg/dL (8.5-10.1); Creatinine, Blood 1.26 mg/dL (0.60-1.20); Globulin, Blood 3.3 g/dL (2.2-4.0); Potassium, Blood 2.9 mmol/L (3.5-5.5); Total Protein, Blood 7.1 g/dL (6.4-8.2)
[2023-03-27 08:22] LABS: International Normalized Ratio 1.03; Prothrombin Time Results 10.8 Sec (9.7-11.5)
[2023-03-27 09:41] VITALS: BP 149/99
== END 2023-03-27 09:40 | disposition home or self-care (01) ==
LOC: ER 05:50
PROVIDERS: Emergency Medicine
DX: R10.13 Epigastric pain (principal); R07.9 Chest pain, unspecified; I48.0 Paroxysmal atrial fibrillation; G47.33 Obstructive sleep apnea (adult) (pediatric); K21.9 Gastro-esophageal reflux disease without esophagitis; I10 Essential (primary) hypertension; Z88.5 Allergy status to narcotic agent; Z88.6 Allergy status to analgesic agent; Z79.899 Other long term (current) drug therapy; Z79.891 Long term (current) use of opiate analgesic
CPT/HCPCS: 36415; 71046; 74177; 80053; 83690; 83735; 83880; 84484; 85025; 85610; 93005; 93010; A9270; J2405; J7030; Q9967

== ENCOUNTER 2023-04-09 12:28 | Emergency (ER) | payer OTHER ==
[~2023-04-09] VITALS: Ht 182.9 cm; Wt 99.8 kg
[2023-04-09 12:56] LABS: BASOPHILS ABSOLUTE AUTO 0.01 K/mm3 (0.00-0.23); BASOPHILS PERCENT AUTO 0 % (0-2); EOSINOPHILS ABSOLUTE AUTO 0.06 K/mm3 (0.00-0.68); EOSINOPHILS PERCENT AUTO 1 % (0-6); Hematocrit 42.9 % (37.0-53.0); Hemoglobin 15.8 g/dL (13.5-17.5); IMMATURE GRAN ABSOLUTE AUTO 0.05 K/mm3 (0.00-0.10); IMMATURE GRAN PERCENT AUTO 1 % (0-1); LYMPHOCYTES ABSOLUTE AUTO 1.84 K/mm3 (0.84-5.20); LYMPHOCYTES PERCENT AUTO 17 % (21-46); MONOCYTES ABSOLUTE AUTO 0.66 K/mm3 (0.16-1.47); MONOCYTES PERCENT AUTO 6 % (4-13); Mean Corpuscular HGB 30.8 pg (26.0-34.0); Mean Corpuscular HGB Conc 36.8 g/dL (31.5-36.5); Mean Corpuscular Volume 84 fL (80-100); Mean Platelet Volume 10.1 fL (9.1-12.4); NEUTROPHILS PERCENT AUTO 76 % (41-73); Platelet Count 254 K/mm3 (150-400); RDW Coefficient Variation 13.6 % (11.7-14.2); RDW Standard Deviation 41.9 fL (35.1-46.3); Red Blood Cell Count 5.13 M/mm3 (4.30-5.90); White Blood Cell Count 10.92 K/mm3 (4.00-11.30)
[2023-04-09 13:13] LABS: Albumin, Blood 4.3 g/dL (3.4-5.0); Albumin/Globulin Ratio 1.1 (0.8-1.8); Bilirubin, Total 0.8 mg/dL (0.1-1.0); Calcium, Blood 7.6 mg/dL (8.5-10.1); Creatinine, Blood 1.09 mg/dL (0.60-1.20); Globulin, Blood 3.8 g/dL (2.2-4.0); Potassium, Blood 4.3 mmol/L (3.5-5.5); Total Protein, Blood 8.1 g/dL (6.4-8.2)
[2023-04-09 17:30] VITALS: BP 161/102
[2023-04-09 18:37] LABS: Campylobacter Sp Not Detected (NOT DETECT); Plesiomonas Shigelloides Not Detected (NOT DETECT); Salmonella Sp Not Detected (NOT DETECT); Vibrio Cholerae Not Detected (NOT DETECT); Vibrio Sp Not Detected (NOT DETECT); Yersinia Enterocolitica Not Detected (NOT DETECT)
[2023-04-09 18:38] LABS: Adenovirus F 40/41 Not Detected (NOT DETECT); Astrovirus Not Detected (NOT DETECT); Cryptosporidium Not Detected (NOT DETECT); Cyclospora Cayetanensis Not Detected (NOT DETECT); E. Coli O157 Not Detected (NOT DETECT); Entamoeba Histolytica Not Detected (NOT DETECT); Enteroaggregative E. coli-EAEC Not Detected (NOT DETECT); Enteropathogenic E. coli-EPEC Not Detected (NOT DETECT); Enterotoxigenic E. coli-ETEC Not Detected (NOT DETECT); Giardia Lamblia Not Detected (NOT DETECT); Norovirus GI/GII Not Detected (NOT DETECT); Rotavirus A Not Detected (NOT DETECT); Sapovirus Not Detected (NOT DETECT); Shiga Toxin-prod E. coli-STEC Not Detected (NOT DETECT); Shigella/Enteroin E. coli-EIEC Not Detected (NOT DETECT)
[2023-04-09] MEDS ORDERED: ONDA4ODT MM (20:18)
[2023-04-09] MEDS ORDERED: LOPE2C PO (20:18)
== END 2023-04-09 20:40 | disposition home or self-care (01) ==
LOC: ER 12:28
PROVIDERS: Emergency Medicine; Physician Assistant
DX: R11.2 Nausea with vomiting, unspecified (principal); R19.7 Diarrhea, unspecified; Z88.5 Allergy status to narcotic agent; Z88.8 Allergy status to other drugs, medicaments and biological substances; Z79.899 Other long term (current) drug therapy; Z79.891 Long term (current) use of opiate analgesic; I48.0 Paroxysmal atrial fibrillation; G47.33 Obstructive sleep apnea (adult) (pediatric); K21.9 Gastro-esophageal reflux disease without esophagitis; I10 Essential (primary) hypertension
CPT/HCPCS: 74177; 80053; 83690; 85025; 87507; 96361; 96374-59; 96375; 99284-25; J0780; J2270; J7030; Q9967

== ENCOUNTER 2024-07-17 08:27 | Emergency (ER) | payer OTHER ==
[~2024-07-17] VITALS: Ht 180.3 cm; Wt 111.1 kg
[~2024-07-17 08:27] MED LIST changes: +LOPE2C PO
[2024-07-17] MEDS ORDERED: NS 1,000 ML IV SCH (08:50)
[2024-07-17] MEDS ORDERED: HYDROmorphone HCl/Pf 1MG SYR IV ONE ×2 (08:50→13:40)
[2024-07-17] MEDS ORDERED: Prochlorperazine Edisylate 10 mg Vial IV ONE (08:50)
[2024-07-17 09:11] LABS: BASOPHILS ABSOLUTE AUTO 0.02 K/mm3 (0.00-0.23); BASOPHILS PERCENT AUTO 0 % (0-2); EOSINOPHILS PERCENT AUTO 0 % (0-6); Hematocrit 40.5 % (37.0-53.0); Hemoglobin 14.1 g/dL (13.5-17.5); IMMATURE GRAN ABSOLUTE AUTO 0.09 K/mm3 (0.00-0.10); IMMATURE GRAN PERCENT AUTO 1 % (0-1); LYMPHOCYTES ABSOLUTE AUTO 1.27 K/mm3 (0.84-5.20); LYMPHOCYTES PERCENT AUTO 11 % (21-46); MONOCYTES ABSOLUTE AUTO 0.74 K/mm3 (0.16-1.47); MONOCYTES PERCENT AUTO 7 % (4-13); Mean Corpuscular HGB 29.8 pg (26.0-34.0); Mean Corpuscular HGB Conc 34.8 g/dL (31.5-36.5); Mean Corpuscular Volume 86 fL (80-100); Mean Platelet Volume 9.6 fL (9.1-12.4); NEUTROPHILS ABSOLUTE AUTO 9.18 K/mm3 (1.96-9.15); NEUTROPHILS PERCENT AUTO 81 % (41-73); Platelet Count 253 K/mm3 (150-400); RDW Coefficient Variation 14.7 % (11.7-14.2); RDW Standard Deviation 45.5 fL (35.1-46.3); Red Blood Cell Count 4.73 M/mm3 (4.30-5.90)
[2024-07-17 09:26] LABS: Albumin, Blood 4.1 g/dL (3.4-5.0); Albumin/Globulin Ratio 1.1 (0.8-1.8); Bilirubin, Total 0.9 mg/dL (0.1-1.0); Bun/Creatinine Ratio 14.6 (12.0-20.0); Calcium, Blood 7.5 mg/dL (8.5-10.1); Creatinine, Blood 1.23 mg/dL (0.60-1.20); Globulin, Blood 3.6 g/dL (2.2-4.0); Magnesium, Blood 1.9 mg/dL (1.6-2.4); Total Protein, Blood 7.7 g/dL (6.4-8.2)
[2024-07-17] MEDS ORDERED: Potassium Chloride 20 MEQ TabCR PO ONE (10:40)
[2024-07-17] MEDS ORDERED: Metoprolol Tartrate 1 MG/ML 5 ML VIAL IV PRN (10:50)
[2024-07-17] MEDS ORDERED: COMPAZINE10 MG PO (14:03)
[2024-07-17 14:15] VITALS: BP 159/113
== END 2024-07-17 14:30 | disposition home or self-care (01) ==
LOC: ER 08:27
PROVIDERS: Emergency Medicine
DX: K52.9 Noninfective gastroenteritis and colitis, unspecified (principal); I48.92 Unspecified atrial flutter; E87.6 Hypokalemia; E86.1 Hypovolemia; I48.0 Paroxysmal atrial fibrillation; E11.9 Type 2 diabetes mellitus without complications; I25.2 Old myocardial infarction; I25.10 Atherosclerotic heart disease of native coronary artery without angina pectoris; G47.33 Obstructive sleep apnea (adult) (pediatric); I21.9 Acute myocardial infarction, unspecified; I10 Essential (primary) hypertension; Z88.5 Allergy status to narcotic agent; Z88.8 Allergy status to other drugs, medicaments and biological substances; Z79.899 Other long term (current) drug therapy; Z79.01 Long term (current) use of anticoagulants
CPT/HCPCS: 74177; 80053; 83605; 83690; 83735; 83880; 84484; 85025; 93005; 93010; 96361; 96374; 96375; 96376; 99285-25; A9270; J0780; J1171; J7030; Q9967

== ENCOUNTER 2024-09-24 15:38 | Emergency (ER) | payer OTHER ==
[~2024-09-24] VITALS: Ht 180.3 cm; Wt 112.0 kg
[~2024-09-24 15:38] MED LIST changes: +COMPAZINE10 MG PO
[2024-09-24] MEDS ORDERED: Metoprolol Tartrate 1 MG/ML 5 ML VIAL IV PRN (16:10)
[2024-09-24] MEDS ORDERED: NS 1,000 ML IV SCH (16:15)
[2024-09-24] MEDS ORDERED: Morphine Sulfate 10 MG/ML 1MLSYR IV ONE ×2 (16:15→19:05)
[2024-09-24 17:04] LABS: BASOPHILS ABSOLUTE AUTO 0.01 K/mm3 (0.00-0.23); BASOPHILS PERCENT AUTO 0 % (0-2); EOSINOPHILS PERCENT AUTO 0 % (0-6); Hemoglobin 15.1 g/dL (13.5-17.5); IMMATURE GRAN ABSOLUTE AUTO 0.08 K/mm3 (0.00-0.10); IMMATURE GRAN PERCENT AUTO 1 % (0-1); LYMPHOCYTES PERCENT AUTO 10 % (21-46); MONOCYTES ABSOLUTE AUTO 0.77 K/mm3 (0.16-1.47); MONOCYTES PERCENT AUTO 6 % (4-13); Mean Corpuscular HGB 29.8 pg (26.0-34.0); Mean Corpuscular Volume 83 fL (80-100); Mean Platelet Volume 9.8 fL (9.1-12.4); NEUTROPHILS ABSOLUTE AUTO 10.67 K/mm3 (1.96-9.15); NEUTROPHILS PERCENT AUTO 83 % (41-73); Platelet Count 262 K/mm3 (150-400); RDW Standard Deviation 44.9 fL (35.1-46.3); Red Blood Cell Count 5.06 M/mm3 (4.30-5.90); White Blood Cell Count 12.83 K/mm3 (4.00-11.30)
[2024-09-24 17:36] LABS: Albumin, Blood 4.4 g/dL (3.4-5.0); Albumin/Globulin Ratio 1.3 (0.8-1.8); Bilirubin, Total 1.1 mg/dL (0.1-1.0); Calcium, Blood 7.7 mg/dL (8.5-10.1); Creatinine, Blood 1.13 mg/dL (0.60-1.20); Globulin, Blood 3.3 g/dL (2.2-4.0); Potassium, Blood 3.1 mmol/L (3.5-5.5); Total Protein, Blood 7.7 g/dL (6.4-8.2)
[2024-09-24] MEDS ORDERED: Ondansetron HCl 2 MG / ML 2ML Vial IV ONE (18:25)
[2024-09-24] MEDS ORDERED: Metoprolol Succinate 50 MG TABCR PO ONE (19:05)
[2024-09-24 21:00] VITALS: BP 128/103
== END 2024-09-24 21:30 | disposition home or self-care (01) ==
LOC: ER 15:38
PROVIDERS: Physician Assistant
DX: R10.9 Unspecified abdominal pain (principal); E87.6 Hypokalemia; I48.91 Unspecified atrial fibrillation; Z88.5 Allergy status to narcotic agent; Z88.4 Allergy status to anesthetic agent; Z79.51 Long term (current) use of inhaled steroids; Z79.891 Long term (current) use of opiate analgesic; Z79.899 Other long term (current) drug therapy; Z79.1 Long term (current) use of non-steroidal anti-inflammatories (NSAID); Z79.01 Long term (current) use of anticoagulants; Z88.9 Allergy status to unspecified drugs, medicaments and biological substances
CPT/HCPCS: 74177; 80053; 83690; 85025; 93005; 93010; 96361; 96374-59; 96375; 96376; 99285-25; A9270; J2270; J2405; J7030; Q9967

== ENCOUNTER 2024-10-17 09:26 | Inpatient (IN) | payer OTHER ==
[~2024-10-17] VITALS: Ht 180.3 cm; Wt 93.8 kg
[~2024-10-17 09:26] MED LIST changes: -GABA400 PO; -XARELTO10 M1 PO
[2024-10-17] MEDS ORDERED: Metoprolol Tartrate 1 MG/ML 5 ML VIAL IV PRN (10:25)
[2024-10-17 10:49] LABS: Base Excess Venous 3.5 mmol/L; Bicarbonate Venous 28.7 mmol/L (24.0-30.0); PCO2 Venous 25.7 mmHg (38-42)
[2024-10-17 10:56] LABS: BASOPHILS ABSOLUTE AUTO 0.02 K/mm3 (0.00-0.23); BASOPHILS PERCENT AUTO 0 % (0-2); EOSINOPHILS ABSOLUTE AUTO 0.02 K/mm3 (0.00-0.68); EOSINOPHILS PERCENT AUTO 0 % (0-6); Hematocrit 39.6 % (37.0-53.0); Hemoglobin 14.1 g/dL (13.5-17.5); IMMATURE GRAN ABSOLUTE AUTO 0.04 K/mm3 (0.00-0.10); IMMATURE GRAN PERCENT AUTO 0 % (0-1); LYMPHOCYTES ABSOLUTE AUTO 1.42 K/mm3 (0.84-5.20); LYMPHOCYTES PERCENT AUTO 16 % (21-46); MONOCYTES ABSOLUTE AUTO 0.67 K/mm3 (0.16-1.47); MONOCYTES PERCENT AUTO 8 % (4-13); Mean Corpuscular HGB 29.3 pg (26.0-34.0); Mean Corpuscular HGB Conc 35.6 g/dL (31.5-36.5); Mean Corpuscular Volume 82 fL (80-100); Mean Platelet Volume 9.7 fL (9.1-12.4); NEUTROPHILS ABSOLUTE AUTO 6.74 K/mm3 (1.96-9.15); NEUTROPHILS PERCENT AUTO 76 % (41-73); Platelet Count 215 K/mm3 (150-400); RDW Coefficient Variation 14.8 % (11.7-14.2); RDW Standard Deviation 44.3 fL (35.1-46.3); Red Blood Cell Count 4.82 M/mm3 (4.30-5.90); White Blood Cell Count 8.91 K/mm3 (4.00-11.30)
[2024-10-17 11:25] LABS: Albumin, Blood 3.5 g/dL (3.4-5.0); Bilirubin, Total 1.1 mg/dL (0.1-1.0); Bun/Creatinine Ratio 11.3 (12.0-20.0); Calcium, Blood 7.1 mg/dL (8.5-10.1); Creatinine, Blood 0.89 mg/dL (0.60-1.20); Globulin, Blood 3.6 g/dL (2.2-4.0); Potassium, Blood 2.5 mmol/L (3.5-5.5); Total Protein, Blood 7.1 g/dL (6.4-8.2)
[2024-10-17] MEDS ORDERED: Potassium Chloride 20 MEQ TabCR PO ONE (12:00)
[2024-10-17] MEDS ORDERED: Potassium Chl 20MEQ/Water100ML 100 ML IV ONE (12:00)
[2024-10-17] MEDS ORDERED: METO50ER PO (12:09)
[2024-10-17] MEDS ORDERED: NS 1,000 ML IV SCH (12:10)
[2024-10-17] MEDS ORDERED: TAMS.4ER PO (12:10)
[2024-10-17] MEDS ORDERED: Droperidol 5 mg/2 ml Vial IV ONE ×2 (13:40→21:00)
[2024-10-17] MEDS ORDERED: Scopolamine Hydrobromide Patch TOP SCH (14:00)
[2024-10-17] MEDS ORDERED: Aspirin 325 MG Tab PO ONE (14:00)
[2024-10-17] MEDS ORDERED: Morphine Sulfate 4 MG/1 ML Injection IV ONE (14:00)
[2024-10-17] MEDS ORDERED: Enoxaparin 100 MG/ML 1ML SYR SC SCH (14:00)
--- NOTE | 2024-10-17 14:10 | NUR ---
ARRIVAL TO PCU: Patient arrived to pcu via gurney and was able to ambulate to the bed. he is alert and oriented x4. Reports 8/10 lower back pain, he is medicated with 2 mg Morphine. HR irreg, he is in A-Flutter at 110. Blood pressure stable. 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 BT+, abd distended and non-tender. He has been nauseous and vomited in the ER, shortly after he arrived to PCU he had 2 episodes of bile colored emesis, Inapsine given IV and scolopamine patch placed. PPP, he has 1+ pitting edema to BLE. He has a stage 2 pressure ulcer to his left top buttock-Dr. Ryann Peterson came to the bedside to assess and wound care orders placed. Patient is resting comfortably at this time, call light in reach.
[2024-10-17 14:12] VITALS: BP 112/98
[2024-10-17] MEDS ORDERED: Magnesium Sul 4 GM/Water100 ML 100 ML IV ONE (14:45)
[2024-10-17] MEDS ORDERED: Potassium Chloride 40 MEQ in NS 250 ML IV ONE (14:55)
[2024-10-17] MEDS ORDERED: FLUTICASONE-SA1 EAC1 INH (15:52)
[2024-10-17] MEDS ORDERED: FLU VACC TS2024-25(6MOS UP)/PF 45 MCG/0.5 ML SYRINGE IM ONE (16:00)
[2024-10-17] MEDS ORDERED: Aspirin 300 MG Supp PR ONE (16:00)
[2024-10-17] MEDS ORDERED: JARDIANCE10 MG PO (16:03)
[2024-10-17] MEDS ORDERED: ZOCOR20 MG PO (16:04)
[2024-10-17] MEDS ORDERED: Aspir 8181 MG PO (16:06)
[2024-10-17] MEDS ORDERED: FISH OIL 1,0001 EA10 PO (16:07)
[2024-10-17] MEDS ORDERED: METF500 PO (16:18)
[2024-10-17] MEDS ORDERED: METF500C PO (16:19)
[2024-10-17] MEDS ORDERED: LACT PO (16:21)
[2024-10-17] MEDS ORDERED: AMLO5 PO (16:22)
[2024-10-17] MEDS ORDERED: VITAMIN D5000 UNIT PO (16:23)
[2024-10-17 16:24] LABS: CHOL/HDL RATIO 3.3; Cholesterol 153 mg/dL (50-200); HDL Cholesterol 46 mg/dL (>39); LDL/HDL RATIO 1.8; Low Density Lipoprotein Chol 81 mg/dL (0-110); Triglycerides 131 mg/dL (30-160); Very Low Density Lipoprot Chol 26 mg/dL (6-32)
--- NOTE | 2024-10-17 16:26 | NUR ---
Update: Patients magnesium was critically low, 4gm rider currently infusing. Patients K+ was 2.2 he threw up his oral potassium in the ER, currently 40 meq bag is infusing. Patient is resting comfortably in bed after a bath and wound care. Wound was cleansed, metahoney placed, and Mepilex placed. Call light in reach.
[2024-10-17] MEDS ORDERED: CALCIUM GLUC IN NACL, ISO-OSM 100 ML IV ONE ×2 (17:10→23:05)
[2024-10-17] MEDS ORDERED: Morphine Sulfate 4 MG/1 ML Injection IV PRN (18:00)
--- NOTE | 2024-10-17 18:34 | NUR ---
Summary: Patient arrived from the ER around 1500. He has been alert and oriented x4. When he arrived he C/O 8/10 chronic back pain, he was medicated with IV Morphine-this brought his pain down to a 4/10. He has been in A-Flutter with a rate ranging from 110-140s, IV Metoprolol has been effective. VSS. LS CTA, biox is WNL on RA, he does state he has been diagnosed with IDALMIS and cannot tolerate a C-Pap. BT+, abd is distended, non-tender to light palpation. He states for the last couple of days he has been having nausea and vomiting. He vomited twice for me, this resolved after a dose of inapsine. Patient has a stage 2 pressure injury to his left upper buttock, pictures have been taken and wound care orders are in. He also has some breakdown in his [id number]-[id number] cream was applied. His potassium was 2.2 on arrival, he has K-Riders infusing. Magnesium is also low at 1.1-4gm total given this shift. His ca+ was low, calcium gluconate has been ordered. He is resting comfortably at this time. Call light in reach.
[2024-10-17] MEDS ORDERED: Potassium Chloride 20 MEQ in NS 90 ML IV ONE (19:00)
[2024-10-17] MEDS ORDERED: HYDROmorphone HCl/Pf 1MG SYR IV ONE (19:40)
[2024-10-17 19:53] VITALS: BP 137/86
[2024-10-17] MEDS ORDERED: Atorvastatin 40 MG Tab PO SCH (21:00)
[2024-10-17] MEDS ORDERED: Miconazole Nitrate 28 GM CREAM..G. TOP SCH (21:00)
[2024-10-17] MEDS ORDERED: Morphine Sulfate 15 MG TABCR PO SCH (21:00)
[2024-10-17 21:28] LABS: Calcium, Blood 6.8 mg/dL (8.5-10.1); Creatinine, Blood 1.09 mg/dL (0.60-1.20); Magnesium, Blood 2.2 mg/dL (1.6-2.4); Potassium, Blood 2.8 mmol/L (3.5-5.5)
[2024-10-17] MEDS ORDERED: Potassium Chloride 20 MEQ/15 ML UDC PO ONE (23:35)
[2024-10-18] VITALS (7 sets, daily range): BP systolic 108–149; BP diastolic 74–108
[2024-10-18] MEDS ORDERED: Potassium Chloride 40 MEQ in NS 250 ML IV ONE ×3 (00:25→15:00)
[2024-10-18] MEDS ORDERED: Droperidol 5 mg/2 ml Vial IV PRN (01:35)
--- NOTE | 2024-10-18 01:52 | NUR ---
LATE NOTE. ADMINISTERED PO POTASSIUM BUT PATIENT UNFORTUNATELY VOMITED THE POTASSIUM BACK UP VERY SHORTLY AFTER. SPOKE WITH DR. ORTEGA WHO ORDERED 40 MEQ POTASSIUM CHLORIDE IV WHICH IS CURRENTLY INFUSING. CONTINUING TO MONITOR.
[2024-10-18 04:10] LABS: BASOPHILS ABSOLUTE AUTO 0.02 K/mm3 (0.00-0.23); BASOPHILS PERCENT AUTO 0 % (0-2); EOSINOPHILS ABSOLUTE AUTO 0.05 K/mm3 (0.00-0.68); EOSINOPHILS PERCENT AUTO 1 % (0-6); Hematocrit 35.4 % (37.0-53.0); Hemoglobin 12.9 g/dL (13.5-17.5); IMMATURE GRAN ABSOLUTE AUTO 0.03 K/mm3 (0.00-0.10); IMMATURE GRAN PERCENT AUTO 0 % (0-1); LYMPHOCYTES PERCENT AUTO 16 % (21-46); MONOCYTES ABSOLUTE AUTO 0.97 K/mm3 (0.16-1.47); MONOCYTES PERCENT AUTO 11 % (4-13); Mean Corpuscular HGB 30.1 pg (26.0-34.0); Mean Corpuscular HGB Conc 36.4 g/dL (31.5-36.5); Mean Corpuscular Volume 83 fL (80-100); Mean Platelet Volume 9.6 fL (9.1-12.4); NEUTROPHILS ABSOLUTE AUTO 6.69 K/mm3 (1.96-9.15); NEUTROPHILS PERCENT AUTO 72 % (41-73); Platelet Count 221 K/mm3 (150-400); RDW Coefficient Variation 15.1 % (11.7-14.2); RDW Standard Deviation 46.1 fL (35.1-46.3); Red Blood Cell Count 4.28 M/mm3 (4.30-5.90); White Blood Cell Count 9.26 K/mm3 (4.00-11.30)
[2024-10-18 04:36] LABS: Alanine Aminotransfer (ALT/SGP 26 U/L (12-78); Albumin/Globulin Ratio 0.9 (0.8-1.8); Alk Phos 89 U/L (50-136); Anion Gap 11 mmol/L (3-11); Aspartate Aminotrans (AST/SGOT 23 U/L (12-37); Bilirubin, Total 0.7 mg/dL (0.1-1.0); Blood Urea Nitrogen 12 mg/dL (8-24); Bun/Creatinine Ratio 12.1 (12.0-20.0); CHOL/HDL RATIO 3.7; CO2, Blood 26 mmol/L (21-32); Chloride, Blood 103 mmol/L (98-108); Cholesterol 161 mg/dL (50-200); Creatinine, Blood 0.99 mg/dL (0.60-1.20); Globulin, Blood 3.2 g/dL (2.2-4.0); Glomerular Filtration Rate 79 (60-); Glucose, Blood 108 mg/dL (70-99); HDL Cholesterol 44 mg/dL (>39); Low Density Lipoprotein Chol 87 mg/dL (0-110); Phosphorus, Blood 2.2 mg/dL (2.5-4.9); Potassium, Blood 3.1 mmol/L (3.5-5.5); Sodium, Blood 137 mmol/L (136-145); Thyroid Stimulating Hormone 0.955 uIU/mL (0.360-4.800); Total Protein, Blood 6.2 g/dL (6.4-8.2); Triglycerides 150 mg/dL (30-160); Very Low Density Lipoprot Chol 30 mg/dL (6-32)
--- NOTE | 2024-10-18 05:34 | NUR ---
SHIFT SUMMARY. SHIFT HAS GONE MOSTLY WELL OVERALL. PT AOX4, PLEASANT, COOPERATIVE WITH CARE, ABLE TO MAKE NEEDS KNOWN. PAIN HAS BEEN ADEQUATELY MANAGED THROUGHOUT SHIFT. PT WAS EXPERIENCING SEVERE NAUSEA EARLIER IN SHIFT WITH SOME INTERMITTENT VOMITING THAT WOULD COME AND GO. PT SYMPTOMS HAVE BEEN IMPROVED SINCE INAPSINE HAS BEEN ADMINISTERED. VITALS STABLE OUTSIDE OF SOMEWHAT HIGH DBP THROUGHOUT SHIFT. HAS MAINTAINED ADEQUATE SATURATION ON ROOM AIR. RUNNING AFLUTTER THROUGHOUT SHIFT WITH RATE MOSTLY SETTLING IN THE 100s. FEW TIMES, TACHY UP TO 130s-140s AND REQUIRED IV LOPRESSOR 5 MG TO CORRECT. THUS FAR LOPRESSOR HAS BEEN SUFFICIENT FOR RATE CONTROL. ELECTROLYTES RUNNING THROUGHOUT ALMOST ENTIRE SHIFT TO CORRECT ELECTROLYTE IMBALANCES. BED LOCKED IN LOWEST POSITION. CALL LIGHT LEFT WITHIN REACH. CONTINUING TO MONITOR.
[2024-10-18] MEDS ORDERED: NS 250 ML IV PRN (05:45)
[2024-10-18] MEDS ORDERED: Prochlorperazine Edisylate 10 mg Vial IV PRN ×2 (06:25→16:00)
--- NOTE | 2024-10-18 06:41 | NUR ---
spoke with Dr. Charles regarding sporadically high heart rate settling in the 130-140s range at times. notified that this RN has given iv lopressor 4 times this shift thus far. inquired about further hr management. Dr. Charles ordered 25 mg po metoprolol daily to be changed to 37.5 mg po metoprolol bid. order input. continuing to monitor.
[2024-10-18] MEDS ORDERED: Tamsulosin HCl 0.4 MG Cap PO SCH (09:00)
[2024-10-18] MEDS ORDERED: DULoxetine HCL 20 MG Cap DR PO SCH (09:00)
[2024-10-18] MEDS ORDERED: Metoprolol Succinate 25 MG TABCR PO SCH ×2 (09:00)
[2024-10-18] MEDS ORDERED: CALCIUM GLUC IN NACL, ISO-OSM 100 ML IV ONE (09:30)
[2024-10-18] MEDS ORDERED: Magnesium Sulf 2 GM/Water 50ML 50 ML IV ONE (11:35)
--- NOTE | 2024-10-18 12:47 | NUR ---
"Spiritual Care | Pt. Request Pt. is awake in bed and he welcomed my visit. Pt. is pleasant. Matters of alondra and belief are addressed early in the conversation. Pt. shared about his upbringing and how it has influenced him both positively and negatively. Listen with interest and empathy. Pt. displayed evidence of trust and respect. Prayed with the Pt. Pt. verbalized gratitude for the spiritual care visit."
[2024-10-18 14:24] LABS: Calcium, Blood 7.7 mg/dL (8.5-10.1); Potassium, Blood 2.9 mmol/L (3.5-5.5)
--- NOTE | 2024-10-18 18:02 | NUR ---
End of Shift Pt A&O x4. VSS. Spo2 > 92% on RA. Monitor showing aflutter, HR mostly 130s. HR 110s after PRN IV lopressor given per emar x2 this shift. Pt SBA to BSC & back to bed. Pt w/ loose stool this shift. Pt able to reposition self but needs encouraged to make frequent movements. Skin breakdown noted to buttocks. IV K Cl infusing per emar.
[2024-10-18] MEDS ORDERED: Potassium Chloride 20 MEQ in NS 90 ML IV ONE (19:00)
[2024-10-18] MEDS ORDERED: Scopolamine Hydrobromide Patch TOP SCH (22:45)
[2024-10-19] VITALS (7 sets, daily range): BP systolic 121–154; BP diastolic 89–113
[2024-10-19 04:52] LABS: BASOPHILS ABSOLUTE AUTO 0.01 K/mm3 (0.00-0.23); BASOPHILS PERCENT AUTO 0 % (0-2); EOSINOPHILS PERCENT AUTO 2 % (0-6); Hematocrit 37.6 % (37.0-53.0); Hemoglobin 13.2 g/dL (13.5-17.5); IMMATURE GRAN ABSOLUTE AUTO 0.03 K/mm3 (0.00-0.10); IMMATURE GRAN PERCENT AUTO 0 % (0-1); LYMPHOCYTES ABSOLUTE AUTO 1.08 K/mm3 (0.84-5.20); LYMPHOCYTES PERCENT AUTO 11 % (21-46); MONOCYTES ABSOLUTE AUTO 1.06 K/mm3 (0.16-1.47); MONOCYTES PERCENT AUTO 11 % (4-13); Mean Corpuscular HGB 29.5 pg (26.0-34.0); Mean Corpuscular HGB Conc 35.1 g/dL (31.5-36.5); Mean Corpuscular Volume 84 fL (80-100); Mean Platelet Volume 9.7 fL (9.1-12.4); NEUTROPHILS PERCENT AUTO 76 % (41-73); Platelet Count 218 K/mm3 (150-400); RDW Coefficient Variation 15.3 % (11.7-14.2); RDW Standard Deviation 46.7 fL (35.1-46.3); Red Blood Cell Count 4.48 M/mm3 (4.30-5.90); White Blood Cell Count 9.78 K/mm3 (4.00-11.30)
[2024-10-19 05:21] LABS: Albumin, Blood 3.3 g/dL (3.4-5.0); Bilirubin, Total 0.9 mg/dL (0.1-1.0); Bun/Creatinine Ratio 13.3 (12.0-20.0); Calcium, Blood 7.1 mg/dL (8.5-10.1); Creatinine, Blood 0.9 mg/dL (0.60-1.20); Globulin, Blood 3.2 g/dL (2.2-4.0); Potassium, Blood 2.9 mmol/L (3.5-5.5); Total Protein, Blood 6.5 g/dL (6.4-8.2)
[2024-10-19] MEDS ORDERED: CALCIUM GLUC IN NACL, ISO-OSM 100 ML IV ONE (05:55)
[2024-10-19] MEDS ORDERED: Potassium Chloride 20 MEQ TabCR PO ONE ×2 (05:55→18:00)
[2024-10-19] MEDS ORDERED: Potassium Chl 20MEQ/Water100ML 100 ML IV ONE (05:55)
[2024-10-19] MEDS ORDERED: Magnesium Sulf 2 GM/Water 50ML 50 ML IV ONE (08:10)
[2024-10-19] MEDS ORDERED: Metoprolol Succinate 50 MG TABCR PO SCH ×3 (09:00→21:00)
[2024-10-19] MEDS ORDERED: Potassium Phosphate Dibasic 20 MM in Dextrose 5% 500 ML IV STA (09:45)
[2024-10-19] MEDS ORDERED: Metoprolol Succinate 50 MG TABCR PO ONE (13:00)
--- NOTE | 2024-10-19 17:13 | NUR ---
Shift Summary Pt alert and oriented x4; calm and cooperative with care. Pt resting in bed. up with 1 person assist. Pt reports chronic back pain 4-12/16; medicated with scheduled ms contin. Pt denies chest pain/pressure, sob, nausea, and dizziness. Pt reports chronic neuropathy. Spo2 >90% on ra. Abd distended, nontender, + bt t/o. Edema noted to ble. Other vss. Pt receiving multiple electrolyte replacement t/o shift. Will continue to monitor.
[2024-10-19 17:49] LABS: Calcium, Blood 7.5 mg/dL (8.5-10.1); Creatinine, Blood 1.15 mg/dL (0.60-1.20); Potassium, Blood 3.4 mmol/L (3.5-5.5)
[2024-10-19] MEDS ORDERED: Rivaroxaban 10 MG Tab PO SCH (18:00)
[2024-10-19] MEDS ORDERED: Sacubitril/Valsartan 24 MG-26 MG Tab PO SCH (21:00)
[2024-10-19 21:23] LABS: Bun/Creatinine Ratio 13.7 (12.0-20.0); Calcium, Blood 7.6 mg/dL (8.5-10.1); Creatinine, Blood 1.17 mg/dL (0.60-1.20); Potassium, Blood 3.2 mmol/L (3.5-5.5)
[2024-10-19] MEDS ORDERED: Potassium Chloride 40 MEQ in NS 250 ML IV ONE (21:35)
[2024-10-19 21:51] LABS: Phosphorus, Blood 3.8 mg/dL (2.5-4.9)
[2024-10-20] VITALS (7 sets, daily range): BP systolic 119–139; BP diastolic 79–103
[2024-10-20 06:42] LABS: Hematocrit 38.9 % (37.0-53.0); Hemoglobin 13.4 g/dL (13.5-17.5); Mean Corpuscular HGB 29.6 pg (26.0-34.0); Mean Corpuscular HGB Conc 34.4 g/dL (31.5-36.5); Mean Corpuscular Volume 86 fL (80-100); Mean Platelet Volume 9.5 fL (9.1-12.4); Platelet Count 266 K/mm3 (150-400); RDW Coefficient Variation 15.3 % (11.7-14.2); RDW Standard Deviation 48.4 fL (35.1-46.3); Red Blood Cell Count 4.52 M/mm3 (4.30-5.90); White Blood Cell Count 8.99 K/mm3 (4.00-11.30)
[2024-10-20] MEDS ORDERED: Spironolactone 25 MG Tab PO SCH (07:00)
[2024-10-20] MEDS ORDERED: Sacubitril/Valsartan 24 MG-26 MG Tab PO SCH (07:00)
[2024-10-20 07:01] LABS: Bun/Creatinine Ratio 13.8 (12.0-20.0); Calcium, Blood 7.3 mg/dL (8.5-10.1); Creatinine, Blood 1.3 mg/dL (0.60-1.20); Magnesium, Blood 1.8 mg/dL (1.6-2.4); Potassium, Blood 3.8 mmol/L (3.5-5.5)
[2024-10-20] MEDS ORDERED: Spironolactone 12.5 MG TAB PO SCH (09:00)
[2024-10-20] MEDS ORDERED: Aspirin 81 MG Chew PO SCH (09:00)
[2024-10-20] MEDS ORDERED: Magnesium Sulf 2 GM/Water 50ML 50 ML IV ONE (15:00)
--- NOTE | 2024-10-20 16:54 | NUR ---
SHIFT SUMMARY PT A&Ox3, CALLS AND COMMUNICATES NEEDS APPROPRIATELY. FORGETFUL AND POOR HISTORIAN AT TIMES. BP STABLE, AFLUTTER 100-130's, DENIES CP/PRESSURE, REPORTS PALITATIONS WHEN HR 130's. SpO2> 92% RA, DENIES SOB. CONTINENT OF URINE AND BOWEL, 1 ASSIST TO BSC, IND WITH URINAL, LOW URINE OUTPUT. MANAGED CHRONIC PAIN PER EMAR. PT REPOSITIONS SELF IN BED. NO OTHER EVENTS, WILL REPORT TO ONCOMING RN.
[2024-10-20] MEDS ORDERED: CALCIUM GLUC IN NACL, ISO-OSM 100 ML IV ONE (18:10)
[2024-10-20 18:57] LABS: Bun/Creatinine Ratio 15.9 (12.0-20.0); Calcium, Blood 7.3 mg/dL (8.5-10.1); Creatinine, Blood 1.13 mg/dL (0.60-1.20); Potassium, Blood 3.3 mmol/L (3.5-5.5)
[2024-10-20] MEDS ORDERED: Potassium Chloride 40 MEQ in NS 250 ML IV STA (20:18)
[2024-10-20 21:35] LABS: Magnesium, Blood 2.1 mg/dL (1.6-2.4)
[2024-10-21] VITALS (8 sets, daily range): BP systolic 106–145; BP diastolic 74–105
[2024-10-21 02:47] LABS: Bun/Creatinine Ratio 15.5 (12.0-20.0); Calcium, Blood 7.6 mg/dL (8.5-10.1); Creatinine, Blood 1.16 mg/dL (0.60-1.20)
[2024-10-21 05:22] LABS: Hematocrit 36.8 % (37.0-53.0); Hemoglobin 12.7 g/dL (13.5-17.5); Mean Corpuscular HGB 29.7 pg (26.0-34.0); Mean Corpuscular HGB Conc 34.5 g/dL (31.5-36.5); Mean Corpuscular Volume 86 fL (80-100); Mean Platelet Volume 9.7 fL (9.1-12.4); Platelet Count 205 K/mm3 (150-400); RDW Coefficient Variation 15.2 % (11.7-14.2); RDW Standard Deviation 47.9 fL (35.1-46.3); Red Blood Cell Count 4.27 M/mm3 (4.30-5.90); White Blood Cell Count 8.69 K/mm3 (4.00-11.30)
--- NOTE | 2024-10-21 05:23 | NUR ---
SHIFT SUMMARY PT ALERT AND ORIENTED, INTERMITTENTLY IRRITABLE WITH SOME STAFF. FORGETFUL. CONVERSATION INTERMITTENTLY INAPPROPRIATE TO SITUATION. PT'S HEART RATE HAS BEEN BETTER CONTROLLED THIS SHIFT WITH HR 90-100'S. SOME HTN NOTED, SBP MAX 140'S. PT IS OLIGURIC. SEE I&O'S. THIS RN OBSERVED PT HAVING TROUBLES INITIATING STREAM. ELECTROLYTE IMBALANCES REMAIN. POTASSIUM REPLACED THIS EVENING. AM LABS PENDING AT THIS TIME.
[2024-10-21 05:56] LABS: Albumin, Blood 3.1 g/dL (3.4-5.0); Albumin/Globulin Ratio 1.1 (0.8-1.8); Bilirubin, Total 0.7 mg/dL (0.1-1.0); Bun/Creatinine Ratio 16.3 (12.0-20.0); Calcium, Blood 7.2 mg/dL (8.5-10.1); Creatinine, Blood 1.04 mg/dL (0.60-1.20); Globulin, Blood 2.8 g/dL (2.2-4.0); Magnesium, Blood 1.8 mg/dL (1.6-2.4); Potassium, Blood 3.1 mmol/L (3.5-5.5); Total Protein, Blood 5.9 g/dL (6.4-8.2)
[2024-10-21] MEDS ORDERED: Albuterol 2.5 MG/3 ML VIAL INH PRN (07:55)
[2024-10-21] MEDS ORDERED: Gabapentin 400 MG Cap PO PRN (07:55)
[2024-10-21] MEDS ORDERED: Pantoprazole Sodium 40 MG Tab PO SCH (08:02)
[2024-10-21] MEDS ORDERED: Mometasone/Formoterol MDI 200/5 mcg 13 GM INH SCH (08:05)
[2024-10-21] MEDS ORDERED: CALCIUM GLUC IN NACL, ISO-OSM 100 ML IV SCH (08:50)
[2024-10-21] MEDS ORDERED: Cholecalciferol 1000 Unit Tablet (=25MCG) PO SCH ×2 (09:00)
[2024-10-21] MEDS ORDERED: Empagliflozin 10 MG TAB PO SCH (09:00)
[2024-10-21] MEDS ORDERED: Potassium Chloride 20 MEQ TabCR PO ONE (09:00)
[2024-10-21] MEDS ORDERED: Potassium Chloride 20 MEQ/15 ML UDC PO SCH (09:00)
[2024-10-21] MEDS ORDERED: Banana Flakes/Tos 1 EA Powder Pack PO SCH (13:00)
[2024-10-21 15:34] LABS: Albumin/Globulin Ratio 1.1 (0.8-1.8); Bilirubin, Total 0.6 mg/dL (0.1-1.0); Bun/Creatinine Ratio 15.2 (12.0-20.0); Calcium, Blood 8.1 mg/dL (8.5-10.1); Creatinine, Blood 1.05 mg/dL (0.60-1.20); Globulin, Blood 2.8 g/dL (2.2-4.0); Magnesium, Blood 1.8 mg/dL (1.6-2.4); Phosphorus, Blood 3.7 mg/dL (2.5-4.9); Potassium, Blood 3.2 mmol/L (3.5-5.5); Total Protein, Blood 5.8 g/dL (6.4-8.2)
[2024-10-21] MEDS ORDERED: Mag Sulfate 1 GM/D5% 100ML 100 ML IV STA (16:44)
[2024-10-21] MEDS ORDERED: Potassium Chloride 40 MEQ in NS 250 ML IV ONE (16:45)
--- NOTE | 2024-10-21 18:31 | NUR ---
SHIFT SUMMARY PT A&Ox3, CALLS AND COMMUNICATES NEEDS APPROPRIATELY. FORGETFUL AND POOR HISTORIAN AT TIMES. BP STABLE, AFLUTTER 90-140's, DENIES CP/PRESSURE, REPORTS PALITATIONS WHEN HR 140's. SpO2> 92% RA, DENIES SOB. CONTINENT OF URINE AND BOWEL, 1 ASSIST TO BSC, IND WITH URINAL, DIARRHEA AND LOW URINE OUTPUT. MANAGED CHRONIC PAIN PER EMAR. PT REPOSITIONS SELF IN BED. NO OTHER EVENTS, WILL REPORT TO ONCOMING RN.
[2024-10-21] MEDS ORDERED: Magnesium Oxide 400 MG Tab PO SCH (21:00)
[2024-10-21] MEDS ORDERED: Metoprolol Succinate 50 MG TABCR PO SCH (21:00)
[2024-10-21] MEDS ORDERED: Calcium Citrate 950 MG Tab PO SCH (21:00)
--- NOTE | 2024-10-22 02:52 | NUR ---
PATIENT HAD A 6 BEAT RUN OF V-TACH, DISCUSSED WITH DR. CRUZ THAT PATIENT HAD 6 BEAT RUN OF V-TACH-NO NEW ORDERS AT THIS TIME, CONTINUE CARE.
[2024-10-22 04:27] VITALS: BP 114/84
--- NOTE | 2024-10-22 04:38 | NUR ---
SHIFT SUMMARY PATIENT IS ALERT TO SELF, MONTH AND PLACE; PATIENT KNOWS HE IS IN THE HOSPITAL. PATEINT APPEARS TO BE MORE ALERT THIS MORNING THAN AT THE BEGINNING OF SHIFT, ANSWERING MORE QUESTIONS AND COMMUNICATING WITH STAFF. PATIENT IS BEDREST AT THIS TIME; AND REPOSITIONED T/O SHIFT. PATIENT RESTED WELL THIS SHIFT. BED IS LOCKED IN THE LOWEST POSITION WITH CALL LIGHT IN REACH. BED ALARM IS ON FOR SAFETY. CARE IS ONGOING.
[2024-10-22 04:41] LABS: BASOPHILS ABSOLUTE AUTO 0.01 K/mm3 (0.00-0.23); BASOPHILS PERCENT AUTO 0 % (0-2); EOSINOPHILS PERCENT AUTO 6 % (0-6); Hematocrit 35.6 % (37.0-53.0); Hemoglobin 12.3 g/dL (13.5-17.5); IMMATURE GRAN ABSOLUTE AUTO 0.01 K/mm3 (0.00-0.10); IMMATURE GRAN PERCENT AUTO 0 % (0-1); LYMPHOCYTES ABSOLUTE AUTO 1.24 K/mm3 (0.84-5.20); LYMPHOCYTES PERCENT AUTO 19 % (21-46); MONOCYTES PERCENT AUTO 12 % (4-13); Mean Corpuscular HGB 29.6 pg (26.0-34.0); Mean Corpuscular HGB Conc 34.6 g/dL (31.5-36.5); Mean Corpuscular Volume 86 fL (80-100); Mean Platelet Volume 9.9 fL (9.1-12.4); NEUTROPHILS ABSOLUTE AUTO 4.22 K/mm3 (1.96-9.15); NEUTROPHILS PERCENT AUTO 63 % (41-73); Platelet Count 226 K/mm3 (150-400); RDW Standard Deviation 46.8 fL (35.1-46.3); Red Blood Cell Count 4.16 M/mm3 (4.30-5.90); White Blood Cell Count 6.68 K/mm3 (4.00-11.30)
[2024-10-22 05:03] LABS: Albumin/Globulin Ratio 1.1 (0.8-1.8); Bilirubin, Total 0.6 mg/dL (0.1-1.0); Bun/Creatinine Ratio 13.8 (12.0-20.0); Calcium, Blood 7.7 mg/dL (8.5-10.1); Creatinine, Blood 1.16 mg/dL (0.60-1.20); Globulin, Blood 2.8 g/dL (2.2-4.0); Magnesium, Blood 1.7 mg/dL (1.6-2.4); Phosphorus, Blood 3.8 mg/dL (2.5-4.9); Potassium, Blood 3.6 mmol/L (3.5-5.5); Total Protein, Blood 5.8 g/dL (6.4-8.2)
[2024-10-22] MEDS ORDERED: Potassium Chloride 20 MEQ TabCR PO ONE (06:00)
[2024-10-22] MEDS ORDERED: Magnesium Sulf 2 GM/Water 50ML 50 ML IV SCH (06:00)
[2024-10-22] MEDS ORDERED: CALCIUM GLUC IN NACL, ISO-OSM 100 ML IV ONE (09:20)
[2024-10-22 11:47] VITALS: BP 154/107
[2024-10-22 15:32] LABS: Bun/Creatinine Ratio 12.9 (12.0-20.0); Calcium, Blood 8.2 mg/dL (8.5-10.1); Creatinine, Blood 1.16 mg/dL (0.60-1.20); Magnesium, Blood 2.3 mg/dL (1.6-2.4); Potassium, Blood 3.9 mmol/L (3.5-5.5)
[2024-10-22 15:42] VITALS: BP 116/92
[2024-10-22] MEDS ORDERED: Calcium Chloride 10% 1,000 MG in NS 50 ML IV ONE (15:50)
--- NOTE | 2024-10-22 17:07 | NUR ---
SHIFT SUMMARY PT A&Ox3, CALLS AND COMMUNICATES NEEDS APPROPRIATELY. FORGETFUL AND POOR HISTORIAN AT TIMES. BP STABLE, AFLUTTER 90-130's, DENIES CP/PRESSURE, REPORTS PALITATIONS WHEN HR 130's. SpO2> 92% RA, DENIES SOB. CONTINENT OF URINE AND BOWEL, 1 ASSIST TO BSC, IND WITH URINAL, DIARRHEA AND LOW URINE OUTPUT. MANAGED CHRONIC PAIN PER EMAR. PT REPOSITIONS SELF IN BED. NO OTHER EVENTS, WILL REPORT TO ONCOMING RN.
[2024-10-22 20:03] VITALS: BP 138/97
[2024-10-23 00:40] VITALS: BP 139/107
[2024-10-23 04:45] VITALS: BP 126/95
[2024-10-23 05:12] LABS: Hemoglobin 12.4 g/dL (13.5-17.5); Mean Corpuscular HGB 29.4 pg (26.0-34.0); Mean Corpuscular HGB Conc 34.4 g/dL (31.5-36.5); Mean Corpuscular Volume 85 fL (80-100); Mean Platelet Volume 9.5 fL (9.1-12.4); Platelet Count 252 K/mm3 (150-400); RDW Coefficient Variation 15.2 % (11.7-14.2); RDW Standard Deviation 46.9 fL (35.1-46.3); Red Blood Cell Count 4.22 M/mm3 (4.30-5.90)
[2024-10-23 05:30] LABS: Bun/Creatinine Ratio 16.2 (12.0-20.0); Calcium, Blood 8.2 mg/dL (8.5-10.1); Creatinine, Blood 0.99 mg/dL (0.60-1.20); Magnesium, Blood 2.2 mg/dL (1.6-2.4); Potassium, Blood 3.7 mmol/L (3.5-5.5)
[2024-10-23 07:25] VITALS: BP 121/92
--- NOTE | 2024-10-23 07:39 | NUR ---
SHIFT SUMMARY: PT IS A&OX3, FORGETFUL AT TIMES, BUT COOPERATIVE WITH CARE. VSS ON RA. HR REMAINS IN AFLUTTER 90'S-TO AN OCCASIONAL 130. C/O CHRONIC PAIN TO HIS BACK, ADMINISTERED SCHEDULED MS CONTIN AND PRN GABAPENTIN. TOLERATING A HEART HEALTHY DIET. X1 ASSIST WITH FWW. USING URINAL INDEPENDENTLY IN BED. VOIDING SMALL AMOUNTS OF DARK YELLOW URINE. NO BM THIS SHIFT. BED IN LOWEST POSITION, CALL LIGHT WITHIN REACH. CALLS APPROPRIATELY AND IS ABLE TO ADVOCATE NEEDS EFFECTIVELY.
--- NOTE | 2024-10-23 10:07 | NUR ---
MORNING SUMMARY THE PT IS A&OX4, 1P ASSIST W/ FWW, AND HE WAS UP IN THE CHAIR FOR BREAKFAST. THE PT DOES GET FATIGUED AND HAS SOME DYSPNEA AFTER ACITIVTY. HE USES THE URINAL AT BEDSIDE IND, AND WAS ABLE TO TRANSFER TO THE BATHROOM. ON TELE HE IS AFIB/AFLUTTER 80'S-130'S, HR UP W/ ACTIVITY. BP STABLE. HE REMAINS ON RA W/ SP02 >93%. DR. MALLOY ROUNDED ON THE PT THIS MRONIGN AND PLANS TO DISCHARGE THE PT W/ HOME HEALTH. SEE NOTES FOR UPDATES.
[2024-10-23 11:30] VITALS: BP 140/110
[2024-10-23 14:03] VITALS: BP 115/103
[2024-10-23] MEDS ORDERED: LIPITOR80 MG PO (14:04)
[2024-10-23] MEDS ORDERED: BANATROL PLUS1 EAC1 PO (14:05)
[2024-10-23] MEDS ORDERED: MAGNESIUM OXID400 M1 PO (14:06)
[2024-10-23] MEDS ORDERED: CALCIUM CITRATE PO (14:06)
[2024-10-23] MEDS ORDERED: TRANSDERM-SCOP1 EA10 TD (14:07)
[2024-10-23] MEDS ORDERED: ENTRESTO 24 MG1 EAC2 PO (14:07)
[2024-10-23] MEDS ORDERED: SPIR25 PO (14:08)
[2024-10-23] MEDS ORDERED: K-TAB ER20 ME2 PO (14:09)
--- NOTE | 2024-10-23 14:09 | NUR ---
THE PT WILL BE DISCHARGING TODAY, HOME HEALTH REFERALS SENT. MEDICATIONS FAXED TO [facility]. ALL BELONGINGS PACKED UP FOR THE PT. TRANSPORT SET UP FOR 1430. THE PT'S POWDERGLICE WAS D/C'D BY THIS RN. SEE NOTES FOR ANY UPDATES OR CONCERNS.
[2024-10-23] MEDS ORDERED: Calcium Citrate 950 MG Tab PO SCH (21:00)
== END 2024-10-23 14:45 | disposition home health service (06) | DRG 309 ==
LOC: ER 09:26 → PCU 09:27
PROVIDERS: Emergency Medicine; Family Medicine; Student in an Organized Health Care Education/Training Program; ADMIT Hospitalist
DX: I48.92 Unspecified atrial flutter (principal); E87.3 Alkalosis; F11.23 Opioid dependence with withdrawal; I50.32 Chronic diastolic (congestive) heart failure; I48.0 Paroxysmal atrial fibrillation; Z66 Do not resuscitate; I11.0 Hypertensive heart disease with heart failure; I25.10 Atherosclerotic heart disease of native coronary artery without angina pectoris; G47.33 Obstructive sleep apnea (adult) (pediatric); E11.9 Type 2 diabetes mellitus without complications; F32.A Depression, unspecified; G89.29 Other chronic pain; N40.0 Benign prostatic hyperplasia without lower urinary tract symptoms; M54.50 Low back pain, unspecified; F12.10 Cannabis abuse, uncomplicated; F43.10 Post-traumatic stress disorder, unspecified; R06.4 Hyperventilation; F41.9 Anxiety disorder, unspecified; J45.909 Unspecified asthma, uncomplicated; K21.9 Gastro-esophageal reflux disease without esophagitis; E83.42 Hypomagnesemia; E83.51 Hypocalcemia; L89.302 Pressure ulcer of unspecified buttock, stage 2; E87.6 Hypokalemia; R19.7 Diarrhea, unspecified; R10.84 Generalized abdominal pain; I45.81 Long QT syndrome; Z98.890 Other specified postprocedural states; Z87.19 Personal history of other diseases of the digestive system; Z99.89 Dependence on other enabling machines and devices; I25.2 Old myocardial infarction; Z86.73 Personal history of transient ischemic attack (TIA), and cerebral infarction without residual deficits; Z88.8 Allergy status to other drugs, medicaments and biological substances; Z88.5 Allergy status to narcotic agent; Z79.01 Long term (current) use of anticoagulants; Z79.51 Long term (current) use of inhaled steroids; Z79.899 Other long term (current) drug therapy; Z79.811 Long term (current) use of aromatase inhibitors; Z90.49 Acquired absence of other specified parts of digestive tract; Z98.1 Arthrodesis status; Z79.84 Long term (current) use of oral hypoglycemic drugs; Z91.148 Patient's other noncompliance with medication regimen for other reason
CPT/HCPCS: 36415; 71045; 71260; 80048; 80053; 80061; 82306; 82310; 82330; 82570; 82803; 82947; 83036; 83735; 83880; 83970; 84100; 84443; 84484; 85025; 85027; 93005; 93010; 93306; 94640; 94664; 94760; 94762; 96365; 96366; 96367; 96368; 96372; 96375; 96376; 97161; 97530; 99285-25; A9270; C1751; G0378; J0612; J0780; J1171; J1650; J1790; J2270; J3475; J3480; J7030; J7050; J7060; Q9967

== ENCOUNTER 2024-11-15 18:46 | Emergency (ER) | payer OTHER ==
[~2024-11-15] VITALS: Ht 180.3 cm; Wt 104.3 kg
[~2024-11-15 18:46] MED LIST changes: +Aspir 8181 MG PO; +BANATROL PLUS1 EAC1 PO; +CALCIUM CITRATE PO; +ENTRESTO 24 MG1 EAC2 PO; +FISH OIL 1,0001 EA10 PO; +FLUTICASONE-SA1 EAC1 INH; +JARDIANCE10 MG PO; +K-TAB ER20 ME2 PO; +LIPITOR80 MG PO; +MAGNESIUM OXID400 M1 PO; +METF500 PO; +METF500C PO; +SPIR25 PO; +TRANSDERM-SCOP1 EA10 TD; +VITAMIN D5000 UNIT PO
[2024-11-15 20:09] LABS: BASOPHILS ABSOLUTE AUTO 0.01 K/mm3 (0.00-0.23); BASOPHILS PERCENT AUTO 0 % (0-2); EOSINOPHILS ABSOLUTE AUTO 0.04 K/mm3 (0.00-0.68); EOSINOPHILS PERCENT AUTO 0 % (0-6); Hematocrit 43.9 % (37.0-53.0); IMMATURE GRAN ABSOLUTE AUTO 0.04 K/mm3 (0.00-0.10); IMMATURE GRAN PERCENT AUTO 0 % (0-1); LYMPHOCYTES ABSOLUTE AUTO 1.98 K/mm3 (0.84-5.20); LYMPHOCYTES PERCENT AUTO 17 % (21-46); MONOCYTES ABSOLUTE AUTO 1.26 K/mm3 (0.16-1.47); MONOCYTES PERCENT AUTO 11 % (4-13); Mean Corpuscular HGB 29.4 pg (26.0-34.0); Mean Corpuscular HGB Conc 34.2 g/dL (31.5-36.5); Mean Corpuscular Volume 86 fL (80-100); Mean Platelet Volume 9.7 fL (9.1-12.4); NEUTROPHILS ABSOLUTE AUTO 8.15 K/mm3 (1.96-9.15); NEUTROPHILS PERCENT AUTO 71 % (41-73); Platelet Count 199 K/mm3 (150-400); RDW Coefficient Variation 15.8 % (11.7-14.2); RDW Standard Deviation 49.4 fL (35.1-46.3); Red Blood Cell Count 5.11 M/mm3 (4.30-5.90); White Blood Cell Count 11.48 K/mm3 (4.00-11.30)
[2024-11-15 20:46] LABS: Albumin, Blood 3.9 g/dL (3.4-5.0); Albumin/Globulin Ratio 1.4 (0.8-1.8); Bilirubin, Total 0.8 mg/dL (0.1-1.0); Bun/Creatinine Ratio 16.9 (12.0-20.0); Calcium, Blood 8.3 mg/dL (8.5-10.1); Creatinine, Blood 1.24 mg/dL (0.60-1.20); Globulin, Blood 2.8 g/dL (2.2-4.0); Potassium, Blood 3.5 mmol/L (3.5-5.5); Total Protein, Blood 6.7 g/dL (6.4-8.2)
[2024-11-15] MEDS ORDERED: METO10 PO (21:27)
[2024-11-15 22:25] VITALS: BP 108/80
== END 2024-11-15 22:25 | disposition home or self-care (01) ==
LOC: ER 18:46
PROVIDERS: Emergency Medicine
DX: R11.10 Vomiting, unspecified (principal); R19.7 Diarrhea, unspecified; Z04.3 Encounter for examination and observation following other accident; I48.0 Paroxysmal atrial fibrillation; E11.9 Type 2 diabetes mellitus without complications; I10 Essential (primary) hypertension; I25.2 Old myocardial infarction; I25.10 Atherosclerotic heart disease of native coronary artery without angina pectoris; G47.33 Obstructive sleep apnea (adult) (pediatric); N40.0 Benign prostatic hyperplasia without lower urinary tract symptoms; K21.9 Gastro-esophageal reflux disease without esophagitis; Z86.73 Personal history of transient ischemic attack (TIA), and cerebral infarction without residual deficits; Z88.5 Allergy status to narcotic agent; Z88.4 Allergy status to anesthetic agent; Z79.01 Long term (current) use of anticoagulants; Z79.82 Long term (current) use of aspirin; Z79.84 Long term (current) use of oral hypoglycemic drugs; Z79.899 Other long term (current) drug therapy; W18.30XA Fall on same level, unspecified, initial encounter
CPT/HCPCS: 80053; 85025; 93005; 93010; 99284-25

== ENCOUNTER → 2024-11-16 | Outpatient (CLI) | payer OTHER ==
[~2024-11-16] MED LIST changes: +METO10 PO
[2024-11-16 13:54] LABS: Source, Urine Clean Catch
[2024-11-16 14:21] LABS: Appearance, Urine Clear (Clear); Bilirubin, Urine Neg (Neg); Blood, Urine Neg (Neg); Color, Urine Yellow (P-Yellow); Glucose Qualitative, Urine 4+ (Neg); Ketones, Urine Neg (Neg); Leukocyte Esterase, Urine 1+ (Neg); Nitrite, Urine Neg (Neg); Protein, Urine 2+ (Neg); Specific Gravity, Urine 1.015 (1.003-1.022); Urobilinogen, Urine NORM (Normal)
[2024-11-16 14:33] LABS: Bacteria Many /hpf; Mucus Heavy (0-Heavy); Squamous Epithelial Cells Rare /hpf (Few)
== END ==
LOC: LAB 13:52 → LAB SHORT 13:52
PROVIDERS: Nurse Practitioner
DX: N36.0 Urethral fistula (principal)
CPT/HCPCS: 81001; 87086

== ENCOUNTER 2024-12-27 17:00 | Inpatient (IN) | payer OTHER ==
[~2024-12-27] VITALS: Ht 180.3 cm; Wt 103.0 kg
[2024-12-27 17:37] LABS: Source, Urine Clean Catch
[2024-12-27 17:44] LABS: Appearance, Urine Clear (Clear); Bilirubin, Urine Neg (Neg); Blood, Urine Neg (Neg); Color, Urine Yellow (P-Yellow); Glucose Qualitative, Urine 4+ (Neg); Ketones, Urine 1+ (Neg); Leukocyte Esterase, Urine Neg (Neg); Nitrite, Urine Neg (Neg); Protein, Urine 1+ (Neg); Specific Gravity, Urine 1.025 (1.003-1.022); Urobilinogen, Urine NORM (Normal)
[2024-12-27 18:15] LABS: BASOPHILS ABSOLUTE AUTO 0.01 K/mm3 (0.00-0.23); BASOPHILS PERCENT AUTO 0 % (0-2); EOSINOPHILS ABSOLUTE AUTO 0.33 K/mm3 (0.00-0.68); EOSINOPHILS PERCENT AUTO 4 % (0-6); Hematocrit 40.6 % (37.0-53.0); Hemoglobin 13.7 g/dL (13.5-17.5); IMMATURE GRAN ABSOLUTE AUTO 0.04 K/mm3 (0.00-0.10); IMMATURE GRAN PERCENT AUTO 1 % (0-1); LYMPHOCYTES ABSOLUTE AUTO 1.47 K/mm3 (0.84-5.20); LYMPHOCYTES PERCENT AUTO 17 % (21-46); MONOCYTES ABSOLUTE AUTO 0.82 K/mm3 (0.16-1.47); MONOCYTES PERCENT AUTO 9 % (4-13); Mean Corpuscular HGB 29.7 pg (26.0-34.0); Mean Corpuscular HGB Conc 33.7 g/dL (31.5-36.5); Mean Corpuscular Volume 88 fL (80-100); NEUTROPHILS ABSOLUTE AUTO 6.14 K/mm3 (1.96-9.15); NEUTROPHILS PERCENT AUTO 70 % (41-73); Platelet Count 178 K/mm3 (150-400); RDW Coefficient Variation 15.8 % (11.7-14.2); RDW Standard Deviation 50.3 fL (35.1-46.3); Red Blood Cell Count 4.62 M/mm3 (4.30-5.90); White Blood Cell Count 8.81 K/mm3 (4.00-11.30)
[2024-12-27 19:03] LABS: Albumin, Blood 3.4 g/dL (3.4-5.0); Albumin/Globulin Ratio 1.1 (0.8-1.8); Bilirubin, Total 0.8 mg/dL (0.1-1.0); Bun/Creatinine Ratio 17.3 (12.0-20.0); Creatinine, Blood 1.04 mg/dL (0.60-1.20); Globulin, Blood 3.1 g/dL (2.2-4.0); Magnesium, Blood 1.6 mg/dL (1.6-2.4); Thyroid Stimulating Hormone 0.841 uIU/mL (0.360-4.800); Total Protein, Blood 6.5 g/dL (6.4-8.2)
[2024-12-27] MEDS ORDERED: Metoprolol Tartrate 1 MG/ML 5 ML VIAL IV PRN (20:20)
[2024-12-27] MEDS ORDERED: Baclofen 10 MG Tab PO PRN (20:35)
[2024-12-27] MEDS ORDERED: Albuterol 2.5 MG/3 ML VIAL INH PRN (20:35)
[2024-12-27] MEDS ORDERED: Rivaroxaban 10 MG Tab PO SCH (21:00)
[2024-12-27] MEDS ORDERED: Metoprolol Succinate 25 MG TABCR PO SCH (21:00)
[2024-12-27] MEDS ORDERED: Metoprolol Tartrate 1 MG/ML 5 ML VIAL IV ONE (21:00)
[2024-12-27] MEDS ORDERED: Morphine Sulfate 15 MG TABCR PO SCH (21:00)
[2024-12-27] MEDS ORDERED: Morphine Sulfate 4 MG/1 ML Injection IV ONE (21:00)
[2024-12-27 22:32] LABS: Adenovirus Not Detected (NOT DETECT); Bordetella pertussis Not Detected (NOT DETECT); Chlamydophila pneumoniae Not Detected (NOT DETECT); Coronavirus 229E Not Detected (NOT DETECT); Coronavirus HKU1 Not Detected (NOT DETECT); Coronavirus NL63 Not Detected (NOT DETECT); Coronavirus OC43 Not Detected (NOT DETECT); Human Metapneumovirus Not Detected (NOT DETECT); Human Rhinovirus/Enterovirus Detected (NOT DETECT); Influenza A/2009-H1 Not Detected (NOT DETECT); Influenza A/H1 Not Detected (NOT DETECT); Influenza A/H3 Not Detected (NOT DETECT); Influenza B Not Detected (NOT DETECT); Mycoplasma pneumoniae Not Detected (NOT DETECT); Parainfluenza Virus 1 Not Detected (NOT DETECT); Parainfluenza Virus 2 Not Detected (NOT DETECT); Parainfluenza Virus 3 Not Detected (NOT DETECT); Parainfluenza Virus 4 Not Detected (NOT DETECT); Respiratory Syncytial Virus Not Detected (NOT DETECT); SARS-Cov-2 (COVID-19), BioFire Not Detected (NOT DETECT)
[2024-12-27 22:35] VITALS: BP 138/112
[2024-12-27] MEDS ORDERED: Mometasone/Formoterol MDI 200/5 mcg 13 GM INH SCH (22:55)
[2024-12-27] MEDS ORDERED: VITAMIN D5000 UNIT PO (23:06)
[2024-12-27] MEDS ORDERED: METO25ER PO (23:07)
[2024-12-27] MEDS ORDERED: METF500 PO (23:07)
--- NOTE | 2024-12-27 23:20 | NUR ---
ADMIT NOTE REPORT RECIVED BY THIS RN @ APPROX [id number], FROM [facility]ONU. PT ARRIVED TO ROOM AND SELF TRANSFERED TO PCU BED WITH CANE HR ELEVATED WITH ACTIVITY BUT CAME DOWN ON ITS OWN WITH REST, OTHER BEAVER VSS, PT IS ALERT AND HOLDING APPROPRIATE CONVERSATION
[2024-12-27 23:45] VITALS: BP 113/93
[2024-12-28] VITALS (10 sets, daily range): BP systolic 110–151; BP diastolic 83–114
[2024-12-28 05:28] LABS: Bun/Creatinine Ratio 18.3 (12.0-20.0); Calcium, Blood 8.2 mg/dL (8.5-10.1); Creatinine, Blood 1.04 mg/dL (0.60-1.20); Magnesium, Blood 1.7 mg/dL (1.6-2.4)
--- NOTE | 2024-12-28 05:41 | NUR ---
SHIFT SUMMARY PT IS A&O X4, ABLE TO MAKE NEEDS KNOWN, MOVING ALL EXTREMITIES WITH PURPOSE, REPOSITIONING SELF IN BED, USING CALL LIGHT APPROPRIATELY, SBA FOR AMBULATION WITH CANE/ PT STATES HE USES THE CANE FOR BALANCE. CONTINUOUS SPO2, SPO2 GREATER THAN 90% ON RA, PT REPORTS SOB, NO SIGNS OF RESPIRATORY DISTRESS NOTED THIS SHIFT, LUNGS SOUND CRACKLY T/O. CONTINUOUS TELE MONITORING,AFLUTTER 80-90 S WHILE AT REST AND 110-130 S WITH ACTIVITY, REPORTS CHEST PAIN BUT STATES THAT IT IS UNCHANGED AND BETTER FROM WHEN HE ARRIVED TO TO THE ED, PT DENIES FEELINGS OF DIZZINESS, PULSES PRESENT T/O, CAP REFILL WNL. BOWEL TONES PRESENT IN ALL 4Q, PT DENIES FEELINGS OF NAUSEA OR CONSTIPATION PT VOIDING IND, URINE YELLOW IN COLOR BED LOWEST POSITION, CALL LIGHT IN REACH, AWAITING TO GIVE REPORT TO ONCOMING RN.
[2024-12-28] MEDS ORDERED: Pantoprazole Sodium 40 MG Tab PO SCH (06:00)
[2024-12-28] MEDS ORDERED: Insulin Human Lispro 100 Units/ML 3ML Syringe SC SCH ×3 (07:30→16:30)
[2024-12-28] MEDS ORDERED: DULoxetine HCL 20 MG Cap DR PO SCH (09:00)
[2024-12-28] MEDS ORDERED: Empagliflozin 10 MG TAB PO SCH (09:00)
[2024-12-28] MEDS ORDERED: Spironolactone 25 MG Tab PO SCH (09:00)
[2024-12-28] MEDS ORDERED: Tamsulosin HCl 0.4 MG Cap PO SCH (09:00)
[2024-12-28] MEDS ORDERED: Metoprolol Succinate 25 MG TABCR PO SCH ×2 (10:00→12:00)
[2024-12-28] MEDS ORDERED: Ipratropium/Albuterol SulF 2.5-0.5MG/3 ML Amp INH SCH ×2 (10:55→11:35)
[2024-12-28] MEDS ORDERED: Ondansetron 4 MG SoluTab MM PRN (13:00)
[2024-12-28] MEDS ORDERED: MethylPREDNISolone Sod Succ 40 MG VIAL IV SCH (13:00)
[2024-12-28] MEDS ORDERED: Benzonatate 100 MG Cap PO PRN (13:00)
[2024-12-28] MEDS ORDERED: Albuterol 2.5 MG/3 ML VIAL INH PRN (13:05)
[2024-12-28] MEDS ORDERED: Gabapentin 400 MG Cap PO PRN (13:05)
--- NOTE | 2024-12-28 17:07 | NUR ---
SHIFT SUMMARY: PT IS A/OX4 CALLS APPROPRIATELY AND IS ABLE TO MAKE NEEDS KNOWN. PT HAS BEEN A-FIB W/ RVR 130'S MOST OF SHIFT OCCASIONALLY 100'S. MANAGED PER EMAR. PT IS ON ROOM AIR GREATER THAN 92% T/O SHIFT. PT IS A SBA W/ CANE TO BTHRM. PT IS VOIDING IN URINAL TO MEASURE. DURING ASSESSMENT STAGE 2 PRESSURE ULCER NOTED ON PT BUTTOCKS. PRIMARY RN NOTIFIED MD AND RECIEVED AN ORDER FOR DAILY MEPILEX CHANGES AND PRN. MEPILEX IN PLACE. PT SWITCHED TO DNR PER POLST FORM AT HOME, AWARE AND ORDERS PLACED. IV METOPROLOL PUSH GIVEN X3 TODAY, PT HR IN 130'S-140'S BEFORE MEDICATION, AFTER MEDICATED HR IS 90'S-100'S. AWARE. WILL REPORT TO ONCOMING RN.
[2024-12-28] MEDS ORDERED: Sacubitril/Valsartan 49 MG/51 MG Tab PO SCH (21:00)
[2024-12-28] MEDS ORDERED: Calcium Citrate 950 MG Tab PO SCH (21:00)
[2024-12-28] MEDS ORDERED: Atorvastatin 40 MG Tab PO SCH (21:00)
[2024-12-28] MEDS ORDERED: GuaiFENesin 600 MG TabCR PO SCH (21:00)
[2024-12-29] VITALS (7 sets, daily range): BP systolic 98–147; BP diastolic 70–94
[2024-12-29 04:41] LABS: Hematocrit 42.8 % (37.0-53.0); Hemoglobin 14.6 g/dL (13.5-17.5); Mean Corpuscular HGB Conc 34.1 g/dL (31.5-36.5); Mean Corpuscular Volume 88 fL (80-100); Mean Platelet Volume 10.1 fL (9.1-12.4); Platelet Count 204 K/mm3 (150-400); RDW Coefficient Variation 15.7 % (11.7-14.2); RDW Standard Deviation 50.3 fL (35.1-46.3); Red Blood Cell Count 4.87 M/mm3 (4.30-5.90); White Blood Cell Count 6.59 K/mm3 (4.00-11.30)
[2024-12-29 05:06] LABS: Albumin, Blood 3.5 g/dL (3.4-5.0); Anion Gap 11 mmol/L (3-11); Blood Urea Nitrogen 25 mg/dL (8-24); Bun/Creatinine Ratio 25.1 (12.0-20.0); CO2, Blood 23 mmol/L (21-32); Calcium, Blood 8.4 mg/dL (8.5-10.1); Chloride, Blood 105 mmol/L (98-108); Glomerular Filtration Rate 78 (60-); Glucose, Blood 180 mg/dL (70-99); Magnesium, Blood 1.7 mg/dL (1.6-2.4); Phosphorus, Blood 3.5 mg/dL (2.5-4.9); Sodium, Blood 135 mmol/L (136-145)
--- NOTE | 2024-12-29 06:04 | NUR ---
SHIFT SUMMARY PT IS A&O X4, ABLE TO MAKE NEEDS KNOWN, MOVING ALL EXTREMITIES WITH PURPOSE, REPOSITIONING SELF IN BED, USING CALL LIGHT APPROPRIATELY, SBA FOR AMBULATION WITH CANE. CONTINUOUS SPO2, SPO2 GREATER THAN 90% ON RA, PT REPORTS SOB THAT HE SAYS IS DUE TO CONGESTION, NO SIGNS OF RESPIRATORY DISTRESS NOTED THIS SHIFT, LUNGS SOUND CRACKLY T/O BUT IMPROVED SINCE PREVIOUS SHIFT. CONTINUOUS TELE MONITORING,AFLUTTER 100 S WHILE AT REST AND 110-130 S WITH ACTIVITY/ PRN METOPROLOL GIVEN PER EMAR, PT DENIES CHEST P/P THIS SHIFT, PT DENIES FEELINGS OF DIZZINESS, PULSES PRESENT T/O, CAP REFILL WNL. BOWEL TONES PRESENT IN ALL 4Q, PT DENIES FEELINGS OF NAUSEA OR CONSTIPATION PT VOIDING IND, URINE YELLOW IN COLOR PT HAS WOUND TO COCCYX THAT HE STATES HE HAS HAD FOR A LONG TIME, MEPILEX IN PLACED AND IS C/D/I BED LOWEST POSITION, CALL LIGHT IN REACH, AWAITING TO GIVE REPORT TO ONCOMING RN.
[2024-12-29] MEDS ORDERED: Lactobacil 2-S.Thermo-Bifido 1 1 Cap PO SCH (09:00)
[2024-12-29] MEDS ORDERED: Cholecalciferol 1000 Unit Tablet (=25MCG) PO SCH (09:00)
[2024-12-29] MEDS ORDERED: Digoxin 0.25 MG/ML 2ML Amp IV ONE (12:40)
[2024-12-29] MEDS ORDERED: Metoprolol Succinate 25 MG TABCR PO SCH (14:00)
--- NOTE | 2024-12-29 17:39 | NUR ---
PT HR STILL HIGH IN 103'S-140'S WITH HTN\\RATE MED CHANGES, BP TOLERATING. PT UP TO BATHROOM MULTIPLE TIMES TODAY, GETS "WINDED" WHILE MOVING, NO CHANGE IN HR RATE RANGE WHEN UP.
[2024-12-29] MEDS ORDERED: Digoxin 0.25 MG/ML 2ML Amp IV PRN (18:00)
[2024-12-29] MEDS ORDERED: Digoxin 0.25 MG Tab PO SCH (18:00)
[2024-12-29] MEDS ORDERED: Insulin Human Lispro 100 Units/ML 3ML Syringe SC SCH (20:00)
[2024-12-30] VITALS (8 sets, daily range): BP systolic 114–152; BP diastolic 87–99
[2024-12-30 06:14] LABS: Albumin, Blood 3.5 g/dL (3.4-5.0); Anion Gap 10 mmol/L (3-11); Blood Urea Nitrogen 29 mg/dL (8-24); Bun/Creatinine Ratio 26.1 (12.0-20.0); CO2, Blood 22 mmol/L (21-32); Calcium, Blood 8.4 mg/dL (8.5-10.1); Chloride, Blood 107 mmol/L (98-108); Creatinine, Blood 1.11 mg/dL (0.60-1.20); Glomerular Filtration Rate 69 (60-); Glucose, Blood 174 mg/dL (70-99); Phosphorus, Blood 3.9 mg/dL (2.5-4.9); Potassium, Blood 4.2 mmol/L (3.5-5.5); Sodium, Blood 135 mmol/L (136-145)
--- NOTE | 2024-12-30 06:26 | NUR ---
End of Shift Summary Pt HR elevated two dose of digoxin given at 1930 and 0130 respectively. Asympotmatic with rest and fatigue with excertion. VSS at this time. No pain vocalized. HR 102 and up to recliner.
[2024-12-30] MEDS ORDERED: Digoxin 0.125 MG Tab PO SCH (09:00)
[2024-12-30] MEDS ORDERED: Metoprolol Succinate 50 MG TABCR PO SCH (09:00)
--- NOTE | 2024-12-30 17:50 | NUR ---
SHIFT SUMMARY PT AO/X AND COOPERATIVE OF CARE. PT ABLE TO EXPRESS NEEDS AND CALLS APPROPIATE. PT ABLE TO AMBULATE TO THE BATHROOM USING PERSONAL CANE FROM HOME, TOLERATES FAIR. PT HR TACHS UP WHEN PT IS AMBULATING, HR REACHES 140-160'S WITH AMBULATION. PT REPORTS SOB WHEN HR IS IN THE 140'S AND ABOVE. OTHE RVSS THROUGHOUT SHIFT. PT DENIED CHEST PAIN/PRESSURE THROUGHOUT SHIFT. PT HAD BM THIS MORNING, FLUSHED BUT REPRTED NORMAL BM. HR CONSISTIENTLY ST IN 90'S WHEN PT IS AT REST.
--- NOTE | 2024-12-30 23:36 | NUR ---
SHIFT SUMMARY PT'S HR IS IN THE 90'S WHILE LAYING IN BED, THEN GOES TO 130'S WHILE AMBULATING TO THE BATHROOM. +1 BLE EDEMA. DENIES CP.
[2024-12-31 03:46] VITALS: BP 119/82
[2024-12-31 08:31] VITALS: BP 154/104
[2024-12-31] MEDS ORDERED: DIGOX125 MC1 PO (11:59)
[2024-12-31] MEDS ORDERED: INSULIN GL100 UNIT/2 SC (12:00)
[2024-12-31] MEDS ORDERED: PRED20 PO (12:04)
[2024-12-31] MEDS ORDERED: METO100ER PO (12:06)
--- NOTE | 2024-12-31 13:17 | NUR ---
DISHCARGE SUMMARY S/P A FLUTTER, A/OX4, VSS, TOLERATING PO, PAIN AT HIS BASELINE AND MANAGED WITH HIS HOME REGIMEN, HE REPORTS SOME MILD SOB BUT STATES IT HAS BEEN IMPROVING OVER THE LAST FEW DAYS, AMBULATING WITH A CANE WHICH IS HIS BASELINE FOR MOBILITY, REMOVED IV ACCESS WHILE DISCUSSING DC INSTRUCTIONS. DISCUSSED DISCHARGE INSTRUCTIONS INCLUDING HOME CARE, MEDICATIONS, AND FOLLOW UP APPOINTMENTS. NO QUESTIONS AT THIS TIME, ESCORTED OUT VIA WC TO A [facility] TO GO HOME.
== END 2024-12-31 12:55 | disposition home or self-care (01) | DRG 309 ==
LOC: ER 17:00 → ERHOLD 17:01 → PCU 17:01
PROVIDERS: Emergency Medicine; Internal Medicine; Nurse Practitioner Acute Care; ADMIT Internal Medicine
DX: I48.92 Unspecified atrial flutter (principal); E87.1 Hypo-osmolality and hyponatremia; F11.20 Opioid dependence, uncomplicated; I50.22 Chronic systolic (congestive) heart failure; J44.1 Chronic obstructive pulmonary disease with (acute) exacerbation; I13.0 Hypertensive heart and chronic kidney disease with heart failure and stage 1 through stage 4 chronic kidney disease, or unspecified chronic kidney disease; J61 Pneumoconiosis due to asbestos and other mineral fibers; I48.19 Other persistent atrial fibrillation; J20.6 Acute bronchitis due to rhinovirus; E11.40 Type 2 diabetes mellitus with diabetic neuropathy, unspecified; G89.4 Chronic pain syndrome; L89.312 Pressure ulcer of right buttock, stage 2; I25.10 Atherosclerotic heart disease of native coronary artery without angina pectoris; F43.10 Post-traumatic stress disorder, unspecified; N40.0 Benign prostatic hyperplasia without lower urinary tract symptoms; E11.22 Type 2 diabetes mellitus with diabetic chronic kidney disease; N18.30 Chronic kidney disease, stage 3 unspecified; H91.91 Unspecified hearing loss, right ear; F32.9 Major depressive disorder, single episode, unspecified; E55.9 Vitamin D deficiency, unspecified; K21.9 Gastro-esophageal reflux disease without esophagitis; K59.09 Other constipation; B97.89 Other viral agents as the cause of diseases classified elsewhere; Z88.5 Allergy status to narcotic agent; Z88.8 Allergy status to other drugs, medicaments and biological substances; Z79.899 Other long term (current) drug therapy; Z79.01 Long term (current) use of anticoagulants; Z79.82 Long term (current) use of aspirin; Z79.4 Long term (current) use of insulin; Z79.84 Long term (current) use of oral hypoglycemic drugs; I25.2 Old myocardial infarction; G47.33 Obstructive sleep apnea (adult) (pediatric); Z86.73 Personal history of transient ischemic attack (TIA), and cerebral infarction without residual deficits; M54.9 Dorsalgia, unspecified; Z90.49 Acquired absence of other specified parts of digestive tract; Z98.890 Other specified postprocedural states; Z98.1 Arthrodesis status; Z86.19 Personal history of other infectious and parasitic diseases; Z87.19 Personal history of other diseases of the digestive system
CPT/HCPCS: 0202U; 36415; 36416; 71046; 80048; 80053; 80069; 80162; 82947; 83605; 83735; 83880; 84100; 84443; 84484; 85025; 85027; 85379; 93005; 93010; 94640; 94664; 94760; 94762; 96374; 96375; 96376; 99285-25; A9270; G0378; J1160; J2270; J2919